=== PATIENT | female | born 1965 | race Caucasian/White ===

== ENCOUNTER → 2018-04-21 22:58 | Outpatient (CLI) | payer OTHER, SELFPAY ==
[2018-04-24 14:27] LABS: HPV Reflexed? NOT INDICATED
== END ==
PROVIDERS: Family Provider Family Medicine; PCP Family Medicine; Visit Provider Nurse Practitioner Adult Health
DX: Z01.419 Encounter for gynecological examination (general) (routine) without abnormal findings (principal)
CPT/HCPCS: 88175; G0145

== ENCOUNTER → 2018-04-23 15:42 | Outpatient (CLI) | payer OTHER, SELFPAY ==
--- NOTE | 2018-04-23 15:48 | RAD_ITS ---
STUDY: X-RAY - CERVICAL SPINE REASON FOR EXAM: Female, 53 years old. Neck pain for one year. TECHNIQUE: 5 view(s) of the cervical spine were obtained. COMPARISON: None FINDINGS: Normal anterior atlantoaxial articulation. Normal odontoid process. Straightening of the cervical spine. Negative for fracture, osteolytic or blastic bone lesion. Moderate disc narrowing and spondylitic endplate changes at C3-4 and C4-5. Mild disc narrowing at C2-3. Minimal disc narrowing at C5-6. Posterior elements are normally located. Foraminal narrowing on the right at C3 and C4. The oblique radiograph of the left side is steep for evaluation of the foramina. I suspect there is also foraminal narrowing at C3 and C4. RAD/Cerv Spine 4 or 5 Views IMPRESSION: Straightening of the cervical spine with otherwise normal alignment. Degenerative disc findings as stated above which are more severe at C3-4 and C4-5 with foraminal narrowing at C3 and C4 on the right. The oblique radiograph demonstrating the left foramina is too steep. Probably foraminal narrowing at the same levels. Electronically Signed: Olga Carranza MD at 0:02 EDT , Service support ,
== END ==
PROVIDERS: Family Provider Family Medicine; PCP Family Medicine; Visit Provider Nurse Practitioner Adult Health
DX: M54.2 Cervicalgia (principal)
CPT/HCPCS: 72050

== ENCOUNTER → 2018-04-25 08:50 | Outpatient (CLI) | payer OTHER, SELFPAY ==
[2018-04-25 09:44] LABS: Anion Gap 6 (5-15); BUN 15 mg/dL (7-18); BUN/Creat Ratio 20.1 RATIO (10-20); Chloride 106 mmol/L (98-107); Cholesterol 177 mg/dL (200); Creatinine, Serum 0.75 mg/dL (0.55-1.02); EST Glomerular Filtration Rate 87 mL/min (>60); Est Glom Filt Rate - Afr Amer 105 mL/min (>60); Glucose 94 mg/dL (74-106); High Density Lipoprotein 58 mg/dL; Potassium 4.2 mmol/L (3.5-5.1); Sodium Level 140 mmol/L (136-145); Thyroid Stim Hormone (TSH) 1.28 uIU/mL (0.358-3.74); Triglycerides 117 mg/dL; Very Low Density Lipoprotein 23 mg/dL (5-40)
== END ==
PROVIDERS: Family Provider Family Medicine; PCP Family Medicine; Visit Provider Nurse Practitioner Adult Health
DX: R63.5 Abnormal weight gain (principal)
CPT/HCPCS: 36415; 80048; 80061; 84443

== ENCOUNTER → 2018-06-10 15:00 | Outpatient (CLI) | payer OTHER, SELFPAY | PROVIDERS: Family Provider Family Medicine; PCP Family Medicine; Visit Provider Family Medicine | DX: Z12.31 Encounter for screening mammogram for malignant neoplasm of breast (principal) | CPT/HCPCS: 77063; 77067 ==

== ENCOUNTER 2018-08-17 15:00 | Outpatient (RCR) | payer OTHER, SELFPAY ==
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
--- NOTE | 2018-08-17 16:06 | HP.PTDCSUM ---
HP - PT D/C Summary It has been my pleasure to treat GENNY NEWMAN under orders from Rainer Teran, for the diagnosis of CERVICAL DDD for a total of 12 visit(s). Discharge Date: 08/17/18 Please see the following information for a summary of their discharge status. - Subjective Subjective: PATIENT REPORTS SHE IS MUCH BETTER OVER ALL. SHE REPORTS THAT THE RETRACTIONS AND ISOMETRIC REALLY HELP WHEN SHE STARTS TO GET INCREASED PAIN. SHE REPORTS THAT OVER-ALL HER PAIN IS MUCH BETTER BUT SHE STILL HAS AT LEAST SOME PAIN ALL THE TIME. SHE REPORTS THAT SHE IS NO LONGER HAVING ANY UE SX'S AND SHE FEELS STRONGER. SHE IS NO LONGER DROPPING THINGS AND SHE IS SLEEPING BETTER. SHE IS NO LONGER BEING AWAKEND AT NIGHT BY NUMBNESS IN HER HANDS. IF I COULD JUST STAY LIKE I AM NOW I WOULD BE FINE. I DON'T HAVE TO TAKE ANY MEDICATION AND THEY EXERCISES HELP A LOT. PATIENT REPORTS SHE WAS VERY SKEPTICAL ABOUT PT BEING ABLE TO HELP BUT SHE IS REALLY GLAD SHE DID IT. PATIENT REPORTS FULL UNLIMITED FUNCTION BECAUSE SHE CAN PUSH THROUGH IF NEEDED. - Pain NECK Pain Intensity (Out of 10): 1 UE'S Pain Intensity (Out of 10): 0 - Overall Improvement % Improvement: 80 - Objective Objective/Function: ALL GOALS MET. THERE IS GOOD INDICATION THAT PATIENT WILL CONTINUE TO IMPROVE WITH FOLLOW THROUGH OF THE INSTRUCTIONS SHE HAS BEEN GIVEN. UPON EXAM: Cervical Mvmt Loss: Flex: NIL. Pro: NIL. Ext: MOD. Ret: MOD. RSB: VERY MINIMAL. LSB: VERY MINIMAL. R Rot: VERY MINIMAL. L Rot: VERY MINIMAL. NO C/O INCREASED PAIN WITH C/S ROM TESTING ALL PLANES. Postural strength: GOOD. INDEP HEP. - Goals Goal 1:: DECREASE C/O NECK AND TYRONE UE SX'S. Goal Progress: Goal Met Goal 2:: IMPROVE LIFTING, READING, WORK, DRIVING, RECREATIONAL AND SLEEP FUNCTION Goal Progress: Goal Met Goal 3:: INSTRUCT IN PROPHYLAXIS Goal Progress: Goal Met - Plan Plan: D/C TO HEP AND PROPER POSTURE CONTROL AND BODY MECHANICS ALONG WITH APPROPRIATE ACTIVITY MODIFICATIONS WHEN PAIN INCRASES. SHE PLANS TO FOLLOW UP WITH DR. TERAN NEEDED. SHE IS AGREEABLE TO DISCHARGE. - D/C Information If there are questions or concerns regarding this patient's physical therapy, please feel free to call me at [phone]. Thank you for the referral of this patient. Sincerely, Joana Starkey
== END 2018-08-17 19:00 | disposition home or self-care (01) ==
LOC: PT 15:00
PROVIDERS: Family Provider Family Medicine; PCP Family Medicine; Visit Provider Family Medicine
DX: M50.30 Other cervical disc degeneration, unspecified cervical region (principal)
CPT/HCPCS: 97012; 97035; 97110; 97140; 97162; 97530

== ENCOUNTER → 2019-04-28 | Outpatient (CLI) | payer OTHER, SELFPAY ==
[2019-04-28 11:18] LABS: Anion Gap 7 (5-15); BUN 17 mg/dL (7-18); BUN/Creat Ratio 21.5 RATIO (10-20); Calcium,Total 9.1 mg/dL (8.5-10.1); Chloride 106 mmol/L (98-107); Cholesterol 214 mg/dL (200); Creatinine, Serum 0.79 mg/dL (0.55-1.02); EST Glomerular Filtration Rate 81 mL/min (>60); Est Glom Filt Rate - Afr Amer 98 mL/min (>60); Glucose 102 mg/dL (74-106); High Density Lipoprotein 54 mg/dL; Potassium 4.1 mmol/L (3.5-5.1); Sodium Level 141 mmol/L (136-145); Triglycerides 169 mg/dL; Very Low Density Lipoprotein 34 mg/dL (5-40)
== END | disposition home or self-care (01) ==
PROVIDERS: Family Provider Family Medicine; PCP Family Medicine; Referring Provider Family Medicine; Visit Provider Family Medicine
DX: Z13.220 Encounter for screening for lipoid disorders (principal); Z13.1 Encounter for screening for diabetes mellitus
CPT/HCPCS: 36415; 80048; 80061

== ENCOUNTER → 2019-06-04 | Outpatient (CLI) | payer OTHER, SELFPAY ==
[2019-04-28 13:27] VITALS: BMI 32.5
--- NOTE | 2019-06-04 13:48 | ECHOCS_ITS ---
Reason For Study: CHEST PAIN Stress Results Protocol: Elijah Protocol WITH DEFINITY Maximum Predicted HR: 167 bpm Target HR: 142 bpm % Maximum Predicted HR: 90 % DurationHeart Rate Stage (mm:ss) (bpm) BP BAELINE 74 142/78 STAGE 1 3:00 104 162/82 STAGE 2 3:00 113 162/84 STAGE 3 3:00 146 180/90 STAGE 4 0:16 151 / RECOVERY 80 122/70 Stress Duration: 9:16 mm:ss Maximum Stress HR: 151 bpm Baseline Echocardiogram Findings Stress Echo Wall motion Data Resting WM Intermediate WM Stress WM Interpretation Summary Exercise stress echo. Indication 54-year-old lady with a history of chest pain. Stress protocol: Resting EKG demonstrates normal sinus rhythm with a rate of 67 bpm occasional premature ventricular complexes is noted. The patient exercised according to regular Elijah protocol for total duration of 9 minutes and 16 seconds. The maximum heart rate attained was 153 bpm which was 91% of maximum predicted heart rate and maximum workload was 11 metabolic equivalents. At rest there were no ST or T wave changes noted suggest ischemia peak exercise upsloping ST changes only were noted with no meet the criteria for ischemia. No clinical angina was noted. The test was terminated due to shortness of breath. The resting blood pressure was 142/78 with a peak blood pressure 180/90 mmHg. No clinical angina was noted. Stress echocardiographic images. Stress echocardiographic images were obtained after resting images were obtained. Definity enhancement was used. There was thickening of all rm noted with reduction in left ventricular cavity size with the resting ejection fraction increasing from 55% to approximately 70%. No wall motion abnormalities were noted. Conclusion: Normal exercise stress echo with no evidence of ischemia. Good functional capacity. No clinical angina noted. Ordering Physician: Fracisco Norton MD Referring Physician: Fracisco Norton Performed By: Li Loo, RDCS, RVT
== END | disposition home or self-care (01) ==
LOC: CVS 13:47
PROVIDERS: Family Provider Family Medicine; PCP Family Medicine; Referring Provider Internal Medicine Cardiovascular Disease; Visit Provider Internal Medicine Cardiovascular Disease
DX: R07.9 Chest pain, unspecified (principal); R00.2 Palpitations
CPT/HCPCS: 93306; Q9957; A4216; C8929

== ENCOUNTER → 2019-11-26 | Outpatient (CLI) | payer OTHER, SELFPAY ==
[2019-04-28 13:27] VITALS: BMI 32.5
--- NOTE | 2019-11-26 15:04 | BI_ITS ---
MAMMOGRAPHY - BILATERAL SCREENING REASON FOR EXAM: Female, 54 years old. Routine annual screening examination. PERTINENT HISTORY: Aunt with breast cancer. Remote left stereotactic breast biopsy. TECHNIQUE: Digital bilateral breast louisa (3D mammographic acquisition) in the CC and MLO projections. 2-D mediolateral oblique (MLO) and craniocaudad (CC) views of both breasts were obtained. CAD: Full Field Digital Mammography with Computer Added Detection was performed. COMPARISON: Comparison is made with prior examination dated June 10, 2018 and October 22, 2006. FINDINGS: Breast Composition: The breasts are heterogeneously dense, which may obscure small masses. There are no dominant masses or suspicious calcifications. No other significant abnormalities are identified. There has been no significant change since the prior study. BI/SCREEN MAMM (CAD) W/LOUISA BILAT IMPRESSION: Stable bilateral screening mammogram. Yearly follow-up mammogram recommended. (A) ASSESSMENT CATEGORY: BIRADS Category 1: Negative. A letter regarding these results will be sent to the patient by the facility within 30 days. Approximately 10% of breast cancers are not detected by mammography. A normal mammogram should not delay biopsy of a clinically suspicious abnormality. [id number] Electronically Signed: Damian Meraz, at 8:39 EST , Service support ,
== END | disposition home or self-care (01) ==
LOC: OPBI 15:03
PROVIDERS: PCP Family Medicine; Referring Provider Family Medicine; Visit Provider Family Medicine
DX: Z12.31 Encounter for screening mammogram for malignant neoplasm of breast (principal)
CPT/HCPCS: 77063; 77067

== ENCOUNTER → 2020-05-18 08:17 | Outpatient (CLI) | payer OTHER, SELFPAY ==
[2019-04-28 13:27] VITALS: BMI 32.5
[2020-05-18 10:50] LABS: BUN 14 mg/dL (7-18); BUN/Creat Ratio 17.5 RATIO (10-20); Calcium,Total 8.6 mg/dL (8.5-10.1); Cholesterol 242 mg/dL (200); EST Glomerular Filtration Rate 79 mL/min (>60); Est Glom Filt Rate - Afr Amer 96 mL/min (>60); Glucose 107 mg/dL (74-106); Triglycerides 166 mg/dL
[2020-05-18 10:51] LABS: Anion Gap 4 (5-15); Chloride 106 mmol/L (98-107); High Density Lipoprotein 56 mg/dL; Potassium 3.8 mmol/L (3.5-5.1); Sodium Level 139 mmol/L (136-145); Very Low Density Lipoprotein 33 mg/dL (5-40)
[2020-05-18 11:03] LABS: Thyroid Stim Hormone (TSH) 2.03 uIU/mL (0.358-3.74)
== END ==
PROVIDERS: PCP Family Medicine; Referring Provider Family Medicine; Visit Provider Nurse Practitioner Adult Health
DX: Z13.1 Encounter for screening for diabetes mellitus (principal); Z13.220 Encounter for screening for lipoid disorders; R53.83 Other fatigue
CPT/HCPCS: 36415; 80048; 80061; 84443

== ENCOUNTER → 2020-06-13 | Outpatient (CLI) | payer OTHER, SELFPAY ==
[2020-06-08 16:10] VITALS: BMI 32.5
--- NOTE | 2020-06-13 15:56 | US_ITS ---
STUDY: ULTRASOUND OF THE FEMALE PELVIS - COMPLETE REASON FOR EXAM: Female, 55 years old. PMB HX C SECTIONS TECHNIQUE: Transabdominal and endovaginal TECHNICAL QUALITY: Adequate. COMPARISON: None. FINDINGS: The uterus is anteverted and is in a midline position. The uterus measures 7.1 x 5.7 x 4.4 cm. There are nabothian cysts at the uterine cervix. One of the nabothian cyst contains an internal echogenic nodule. The endometrium measures 4 mm in thickness, and is hyperechoic. There is no demonstrated endometrial mass. There is a 1.6 cm small fibroid in the posterior uterine body. The patient does not have an I.U.D. The right ovary is visualized. The right ovary measures 2.6 x 1.9 x 1.0 cm. There is a 1.3 cm right ovarian cyst. There is normal arterial and normal venous vascularity. The left ovary is visualized. The left ovary measures 4.3 x 3.1 x 2.5 cm. There is a 2.8 cm left ovarian cyst. There is normal arterial and normal venous vascularity. There is no fluid in the cul-de-sac. US/Pelvic (Non ) IMPRESSION: Multiple nabothian cysts. One of the cysts has an echogenic nodule centrally. Bilateral ovarian cysts. Electronically Signed: Ozzy Haley DO at 20:25 EDT Tel [phone], Service support ,
== END | disposition home or self-care (01) ==
LOC: US 15:56
PROVIDERS: PCP Family Medicine; Referring Provider Obstetrics & Gynecology; Visit Provider Obstetrics & Gynecology
DX: N95.0 Postmenopausal bleeding (principal)
CPT/HCPCS: 76856

== ENCOUNTER → 2020-09-01 15:20 | Outpatient (CLI) | payer OTHER, SELFPAY ==
[2020-06-08 16:10] VITALS: BMI 32.5
--- NOTE | 2020-09-01 15:27 | US_ITS ---
HISTORY: HX STONES ADDITIONAL HISTORY: None provided. COMPARISON: None. TECHNIQUE: Ultrasound of the kidneys and bladder performed with grayscale and color Doppler imaging. FINDINGS: RIGHT KIDNEY: 11.5 x 4.3 x 4.9 cm LEFT KIDNEY: 10.4 x 4.5 x 4.5 cm ECHOGENICITY: Unremarkable. HYDRONEPHROSIS: None. CALCULI: 5 x 3 x 4 mm right renal calculus versus parenchymal calcification. RENAL LESIONS: 1.3 cm right renal cyst for which no follow-up is warranted per consensus guidelines BLADDER: Unremarkable. URETERAL JETS: Visualized Increased hepatic echogenicity. US/Kidney and Bladder IMPRESSION: 1. No acute renal abnormality is sonographically apparent. 2. Right renal calculus versus parenchymal calcification. 3. Right renal cyst. 4. Hepatic steatosis. at 0040 Reported and signed by: Marilu Alicea MD Electronically Signed: Marilu Alicea MD at 0:40 EST Tel , Service support ,
== END ==
PROVIDERS: PCP Family Medicine; Referring Provider Urology; Visit Provider Urology
DX: N20.1 Calculus of ureter (principal)
CPT/HCPCS: 76770

== ENCOUNTER → 2021-03-26 12:43 | Outpatient (CLI) | payer OTHER, SELFPAY ==
[2020-06-08 16:10] VITALS: BMI 32.5
[2021-01-03 08:13] VITALS: BMI 31.5
--- NOTE | 2021-03-26 12:46 | RAD_ITS ---
STUDY: X-RAY - ABDOMEN/PELVIS REASON FOR EXAM: Female, 56 years old. KIDNEY STONES TECHNIQUE: Frontal view of the abdomen COMPARISON: 01 September 2020 FINDINGS: There is no intestinal obstruction. There is a 4 mm calcification projecting over the left upper pelvis, possibly in the distal ureter versus vascular. There is a 2 mm calcification projecting over the right upper abdomen, possibly indicating kidney. Osseous structures are intact. RAD/Abdomen Single View IMPRESSION: Questionable small calcifications possibly urinary calculi. Consider CT for confirmation. Electronically Signed: Reba Haynes MD at 19:48 EDT Tel , Service support ,
== END ==
PROVIDERS: PCP Family Medicine; Referring Provider Urology; Visit Provider Urology
DX: N20.0 Calculus of kidney (principal)
CPT/HCPCS: 74018

== ENCOUNTER → 2021-05-02 08:21 | Outpatient (CLI) | payer OTHER, SELFPAY ==
[2021-01-03 08:13] VITALS: BMI 31.5
[2021-05-02 09:41] LABS: AST(SGOT) 21 U/L (15-37); Alanine Aminotransfer ALT/SGPT 45 U/L (13-56); Albumin, Serum 3.9 g/dL (3.2-5.0); Alkaline Phosphatase 86 U/L (45-117); Anion Gap 7 (5-15); BUN 18 mg/dL (7-18); BUN/Creat Ratio 21.8 RATIO (10-20); Calcium,Total 8.9 mg/dL (8.5-10.1); Chloride 105 mmol/L (98-107); Cholesterol 236 mg/dL (200); Creatinine, Serum 0.83 mg/dL (0.55-1.02); EST Glomerular Filtration Rate 76 mL/min (>60); Est Glom Filt Rate - Afr Amer 92 mL/min (>60); Globulin 3.8 g/dL (2.2-4.2); Glucose 109 mg/dL (74-106); High Density Lipoprotein 57 mg/dL; Potassium 3.9 mmol/L (3.5-5.1); Protein, Total 7.7 g/dL (6.4-8.2); Sodium Level 140 mmol/L (136-145); Triglycerides 121 mg/dL; Very Low Density Lipoprotein 24 mg/dL (5-40)
[2021-05-02 09:45] LABS: Hemoglobin A1c 5.8 % (3.8-5.6)
== END ==
PROVIDERS: PCP Family Medicine; Referring Provider Family Medicine; Visit Provider Family Medicine
DX: E78.5 Hyperlipidemia, unspecified (principal); R73.01 Impaired fasting glucose; Z88.0 Allergy status to penicillin
CPT/HCPCS: 36415; 80053; 80061; 83036

== ENCOUNTER → 2021-05-07 | Outpatient (CLI) | payer OTHER, SELFPAY ==
[2021-01-03 08:13] VITALS: BMI 31.5
== END | disposition home or self-care (01) ==
LOC: LABSPEC 15:09
PROVIDERS: PCP Family Medicine; Referring Provider Nurse Practitioner Family; Visit Provider Nurse Practitioner Family
DX: Z01.419 Encounter for gynecological examination (general) (routine) without abnormal findings (principal)
CPT/HCPCS: 88175; G0145

== ENCOUNTER → 2021-06-29 15:41 | Outpatient (CLI) | payer OTHER, SELFPAY ==
--- NOTE | 2021-06-29 15:43 | RAD_ITS ---
STUDY: X-RAY CHEST REASON FOR EXAM: Female, 56 years old. COUGH TECHNIQUE: Frontal and lateral views COMPARISON: None. FINDINGS: The lungs are clear and expanded. There is no demonstrated pleural abnormality. Normal size heart. Normal mediastinum and renny. Normal visualized pulmonary arteries. Normal visualized aortic arch and descending thoracic aorta. Normal visualized thoracic spine. Normal visualized ribs, clavicles, and shoulders. There is no demonstrated abnormality of the visualized soft tissue structures of the upper abdomen. RAD/Chest PA and Lateral IMPRESSION: Normal x-ray examination of the chest. Electronically Signed: Ozzy Haley DO at 16:13 EDT Tel [phone], Service support ,
[2021-06-29 17:30] LABS: Absolute Lymphocyte Count 4.07 X10^3/uL (0.83-4.51); Absolute Neutrophil Count 4.9 X10^3/uL (2.0-7.7); Basophil# 0.07 X10^3/uL; Basophil% 0.7 % (0-1); Eosinophil# 0.19 X10^3/uL; Eosinophils% 1.9 % (0-5); Hematocrit 39.5 % (37-47); Hemoglobin 12.5 g/dL (12.0-15.0); Lymphocyte # 4.07 X10^3/ul (0.83-4.51); Lymphocyte % 41.3 % (19-41); Mean Corp Hgb Conc 31.6 g/dL (32-36); Mean Corpuscular Hgb 28.7 pg (27.0-32.0); Mean Corpuscular Volume 90.6 fL (81-99); Monocyte# 0.63 X10^3/uL; Monocyte% 6.4 % (0-10); NRBC Flagged by Analyzer 0 % (0-5); Neutrophil # 4.87 X10^3/uL (2.7-7.7); Neutrophil % 49.4 % (47-70); Platelet Count 223 K/mm3 (150-450); RBC Distribution Width CV 12.9 % (11.6-14.6); RBC Distribution Width SD 42.9 fl (35.1-43.9); Red Blood Count 4.36 M/mm3 (4.2-5.4); White Blood Count 9.9 K/mm3 (4.4-11.0)
== END ==
PROVIDERS: PCP Family Medicine; Referring Provider Family Medicine; Visit Provider Family Medicine
DX: R05 Cough (principal)
CPT/HCPCS: 36415; 71046; 85025

== ENCOUNTER → 2021-07-09 16:17 | Outpatient (CLI) | payer OTHER, SELFPAY ==
--- NOTE | 2021-07-09 16:22 | BI_ITS ---
MAMMOGRAPHY - BILATERAL SCREENING REASON FOR EXAM: Female, 56 years old. Routine annual screening examination. PERTINENT HISTORY: Aunt with breast cancer. History of prior left stereotactic breast biopsy. TECHNIQUE: Digital bilateral breast louisa (3D mammographic acquisition) in the CC and MLO projections. 2-D mediolateral oblique (MLO) and craniocaudad (CC) views of both breasts were obtained. CAD: Full Field Digital Mammography with Computer Added Detection was performed. COMPARISON: Comparison is made with prior examination of 11/26/2019 and 06/10/2018. FINDINGS: Breast Composition: The breasts are heterogeneously dense, which may obscure small masses. There are no dominant masses or suspicious calcifications. Stable benign-appearing bilateral axillary lymph nodes. Once again, a tissue clip marker is seen in the deep midportion of the left breast. No other significant abnormalities are identified. There has been no significant change since the prior study. BI/SCRN MAMM (CAD)W/LOUISA BILAT IMPRESSION: Stable bilateral screening mammogram. Yearly follow-up mammogram recommended. (A) ASSESSMENT CATEGORY: BIRADS Category 2: Benign. A letter regarding these results will be sent to the patient by the facility within 30 days. Approximately 10% of breast cancers are not detected by mammography. A normal mammogram should not delay biopsy of a clinically suspicious abnormality. [id number] Electronically Signed: Damian Meraz MD at 8:24 EDT , Service support ,
== END ==
PROVIDERS: PCP Family Medicine; Visit Provider Family Medicine
DX: Z12.31 Encounter for screening mammogram for malignant neoplasm of breast (principal)
CPT/HCPCS: 77063; 77067

== ENCOUNTER 2021-10-17 16:21 | Outpatient (CLI) | payer OTHER, SELFPAY ==
--- NOTE | 2021-10-17 16:30 | RAD_ITS ---
STUDY: X-RAY - ABDOMEN/PELVIS REASON FOR EXAM: Female, 56 years old. Kidney stones. TECHNIQUE: Single AP view of the abdomen / pelvis on 2 images. COMPARISON: 03/26/2021 FINDINGS: Normal visualized lung bases. There is an unremarkable bowel gas pattern. There is no demonstrated free abdominal air. 1 mm in diameter calcifications projected over the lower poles of both kidneys. Normal soft tissue structures. Normal visualized osseous structures. RAD/Abdomen Single View IMPRESSION: Subtle bilateral lower pole nephrocalcinosis. No acute finding. Electronically Signed: Leonrad Patel MD at 9:31 EST , Service support ,
== END 2021-10-17 23:59 | disposition home or self-care (01) ==
LOC: MTRAD 16:22
PROVIDERS: PCP Family Medicine; Referring Provider Urology; Visit Provider Urology
DX: N20.0 Calculus of kidney (principal)
CPT/HCPCS: 74018

== ENCOUNTER 2021-10-26 17:29 | Outpatient (CLI) | payer OTHER, SELFPAY ==
--- NOTE | 2021-10-26 17:36 | CT_ITS ---
INDICATION: KIDNEY STONE EXAMINATION: CT Abdomen And Pelvis W/O Contrast Injection TECHNIQUE: Helically acquired images were obtained of the abdomen and pelvis without the use of IV contrast. A radiation dose optimization technique was used for this scan. Oral contrast: None. COMPARISON: None FINDINGS: Evaluation of the solid organs and vascular structures is limited without intravenous contrast. Visualized lung bases: Unremarkable Liver: Unremarkable Gallbladder: Unremarkable Spleen: Unremarkable Pancreas: Unremarkable Adrenal Glands: Unremarkable Kidneys: Multiple nonobstructing renal calculi bilaterally, largest in the right measuring 5 mm and in the lower pole while largest on the left measures 4 mm also in the lower pole. Vasculature: Unremarkable GI Tract: Unremarkable Lymphadenopathy: None Peritoneum: No ascites. Bladder: Unremarkable Reproductive organs: Unremarkable Bones/Soft tissues: Mild scattered degenerative changes of the visualized spine. . Small infraumbilical anterior abdominal wall hernia containing fat. Grade 1 anterolisthesis L5 on S1. CT/Abdomen/Pelvis without Cont IMPRESSION: Multiple nonobstructing renal calculi bilaterally, largest in the right measuring 5 mm and in the lower pole while largest on the left measures 4 mm also in the lower pole. Small infraumbilical anterior abdominal wall hernia containing fat. Grade 1 anterolisthesis L5 on S1. Electronically Signed: Parker Lr MD at 22:17 EST Tel , Service support ,
== END 2021-10-26 23:59 | disposition short-term general hospital (02) ==
PROVIDERS: PCP Family Medicine; Visit Provider Urology
DX: N20.0 Calculus of kidney (principal); R10.30 Lower abdominal pain, unspecified
CPT/HCPCS: 74176

== ENCOUNTER 2021-11-01 16:47 | Outpatient (CLI) | payer OTHER, SELFPAY ==
--- NOTE | 2021-11-01 16:00 | EMB_PTH ---
PATIENT: GENNY NEWMAN LOC: [facility] U#:[id number] AGE/SX: 56/F ROOM: RE11/01/[address]: Dr. Moon Slater MD : [id number] BED: DIS: 11/01/2021 SPEC #: [id number] RECD: 11/01/21 16:47 STATUS: ELIDA RESolo #: [id number] ARVIND: 11/01/21 16:[address]: Moon Slater DEPT: SURGICAL PATHOLOGY RECD BY: Lorenza Barreto ENTERED: 11/02/21 11:24 SP TYPE: ENDOM BX/C ISIDORO DR: Dr. Perlita Perry MD Tissues: Endometrium, NOS Procedures: Surgery Specimen Level IV HEADER OPERATION: Endometrial biopsy PRE-OP DIAGNOSIS: Abnormal uterine bleeding TISSUE SUBMITTED: Endometrial lining MICROSCOPIC DIAGNOSIS Endometrial biopsy: Scant strips of benign endometrial epithelium. A polypoid fragment of endometrial tissue with cystic changes, may represent a fragment of benign endometrial polyp. Fragments of benign endocervical epithelium. CABRERA:valentin 11/05/2021 MICROSCOPIC DESCRIPTION Slides are reviewed. GROSS DESCRIPTION Received is one container labeled with the patient's name and not further designated. The specimen consists of multiple fragments of hemorrhagic soft tissue mixed with mucoid tissue that in aggregate measure 3 x 2.5 x 0.2 cm. The specimen is totally submitted in one cassette. / CABRERA:valentin 11/02/2021 TC:5 CPT: 42671
== END 2021-11-01 23:59 | disposition short-term general hospital (02) ==
LOC: LABSPEC 11-02 07:44
PROVIDERS: PCP Family Medicine; Referring Provider Obstetrics & Gynecology; Visit Provider Obstetrics & Gynecology
DX: N93.9 Abnormal uterine and vaginal bleeding, unspecified (principal)
CPT/HCPCS: 88305

== ENCOUNTER 2021-11-05 10:44 | Day surgery (SDC) | payer OTHER, SELFPAY ==
--- NOTE | 2021-11-05 09:40 | US_ITS ---
STUDY: ULTRASOUND OF THE FEMALE PELVIS - COMPLETE REASON FOR EXAM: Female, 56 years old. PMB LMP: Patient is postmenopausal. TECHNIQUE: Transabdominal and Transvaginal TECHNICAL QUALITY: Adequate. COMPARISON: Comparison is made with prior study of 06/13/2020. FINDINGS: The uterus is anteverted and is in a midline position. The uterus measures 10 cm x 4.3 cm x 5.3 cm. There is a Nabothian cyst of the cervix. The endometrium is thickened and measures 5.9 mm in thickness, and is hyperechoic. Heterogeneous echotexture of the myometrium suggestive of fibroid change of the lower discrete fibroid is seen. There is no demonstrated myometrial mass. I.U.D. - The patient does not have an I.U.D. The right ovary is visualized. The right ovary measures 2.4 cm x 2.9 cm x 1.3 cm. There is no right ovarian cyst or ovarian mass. There is no visualized right adnexal mass or complex lesion. There is normal arterial and normal venous vascularity. The left ovary is visualized. The left ovary measures 3.1 cm x 3 cm x 3.4 cm. There is a 2.9 cm x 2.2 cm x 3.3 cm left ovarian cyst. There is no visualized left adnexal mass or complex lesion. There is normal arterial and normal venous vascularity. There is no fluid in the cul-de-sac. The pre void volume of the bladder was 318 ml. US/Pelvic (Non ) IMPRESSION: Heterogeneous appearance of the myometrium. Thickened endometrium. Left ovarian cyst measuring 2.9 cm x 2.2 cm x 3.3 cm. Electronically Signed: Damian Meraz MD at 12:48 EST , Service support ,
[2021-11-05 12:37] VITALS: BP 164/91; PULSE 92; RESP 18; TEMP 36.8; O2SAT 100; BMI 33.3
--- NOTE | 2021-11-05 12:37 | HP.PCM_ITS ---
HPI - General HPI Narrative GENNY NEWMAN, is a 56 F who presents for definitive management of a right renal calculus. She continues to intermittently pass stones with significant pain. There is a visible 5 mm stone on her KUB and we will proceed with management via extracorporal shockwave lithotripsy. Informed consent was obtained. [facility] Medical History (Updated 11/05/21 @ 12:[address] 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 pets and animals: Yes leisure activities: other history of recent travel: Yes ([place], [place], [place]) sexually active: Yes do you think of yourself as: straight/heterosexual current gender identity: female Smoking Status: Never smoker alcohol intake: current well-balanced diet: daily or most days caffeine: No eating out: 1-3 times/week during the past year weight has: remained stable what type of physical activity do you participate in: walking How many days of moderate to strenuous exercise, like a brisk walk, did you do in the last 7 days: 5 frequency: 5-6 times per week duration: 15-30 minutes/day seatbelt use: always do you feel safe at home: Yes 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[employer] Constitutional Constitutional: Denies anorexia, body ache(s), change in weight, chills, fever(s) or lethargy Eyes Eyes: Reports systems reviewed and no addt'l complaints, except as documented ENT HEENT: Reports systems reviewed and no addt'l complaints, except as documented Cardiovascular Cardiovascular: Denies chest pain, dyspnea, irregular heart rhythm, nausea, syncope, tachypnea or vomiting Respiratory/Chest Respiratory/Chest: Denies chest congestion, chest tightness, cough, dyspnea or inability to speak Gastrointestinal Gastrointestinal: Denies nausea or vomiting Genitourinary Genitourinary: Denies flank pain, urinary frequency, urinary hesitancy or urinary incontinence Musculoskeletal Musculoskeletal: Reports systems reviewed and no addt'l complaints, except as documented Integumentary Integumentary: Reports systems reviewed and no addt'l complaints, except as documented Neurologic Neurologic: Reports systems reviewed and no addt'l complaints, except as documented Psychiatric Psychiatric: Reports systems reviewed and no addt'l complaints, except as documented Endocrine Endocrinology: Reports systems reviewed and no addt'l complaints, except as documented Hematologic/Lymphatic Hematologic/Lymphatic: Reports systems reviewed and no addt'l complaints, except as documented Allergic/Immunologic Allergic/Immunologic: Reports systems reviewed and no addt'l complaints, except as documented Physical Exam Const alert, oriented x3 and no apparent distress General Appearance: cooperative, comfortable and well kempt HEENT normocephalic, head/scalp atraumatic, hearing grossly normal bilaterally, external ears normal, external nose normal and moist oral mucous membranes Eyes conjunctivae normal and no scleral icterus General Eye: normal appearance of both eyes Neck supple General: normal visual inspection and trachea midline Lymph Lymphatic: no lymphedema noted Chest inspection of chest normal Chest: symmetrical chest wall rise Resp normal respiratory effort, normal air movement, no retractions and no use of accessory muscles Cardio regular rate and regular rhythm GI soft to palpation, non-tender and non-distended no CVA tenderness and external exam normal Back/Spine no CVA tenderness, normal ROM and normal to inspection Extremity normal to inspection, no calf tenderness and no pedal edema Skin no rashes or lesions noted, no wounds, skin turgor normal, no jaundice, no petechiae and no mottling Neuro oriented x3, CN's II-XII intact bilaterally and moves all extremities Psych mental status grossly normal, thought process normal, cooperative, affect no rmal, speech normal and activity/motor behavior normal Assessment & Plan Assessment/Plan (1) Renal calculus: PLAN: Proceed with extracorporal shockwave lithotripsy of a right renal calculus, informed consent was obtained. We discussed the risks of the procedure including the risks of anesthesia, bleeding, infection, injury to the kidney. She understands and agrees to proceed. Procedure Criteria Type of Procedure Procedure Type: Elective Elective Risks - COVID COVID Risk Discussion: The surgeon/proceduralist and patient have discussed in detail the risk of exposure to and/or potential harm posed by the COVID-19 virus with having a surgery/procedure at this time versus the risk of delaying the surgery/procedure. It is not possible to know either the risk of delaying the surgery or procedure or chance of getting an infection with perfect accuracy, but a joint decision was made between the patient and the surgeon/proceduralist to proceed at this time with the scheduled surgery/procedure as indicated on the consent form.
--- NOTE | 2021-11-05 12:42 | PCM.OPRPT ---
Problems Associated Problem List Diagnoses (1) Renal calculus: Report of Operation Date of Procedure: 11/05/21 Pre-Operative Diagnosis: Right renal calculus Post-Operative Diagnosis: Same Surgery/Procedure Performed:: Right renal extracorporal shockwave lithotripsy Surgeon: Uma Graham Type of Anesthesia: General Specimen's removed: None Description of Procedure: The patient is a 56-year-old female who presents for definitive management of her right-sided renal calculus. Informed consent was obtained. The patient was taken the operating room and placed on the operating room table. Anesthesia monitored the head, neck, airway, IV access and vital signs throughout the case. Once anesthesia was apparently ministered the patient was aligned with a lithotripter. Her stone was identified. 3000 shocks were applied to the stone which appeared to be well fragmented at the conclusion of the case. At this time the patient was awakened and taken to the recovery room in good condition. There were no complications during this procedure. Grafts/Implants Used: None Complications None Admit VTE Documentation VTE Present on Admission: Yes VTE Mechan Device Prophylaxis: SCD's VTE Pharm Prophylaxis ordered?: No Reason prophylaxis not ordered:: Treatment Not Indicated
[2021-11-05] MEDS: Lactated Ringers 1,000 ML 15 ML IV (12:57)
[2021-11-05 13:19] LABS: Absolute Lymphocyte Count 2.34 X10^3/uL (0.83-4.51); Basophil# 0.04 X10^3/uL; Basophil% 0.4 % (0-1); Eosinophil# 0.06 X10^3/uL; Eosinophils% 0.6 % (0-5); Hematocrit 40.1 % (37-47); Hemoglobin 13.1 g/dL (12.0-15.0); Lymphocyte # 2.34 X10^3/ul (0.83-4.51); Lymphocyte % 23.2 % (19-41); Mean Corp Hgb Conc 32.7 g/dL (32-36); Mean Corpuscular Hgb 28.7 pg (27.0-32.0); Mean Corpuscular Volume 87.9 fL (81-99); Mean Platelet Vol. 9.2 fl (6.2-12.0); Monocyte# 0.61 X10^3/uL; NRBC Flagged by Analyzer 0 % (0-5); Neutrophil # 7.02 X10^3/uL (2.7-7.7); Neutrophil % 69.5 % (47-70); Platelet Count 205 K/mm3 (150-450); RBC Distribution Width CV 12.8 % (11.6-14.6); RBC Distribution Width SD 41.2 fl (35.1-43.9); Red Blood Count 4.56 M/mm3 (4.2-5.4); White Blood Count 10.1 K/mm3 (4.4-11.0)
[2021-11-05 13:49] LABS: ALB/GLOB Ratio 1.1 RATIO (0.9-2.4); AST(SGOT) 29 U/L (15-37); Alanine Aminotransfer ALT/SGPT 61 U/L (13-56); Albumin, Serum 3.9 g/dL (3.2-5.0); Alkaline Phosphatase 91 U/L (45-117); Anion Gap 7 (5-15); BUN 11 mg/dL (7-18); BUN/Creat Ratio 14.7 RATIO (10-20); Calcium,Total 8.9 mg/dL (8.5-10.1); Chloride 105 mmol/L (98-107); Creatinine, Serum 0.75 mg/dL (0.55-1.02); EST Glomerular Filtration Rate 85 mL/min (>60); Est Glom Filt Rate - Afr Amer 103 mL/min (>60); Estimated Creatinine Clearance 96.73 ml/min; Globulin 3.5 g/dL (2.2-4.2); Glucose 105 mg/dL (74-106); Potassium 3.8 mmol/L (3.5-5.1); Protein, Total 7.4 g/dL (6.4-8.2); Sodium Level 138 mmol/L (136-145)
--- NOTE | 2021-11-05 14:18 | PCM.DC ---
Discharge Instructions Diet Discharge Diet: No restrictions Activity Discharge Activity: Return to Normal Activity and May Not Drive (while taking narcotics) May resume sexual activity in: No Restrictions Dressing / Incision Call your doctor if you observe: Fever of 101 or Higher, Inability to urinate and Inability to have a bowel movement Follow Up Care Please Follow Up With: Uma Graham MD When: in the office with KUB in 2-3 weeks. call for appt Test Results: Test results from this visit will be discussed in further detail at your follow-up appointment, if applicable. Discharge Plan Admission Attending Provider: Uma Graham Primary Care Provider: Perlita Perry Discharge Orders/Prescriptions Prescriptions: New oxycodone-acetaminophen [Percocet] 5-325 mg tablet 1 tab PO Q8H PRN (Reason: pain) 7 Days Qty: 20 RF: 0 cephalexin [cephalexin] 500 MG capsule 500 mg PO Q12 3 Days Qty: 6 RF: 0 ondansetron HCl [ondansetron HCl] 8 MG tablet 8 mg PO Q8H PRN PRN (Reason: Nausea) 7 Days Qty: 20 RF: 0 Referrals / Follow Up: Perlita Perry MD [Primary Care Provider] - Disposition Disposition (needs filled in before D/C Order can be placed): Home, Self Care
[2021-11-05] MEDS: Cefazolin 2 GM in 0.9% Normal Saline 100 ML IV (14:25)
[2021-11-05 15:10] VITALS: BP 144/92; BP 164/91; PULSE 77; RESP 16; TEMP 36.8; O2SAT 100
[2021-11-05 15:15] VITALS: BP 150/81; BP 164/91; PULSE 69; RESP 16; O2SAT 97
[2021-11-05 15:30] VITALS: BP 146/88; BP 164/91; PULSE 65; RESP 16; O2SAT 100
[2021-11-05 15:51] VITALS: BP 160/95; BP 164/91; PULSE 69; RESP 16; TEMP 37.1; O2SAT 97
[2021-11-05] MEDS: oxyCODONE 5 MG Tablet PO (16:15)
[2021-11-05] MEDS: Acetaminophen 325 MG Tablet PO (16:15)
[2021-11-05 16:49] VITALS: BP 146/90; BP 164/91; PULSE 80; RESP 16; TEMP 36.2; O2SAT 97
== END 2021-11-05 23:59 | disposition home or self-care (01) ==
LOC: SDC 11:43 → AC 11:45
PROVIDERS: PCP Family Medicine; Visit Provider Urology
PROC: (CPT 50590; principal; 2021-11-05 14:05)
DX: N20.0 Calculus of kidney (principal); E66.9 Obesity, unspecified; Z68.33 Body mass index [BMI] 33.0-33.9, adult
CPT/HCPCS: 50590; 00873; 76830; 76856; 80053; 85025; J7120; J2405

== ENCOUNTER 2021-11-23 23:36 | Emergency (ER) | payer OTHER, SELFPAY ==
[2021-11-23 23:38] VITALS: BP 159/128; PULSE 113; RESP 22; TEMP 35.7; O2SAT 98; BMI 31.3
--- NOTE | 2021-11-23 23:45 | EX.ED.DYSGE1 ---
HPI History of Present Illness Chief Complaint: Flank Pain Informant: patient Narrative Narrative: Patient presents with right flank pain. She had as well procedure done about 2 weeks ago. She thinks it was done on the right. She was going to have another one done for a stone on the left. She had been doing well since then. Since this Friday, she has had some suprapubic pressure off and on. She was seen in Dr. Graham's office today. There was some blood in the urine but the patient was not having the pain that she has now. There was suspicion of UTI because of her slow onset of symptoms. She was started on Macrobid and Pyridium. About 2 hours ago she got onset of right flank pain that is consistent with her prior stones. This is different than what she had in the office. Nothing makes the pain better or worse. When the pain is bad she does get nauseated and she did just have a small episode of vomiting. No blood. No fevers or chills. Of note, there is been no injury straining lifting or trauma that would explain her symptoms. [facility] Medical History MRSA infection Obesity Post-menopausal Renal calculus Wears contact lenses Home Medications cephalexin 500 mg PO Q12 3 Days #6 capsule 11/05/21 [Rx Last Taken Unknown] ondansetron HCl 8 mg PO Q8H PRN PRN 7 Days #20 tablet 11/05/21 [Rx Last Taken Unknown] oxycodone-acetaminophen [Percocet] 1 tab PO Q8H PRN 7 Days #20 tab 11/05/21 [Rx Last Taken Unknown] oxycodone-acetaminophen [Percocet] 1 tab PO Q6H PRN 3 Days #12 tab 11/24/21 [Rx Last Taken Unknown] tamsulosin [Flomax] 0.4 mg PO DAILY #10 cap 11/24/21 [Rx Last Taken Unknown] Allergy/AdvReac Type Severity Reaction Status Date / Time No Known Allergies Allergy Verified 11/23/21 23:37 Family History Father Heart disease Aunt Breast cancer Mother Parkinson disease Surgical History History of History of laparoscopy Social History household members: spouse housing: house number of children: 3 current occupational status: employed 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 pets and animals: Yes leisure activities: other history of recent travel: Yes ([place], [place], [place]) sexually active: Yes Smoking Status: Never smoker alcohol intake: current well-balanced diet: daily or most days caffeine: No eating out: 1-3 times/week during the past year weight has: remained stable what type of physical activity do you participate in: walking frequency: 5-6 times per week duration: 15-30 minutes/day seatbelt use: always do you feel safe at home: Yes 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 ; Denies constipation, diarrhea or melena Genitourinary Genitourinary ED: Reports hematuria and other Details: See history of present illness. Musculoskeletal Musculoskeletal: Reports back pain and other Details: Right flank/back pain. Patient actually points more to the lateral aspect of her right flank not so much at the CVA area. Integumentary Denies rash Neurologic Neurologic: Denies headache(s) Endocrine Endocrinology: Denies polyuria Allergic/Immunologic Allergic/Immunologic ED: Denies urticaria EXAM Physical Exam Const Vital Signs: 11/23/21 23:38 Temperature 96.3 F L Temperature Source Temporal Pulse Rate 113 H Respiratory Rate 22 H Blood Pressure 159/128 H Blood Pressure Mean 138 Pulse Ox 98 Oxygen Delivery Method Room Air Positive well nourished and well developed Constitutional Narrative: Patient looks uncomfortable. She is moving in bed and rocking a little bit side to side. She is holding her right side. She is awake alert. General Appearance ED: well developed; Negative for cyanotic HEENT Reports moist mucous membranes Eyes General Eye ED: Negative for pale conjunctiva or scleral icterus Neck no JVD Resp normal respiratory effort and clear to auscultation bilaterally Cardio regular rhythm and no murmurs Rate: tachycardic GI normal to inspection, nondistended, normoactive bowel sounds, non-tender and non-distended GI Narrative: No anterior abdominal tenderness at all. There is some mild tenderness with deep palpation just lateral to the typical CVA area. Auscultation: normoactive bowel sounds Palpation: soft Back/Spine General Back: CVA tenderness Extremity normal to inspection Neuro Sensorium / Orientation: alert Psych mental status grossly normal Skin no rashes or lesions noted and no wounds MDM MDM MDM Narrative Medical decision making narrative: CBC shows no elevation of white count. Electrolytes show minimal decrease of potassium at 3.4 that does not require acute correction. Glucose was elevated 176. This will need recheck but does not need treatment. Urine is overall clear. No white cells. There is some positive nitrites but she is on Pyridium. CT scan shows a distal right UVJ stone at 3 mm. This should pass. Dr. Graham had called in about this patient. I called her back and talk with her. We are both okay with discharge and follow-up. The shunt stone should pass. She will continue her current medications. I will add Flomax and I will write for some Percocet. She had some from her procedure a couple weeks ago. She states she has some left but she has no idea how many. I will also write for some Zofran in case she has problems with nausea. Lab Data Attestation: I reviewed the patient's lab results. Labs: Laboratory Results - last 24 hr 11/24/21 11/24/21 11/24/21 00:15 00:15 00:15 WBC 9.8 RBC 4.46 Hgb 12.9 Hct 39.6 MCV 88.8 MCH 28.9 MCHC 32.6 RDW Std Deviation 40.8 RDW Coeff of Kit 12.6 Plt Count 204 MPV 9.5 Immature Gran % (Auto) 0.300 Neut % (Auto) 57.8 Lymph % (Auto) 32.8 Elbert % (Auto) 6.3 Eos % (Auto) 2.3 Baso % (Auto) 0.5 Absolute Neuts (auto) 5.7 Absolute Lymphs (auto) 3.21 Nucleated RBC % 0 Sodium 141 Potassium 3.4 L Chloride 109 H Carbon Dioxide 25.0 Anion Gap 7 BUN 20 H Creatinine 1.01 Estim Creat Clear Calc 67.60 Est GFR (MDRD) Af Amer 73 Est GFR (MDRD) Non-Af 60 BUN/Creatinine Ratio 19.8 Glucose 176 H Calcium 8.9 Urine Color Yellow Urine Clarity Clear Urine pH 6.0 Ur Specific [place] 1.020 Urine Protein 30 H Urine Glucose (UA) 250 H Urine Ketones Negative Urine Occult Blood 25 H Urine Nitrite Positive H Urine Bilirubin 1 H Urine Urobilinogen 4 H Ur Leukocyte Esterase Negative Urine RBC 0-5 SEEN Urine WBC 0 SEEN Ur Squamous Epith Cells 0 SEEN Urine Bacteria 0 SEEN Urine Mucus 0 SEEN Radiography Diagnostic Testing: Clinical Impression(s) from Imaging Studies Abdomen/Pelvis CT 11/23/21 23:57 IMPRESSION: 3 mm calculus at the right ureterovesical junction. Mild upstream dilatation of the collecting system with right renal enlargement and perinephric stranding. Findings are likely postobstructive but would correlate clinically to exclude superimposed infection. Electronically Signed: Brenton Ceballos MD at 1:03 EST Reading Location ID and State: [facility] / [place] Tel , Service support , Discharge Plan Triage Chief Complaint: Flank Pain ED Provider: Khanh Hutchins Dx/Rx/DC Orders Clinical Impression: Kidney stone on right side, Hydronephrosis, right Instructions: ED Kidney Stone w/ Colic Prescriptions: New oxycodone-acetaminophen [Percocet] 5-325 mg tablet 1 tab PO Q6H PRN (Reason: pain) 3 Days Qty: 12 RF: 0 tamsulosin [Flomax] 0.4 mg capsule 0.4 mg PO DAILY Qty: 10 RF: 0 No Action oxycodone-acetaminophen [Percocet] 5-325 mg tablet 1 tab PO Q8H PRN (Reason: pain) 7 Days Qty: 20 RF: 0 cephalexin [cephalexin] 500 MG capsule 500 mg PO Q12 3 Days Qty: 6 RF: 0 ondansetron HCl [ondansetron HCl] 8 MG tablet 8 mg PO Q8H PRN PRN (Reason: Nausea) 7 Days Qty: 20 RF: 0 Primary Care Provider: Forest Curtis Referrals: Uma Graham MD [STAFF PHYSICIAN] - 3-5 Days Forest Curtis MD [Primary Care Provider] - Disposition Disposition: Home, Self Care
--- NOTE | 2021-11-23 23:57 | CT_ITS ---
EXAM: CT ABDOMEN AND PELVIS WITHOUT INTRAVENOUS CONTRAST CLINICAL INDICATION: Pain TECHNIQUE: Helically acquired images were obtained of the abdomen and pelvis without intravenous contrast. CTDIvol = ( 8.40 ) mGy, DLP = ( 392.50 ) mGycm This CT exam was performed using one or more of the following dose reduction techniques: automated exposure control, adjustment of the mA and/or kV according to patient size, and/or use of iterative reconstruction technique. This report was created using [employer] report generation technology. COMPARISON: None. FINDINGS: LOWER THORAX: Unremarkable. Lung bases are clear. No cardiomegaly. No significant pericardial effusion. ABDOMEN: LIVER: Unremarkable. Homogeneous. GALLBLADDER AND BILE DUCTS: Distended gallbladder. No cholelithiasis or acute cystitis. No intra- or extrahepatic biliary ductal dilation. PANCREAS: Unremarkable. No focal cystic mass. SPLEEN: Unremarkable. Normal size without focal cystic or solid mass. ADRENALS: Unremarkable. No nodules. KIDNEYS AND URETERS: Multiple left lower pole renal calyceal calcified measuring up to 4 mm. 3 mm calculus at the right ureterovesical junction. Mild upstream dilatation of the collecting system with right renal enlargement and perinephric stranding. Findings are likely postobstructive but would correlate clinically to exclude superimposed infection. No other renal abnormalities. STOMACH AND BOWEL: Unremarkable. No stomach or bowel distention. No focal inflammatory change. PELVIS: APPENDIX: No evidence of acute appendicitis. BLADDER: See above. REPRODUCTIVE: 3.6 cm left ovarian cyst which is benign. ABDOMEN and PELVIS: INTRAPERITONEAL SPACE: Unremarkable. No ascites or other fluid collection. No free air. 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 No suspicious lytic or blastic abnormality. SOFT TISSUES: Unremarkable. No discrete abdominal or pelvic wall hernia. VASCULATURE: Unremarkable. Abdominal aorta is non-dilated. LYMPH NODES: Unremarkable. No enlarged lymph nodes. CT/Abdomen/Pelvis without Cont IMPRESSION: 3 mm calculus at the right ureterovesical junction. Mild upstream dilatation of the collecting system with right renal enlargement and perinephric stranding. Findings are likely postobstructive but would correlate clinically to exclude superimposed infection. Electronically Signed: Brenton Ceballos MD at 1:03 EST ,
[2021-11-24] MEDS: Ondansetron 4 MG/2 ML Vial IV ×2 (00:20→02:53)
[2021-11-24] MEDS: Morphine 4 MG/ML Syringe IV ×2 (00:20→02:20)
[2021-11-24 00:26] LABS: Bacteria 0 SEEN /hpf (None Seen); Mucous, Urine 0 SEEN /hpf (<or=2+); Squamous Epithelial Cells - UA 0 SEEN /hpf (5-10); White Blood Cells 0 SEEN /hpf (0-5)
[2021-11-24 00:27] LABS: Absolute Lymphocyte Count 3.21 X10^3/uL (0.83-4.51); Absolute Neutrophil Count 5.7 X10^3/uL (2.0-7.7); Basophil# 0.05 X10^3/uL; Basophil% 0.5 % (0-1); Eosinophil# 0.23 X10^3/uL; Eosinophils% 2.3 % (0-5); Hematocrit 39.6 % (37-47); Hemoglobin 12.9 g/dL (12.0-15.0); Lymphocyte # 3.21 X10^3/ul (0.83-4.51); Lymphocyte % 32.8 % (19-41); Mean Corp Hgb Conc 32.6 g/dL (32-36); Mean Corpuscular Hgb 28.9 pg (27.0-32.0); Mean Corpuscular Volume 88.8 fL (81-99); Mean Platelet Vol. 9.5 fl (6.2-12.0); Monocyte# 0.62 X10^3/uL; Monocyte% 6.3 % (0-10); NRBC Flagged by Analyzer 0 % (0-5); Neutrophil # 5.66 X10^3/uL (2.7-7.7); Neutrophil % 57.8 % (47-70); Platelet Count 204 K/mm3 (150-450); RBC Distribution Width CV 12.6 % (11.6-14.6); RBC Distribution Width SD 40.8 fl (35.1-43.9); Red Blood Count 4.46 M/mm3 (4.2-5.4); White Blood Count 9.8 K/mm3 (4.4-11.0)
[2021-11-24 00:29] LABS: Color, Urine Yellow (Yellow); Glucose, Dipstick 250 mg/dl (Normal); Ketone-Dipstick Negative (Negative); Leukocyte Esterase-Dipstick Negative /ul (Negative); Nitrite-Dipstick Positive (Negative); Occult Blood-Urine 25 /ul (Negative); Protein-Dipstick 30 mg/dl (Negative); Urine Clarity Clear (Clear); Urine Urobilinogen 4 mg/dl (Normal)
[2021-11-24 00:40] LABS: Anion Gap 7 (5-15); BUN 20 mg/dL (7-18); BUN/Creat Ratio 19.8 RATIO (10-20); Calcium,Total 8.9 mg/dL (8.5-10.1); Chloride 109 mmol/L (98-107); Creatinine, Serum 1.01 mg/dL (0.55-1.02); EST Glomerular Filtration Rate 60 mL/min (>60); Est Glom Filt Rate - Afr Amer 73 mL/min (>60); Glucose 176 mg/dL (74-106); Potassium 3.4 mmol/L (3.5-5.1); Sodium Level 141 mmol/L (136-145)
[2021-11-24 00:41] LABS: Red Blood Cells-Urine 0-5 SEEN /hpf (0-5); Urine Bilirubin Dipstick 1 mg/dL (Negative)
[2021-11-24 02:41] VITALS: RESP 18
[2021-11-24] MEDS: Ketorolac 15 MG/ML Vial IV (02:52)
== END 2021-11-24 03:03 | disposition home or self-care (01) ==
PROVIDERS: Emergency Provider Emergency Medicine; PCP Family Medicine; Visit Provider Emergency Medicine
DX: N13.2 Hydronephrosis with renal and ureteral calculous obstruction (principal); R11.2 Nausea with vomiting, unspecified; R31.9 Hematuria, unspecified; Z87.442 Personal history of urinary calculi; Z78.0 Asymptomatic menopausal state; Z86.14 Personal history of Methicillin resistant Staphylococcus aureus infection; E66.9 Obesity, unspecified; R73.9 Hyperglycemia, unspecified
CPT/HCPCS: 74176; 80048; 81001; 85025; 96361; 96374; 96375; 96376; 99284; J7030; A4216; J2405

== ENCOUNTER 2021-11-26 10:15 | Outpatient (CLI) | payer OTHER, SELFPAY | END 2021-11-26 23:59 | disposition home or self-care (01) | LOC: LABSPEC 11-27 10:15 | PROVIDERS: PCP Family Medicine; Visit Provider Obstetrics & Gynecology | DX: R30.0 Dysuria (principal) | CPT/HCPCS: 87077; 87086; 87088; 87186 ==

== ENCOUNTER 2021-12-07 16:30 | Outpatient (CLI) | payer OTHER, SELFPAY ==
--- NOTE | 2021-12-07 16:33 | CT_ITS ---
EXAM: CT CHEST WITH INTRAVENOUS CONTRAST CLINICAL INDICATION: ABN FINDING OF LUNG FIELD LUNG NODULE TECHNIQUE: Helically acquired images were obtained of the chest with intravenous contrast. This CT exam was performed using one or more of the following dose reduction techniques: automated exposure control, adjustment of the mA and/or kV according to patient size, and/or use of iterative reconstruction technique. This report was created using [employer] report generation technology. CONTRAST: IV 100mL [id number] COMPARISON: None. FINDINGS: LUNGS AND PLEURAL SPACES: No visualized pulmonary nodules. No pleural effusion or thickening. No pneumothorax. HEART: Unremarkable. Heart size is normal. No pericardial effusion. No significant coronary artery calcifications. MEDIASTINUM: Unremarkable. No mediastinal or hilar adenopathy. Esophagus is unremarkable. No hiatal hernia. THYROID: Unremarkable. No thyroid lesions. BONES/JOINTS: There are degenerative findings of the thoracic spine. No suspicious lytic or blastic abnormality. VASCULATURE: Unremarkable. Thoracic aorta is non-dilated. No thoracic aortic dissection. No obvious central pulmonary embolism although this study was not performed with the pulmonary embolism protocol. LIVER: There is diffuse fatty infiltration of the liver. CT/Chest WITH Contrast IMPRESSION: 1. There is diffuse fatty infiltration of the liver. 2. No visualized pulmonary nodules. Electronically Signed: Froy Reza MD at 20:48 EST ,
== END 2021-12-07 23:59 | disposition home or self-care (01) ==
LOC: CT 16:31
PROVIDERS: PCP Family Medicine; Referring Provider Family Medicine; Visit Provider Family Medicine
DX: R91.8 Other nonspecific abnormal finding of lung field (principal)
CPT/HCPCS: 71260

== ENCOUNTER 2021-12-10 09:06 | Outpatient (CLI) | payer OTHER, SELFPAY ==
--- NOTE | 2021-12-10 09:14 | CDU_ITS ---
Reason For Study: CAROTID BRUIT Rt. Velocities/BP Lt. Velocities/BP Prox CCA 112.9/17.7 cm/sec. Prox CCA 118.5/23.6 cm/sec. Mid CCA 115.5/23.0 cm/sec. Mid CCA 105.8/34.5 cm/sec. Dist CCA 86.9/19.0 cm/sec. Dist CCA 93.0/32.7 cm/sec. Prox ICA 71.0/23.7 cm/sec. Prox ICA 67.9/22.3 cm/sec. Mid ICA 75.4/27.0 cm/sec. Mid ICA 111.5/31.4 cm/sec. Dist ICA 83.1/32.5 cm/sec. Dist ICA 83.8/25.4 cm/sec. Rt. ICA/CCA = 83.1/115.5=0.7. Lt. ICA/CCA = 111.8/105.8=1.0. Prox ECA 62.2/9.4 cm/sec. Prox ECA 91.1/12.6 cm/sec. Rt. Vert. 58.9/21.5 cm/sec. Lt. Vert. 78.3/27.2 cm/sec. Right Extracranial There is homogeneous, smooth atherosclerotic plaque noted in the right common carotid artery. There is intimal thickening but no significant atherosclerotic plaque noted in the right internal carotid artery. There is no significant atherosclerotic plaque noted in the right external carotid artery. Antegrade flow is noted in the right vertebral artery. Left Extracranial There is intimal thickening but no significant atherosclerotic plaque noted in the left common carotid artery. The left internal carotid artery is very tortuous. There is intimal thickening but no significant atherosclerotic plaque noted in the left internal carotid artery. There is no significant atherosclerotic plaque noted in the left external carotid artery. Antegrade flow is noted in the left vertebral artery. Procedure Carotid Duplex [id number]. This is a Carotid Duplex examination using B-mode, color flow and specral Doppler. Exam performed in department. VL/Carotid Duplex Ultrasound Interpretation Summary No significant atherosclerotic plaque or stenosis noted in the internal carotid arteries bilaterally. Flow within the vertebral arteries is antegrade bilaterally. Ordering Physician: Forest Curtis Referring Physician: Forest Curtis Performed By: Myriam Yi, PETRA, RVT
== END 2021-12-10 23:59 | disposition home or self-care (01) ==
LOC: CVS 09:09
PROVIDERS: PCP Family Medicine; Referring Provider Family Medicine; Visit Provider Family Medicine
DX: R91.8 Other nonspecific abnormal finding of lung field (principal); R09.89 Other specified symptoms and signs involving the circulatory and respiratory systems
CPT/HCPCS: 93880

== ENCOUNTER 2021-12-25 06:07 | Day surgery (SDC) | payer OTHER, SELFPAY ==
--- NOTE | 2021-12-25 05:46 | HP.PCM_ITS ---
History and Physical Date of Admission: 12/25/21 Vital Signs 11/26/21 09:55 11/26/21 10:38 Height 4 ft 10 in Weight: 153 lb BMI 31.9 31.9 Intake Visit Reasons: Discuss getting D&C Allergies No Known Allergies Allergy (Verified 11/26/21 09:56) Medications cephalexin 500 mg PO Q12 3 Days #6 capsule 11/05/21 [Rx Confirmed 11/26/21] ondansetron HCl 8 mg PO Q8H PRN PRN 7 Days #20 tablet 11/05/21 [Rx Confirmed 11/26/21] oxycodone-acetaminophen [Percocet] 1 tab PO Q8H PRN 7 Days #20 tab 11/05/21 [Rx Confirmed 11/26/21] ondansetron 4 mg PO Q8H PRN #10 tab 11/24/21 [Rx Confirmed 11/26/21] oxycodone-acetaminophen [Percocet] 1 tab PO Q6H PRN 3 Days #12 tab 11/24/21 [Rx Confirmed 11/26/21] tamsulosin [Flomax] 0.4 mg PO DAILY #7 cap 11/24/21 [Rx Confirmed 11/26/21] PFSH Medical History MRSA infection Obesity Post-menopausal Renal calculus Wears contact lenses Surgical History History of History of laparoscopy Family History Father Heart disease Aunt Breast cancer Mother Parkinson disease Social History household members: spouse housing: house number of children: 3 current occupational status: employed 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 pets and animals: Yes leisure activities: other history of recent travel: Yes ([place], [place], [place]) sexually active: Yes Smoking Status: Never smoker alcohol intake: current well-balanced diet: daily or most days caffeine: No eating out: 1-3 times/week during the past year weight has: remained stable what type of physical activity do you participate in: walking frequency: 5-6 times per week duration: 15-30 minutes/day seatbelt use: always do you feel safe at home: Yes 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 she has recently had bladder pressure, had recent stone and lithotripsy by Gladys, has been on pyridium and macrobid. She had an EMB that showed polyp fragments. she had PMB. she still needs surgery on her left side. Upon review of her most recent culture it grew out E. coli that was sensitive to Macrobid. Female Reproductive History Menopausal Symptoms: No hot flashes, No night sweats, No difficulty concentrating and No change in libido Pregancy History 4 Elective abortions Hx Para 4 Spontaneous abortions Hx # Term Pregnancies Ectopic pregnancies Hx # Pregnancies Multiple births # of living children 4 Past Pregnancies Del. Date Name GA/Weeks Outcome Route Bth Weight Infant Gen Labor Lgth Anesthesia Del Locatn Provider FOB Unknown 1988- Luisa 24 Unknown 1990-Richard Unknown 1991- Tia Unknown 1992- Larissa Delivery Date: a few hours after - GBS infection Millicent Charlton Delivery Date: No notes to display Delivery Date: No notes to display Delivery Date: No notes to display ROS Const Constitutional: Denies fatigue, night sweats, weight gain or weight loss ENT ENT: Reports system reviewed and no additional complaints, except as documented Cardio Card: Denies chest pain Resp Resp: Denies cough or dyspnea GI GI: Reports as per HPI; Denies constipation, nausea or vomiting : Reports as per HPI; Denies hot flashes, nipple discharge, vaginal discharge, vaginal dryness, vaginal odor or vaginal pruritus Musc Musc: Denies arthralgias, back pain or muscle weakness Skin Skin/Breast: Denies alopecia, change in hair, dry skin, breast mass, breast pain, breast skin changes or nipple discharge Neuro Neuro: Reports system reviewed and no additional complaints, except as documented Psych Psych: Reports system reviewed and no additional complaints, except as documented; Denies change in libido or difficulty concentrating Endo Endo: Denies cold intolerance, excessive sweating, heat intolerance or polydipsia Manuel/Lymph Hematologic/Lymphatic: Denies easy bleeding, Denies easy bruising and Denies lymphadenopathy Exam Const General: cooperative, healthy appearing, comfortable, no acute distress and well developed Orientation: alert HENMT Head: normal to inspection and normocephalic Ears: hearing grossly normal bilaterally and external ears normal Nose: external nose normal and nares normal Face and sinus: normal facial exam Neck Neck: normal visual inspection and no lymphadenopathy Thyroid: thyroid normal Chest Chest palpation & inspection: normal inspection of the chest Resp Effort & Inspection: normal respiratory effort Musc Other: gross motor intact no deficits, full bilateral strength Skin General: no rashes or lesions noted Neuro General: patient alert, patient awake, moves all extremities and no focal motor deficits Motor: muscle tone normal throughout Extrem General: normal to inspection and no pedal edema Psych Appearance: grossly normal Mental Status: mental status grossly normal Affect: normal affect Speech and Movement: speech and movement normal Results POC Urinalysis Dip (Clinic) Office Urine Color YELLOW Last Edit by [facility] on 11/26/21 10:09 Office Urine Clarity Clear Last Edit by [facility] on 11/26/21 10:09 Office Urine Glucose Last Edit by [facility] on 11/26/21 10:09 Office Urine Ketones Last Edit by [facility] on 11/26/21 10:09 Off Ur Spec Lagrange 1.015 Last Edit by [facility] on 11/26/21 10:09 Office Urine pH Last Edit by [facility] on 11/26/21 10:09 Office Urine Bilirubin Negative Last Edit by [facility] on 11/26/21 10:09 Office Urine Urobilinogen Last Edit by [facility] on 11/26/21 10:09 Office Urine Blood Large Last Edit by [facility] on 11/26/21 10:09 Office Urine Blood Hemolyzed Last Edit by [facility] on 11/26/21 10:09 Office Urine Protein Negative Last Edit by [facility] on 11/26/21 10:09 Office Urine Nitrate Positive Last Edit by [facility] on 11/26/21 10:09 Off Ur Leukocytes Positive Last Edit by [facility] on 11/26/21 10:09 Coding Level of Care Code Off vis,est,level 4 Diagnoses Postmenopausal bleeding N95.0 Endometrial polyp N84.0 Assessment and Plan Assessment and Plan (1) Postmenopausal bleeding: Status: Acute Comment: US, EMB. (2) Endometrial polyp: Status: Acute Comment: Plan D&C hysteroscopy at time of ES WL procedure with Dr. Graham Plan: After discussing the patient's diagnosis and treatment plan options, patient wishes to proceed with surgical management. I have discussed with the patient the risks, benefits, and alternatives of the procedure which include but are not limited to risks of anesthesia, bleeding, infection, possible damage to bowel, bladder, or surrounding vasculature which could lead to additional surgery to evaluate any complications. Patient agrees to procedure and wishes to proceed. ACOG/uptodate references given for additional information regarding procedure.
--- NOTE | 2021-12-25 06:18 | EKG12_ITS ---
Test Reason : PRE OP Blood Pressure : / mmHG Vent. Rate : 062 BPM Atrial Rate : 062 BPM P-R Int : 164 ms QRS Dur : 092 ms QT Int : 400 ms P-R-T Axes : 043 021 069 degrees QTc Int : 406 ms Normal sinus rhythm Nonspecific T wave abnormality Abnormal ECG No previous ECGs available Confirmed by WILBUR PINA, DINAH ([id number]), metropolitan editor JACKELIN CHRISTENSEN ([id number]) on 12/27/2021 1:37:36 PM Referred By: Uma Graham Confirmed By:MANI BOWLES MD
[2021-12-25 07:04] VITALS: BP 150/88; PULSE 69; RESP 16; TEMP 36.9; O2SAT 99; BMI 32.2
[2021-12-25] MEDS: Lactated Ringers 1,000 ML 15 ML IV (07:09)
[2021-12-25 07:17] LABS: Absolute Lymphocyte Count 3.18 X10^3/uL (0.83-4.51); Absolute Neutrophil Count 3.9 X10^3/uL (2.0-7.7); Basophil# 0.03 X10^3/uL; Basophil% 0.4 % (0-1); Eosinophil# 0.23 X10^3/uL; Eosinophils% 2.9 % (0-5); Hematocrit 39.5 % (37-47); Hemoglobin 13.3 g/dL (12.0-15.0); Lymphocyte # 3.18 X10^3/ul (0.83-4.51); Lymphocyte % 40.1 % (19-41); Mean Corp Hgb Conc 33.7 g/dL (32-36); Mean Corpuscular Hgb 29.5 pg (27.0-32.0); Mean Corpuscular Volume 87.6 fL (81-99); Mean Platelet Vol. 9.6 fl (6.2-12.0); Monocyte# 0.56 X10^3/uL; Monocyte% 7.1 % (0-10); NRBC Flagged by Analyzer 0 % (0-5); Neutrophil # 3.92 X10^3/uL (2.7-7.7); Neutrophil % 49.2 % (47-70); Platelet Count 224 K/mm3 (150-450); RBC Distribution Width CV 12.5 % (11.6-14.6); RBC Distribution Width SD 39.8 fl (35.1-43.9); Red Blood Count 4.51 M/mm3 (4.2-5.4); White Blood Count 7.9 K/mm3 (4.4-11.0)
--- NOTE | 2021-12-25 07:23 | OP.PCM_ITS ---
Problems Associated Problem List Diagnoses (1) Endometrial polyp: (2) Postmenopausal bleeding: Report of Operation Pre-Operative Diagnosis: see problem list Post-Operative Diagnosis: same Surgery/Procedure Performed:: D&C hysteroscopy polypectomy using symphion ground transportation operator: None Type of Anesthesia: Local MAC Special Medications: none Specimen's removed: EMC, polyp Drains: none Estimated Blood Loss (mL): 50 Fluids Replaced: crystalloid Description of Procedure: Patient was prepped and draped in a normal sterile fashion under MAC anesthesia. A weighted speculum was placed in the vagina and the anterior lip of the cervix was grasped with a single-tooth tenaculum. A paracervical block was placed with 1% lidocaine. Cervix was progressively dilated to allow passage of a 5 mm hysteroscope. The lining was fully visualized and noted to haveposterior upper polyp . Uterine sounded to 8 cm. Using the symphion device, the polyp was progressively removed without complications. Direct visual curettage was performed using the device , and all specimens were sent to pathology. All instruments were removed from the vagina and excellent hemostasis was noted. Patient was awoken and taken to recovery in stable condition. Grafts/Implants Used: none Complications none Admit VTE Documentation VTE Present on Admission: No VTE Mechan Device Prophylaxis: SCD's Multi Select Codes Urinary/Genital Urinary/Genital CPT Codes: 40571 Hysteroscopy,EMC, Polypectomy
--- NOTE | 2021-12-25 07:23 | DCINST_ITS ---
Discharge Instructions Procedure D&C Diet Discharge Diet: No restrictions Activity Discharge Activity: Return to Normal Activity, May Shower and May Take a Tub Bath (after 1 week) May resume sexual activity in: 1-2 weeks Weight Bearing Status: Weight bearing as tolerated Lifting Restrictions: none Dressing / Incision Call your doctor if you observe: Fever of 101 or Higher, Using more than 1 pad per hour, Shortness of breath and Uncontrolled pain Follow Up Care Please Follow Up With: Moon Slater MD When: Call [phone] to schedule appointment. Test Results: Test results from this visit will be discussed in further detail at your follow-up appointment, if applicable. Discharge Plan Admission Primary Reason for Your Visit: d and c Attending Provider: Uma Graham Primary Care Provider: Forest Curtis Consulting Providers: Moon Slater Discharge Orders/Prescriptions Prescriptions: No Action NK RF: 0 Other Ambulatory Orders: Comprehensive Metabolic Profil (Routine) Timeframe: 20211225 Facility: [facility] - Location: Laboratory Ordered By: Dr. Moon Slater Referrals / Follow Up: Forest Curtis MD [Primary Care Provider] - Disposition Disposition (needs filled in before D/C Order can be placed): Home, Self Care
--- NOTE | 2021-12-25 07:30 | EMB_PTH ---
PATIENT: GENNY NEWMAN LOC: [facility] [place] U#:[id number] AGE/SX: 56/F ROOM: RE12/25/[address]: Dr. Uma Graham MD : 1965 BED: DIS: 12/25/2021 SPEC #: [id number] RECD: 12/25/21 11:14 STATUS: ELIDA RESolo #: [id number] ARVIND: 12/25/21 07:[address]: Moon Slater DEPT: SURGICAL PATHOLOGY RECD BY: Lorenza Barreto ENTERED: 12/25/21 13:55 SP TYPE: ENDOM BX/C OTHR DR: MD Dr. Forest Tirado MD Dr. Sharon Marcanthony, MD Tissues: Endometrium, NOS Procedures: Surgery Specimen Level IV Comments: @ Ordering doctor for SUIV edited from to @ by GLADYS at 12/25/21 1533 @ Submitting doctor edited from to @ by RGOOD at 12/25/21 1533 HEADER OPERATION: Hysteroscopy, Symphion D & C PRE-OP DIAGNOSIS: Postmenopausal bleeding, endometrial polyp TISSUE SUBMITTED: Endometrial polyp MICROSCOPIC DIAGNOSIS Endometrial polyp, biopsy: Polypoid fragments of mildly disordered proliferative endometrium. Strips of benign squamous mucosa, endocervix and myometrial tissue. AM:valentin 12/26/2021 MICROSCOPIC DESCRIPTION Slides are reviewed. GROSS DESCRIPTION Received in fixative is one container labeled with the patient's name and designated endometrial polyp. The specimen consists of multiple irregular fragments of holder tissue that in aggregate measure 2.2 x 2 x 0.2 cm. The specimen is totally submitted in one cassette. / AM:valentin 12/25/2021 :5 [facility]: [id number]
[2021-12-25] MEDS: Cefazolin 2 GM in 0.9% Normal Saline 100 ML IV (07:33)
--- NOTE | 2021-12-25 07:55 | PCM.DC ---
Discharge Instructions Diet Discharge Diet: No restrictions Activity May resume sexual activity in: 1-2 weeks Weight Bearing Status: Weight bearing as tolerated Dressing / Incision Call your doctor if you observe: Fever of 101 or Higher, Using more than 1 pad per hour, Shortness of breath and Uncontrolled pain Follow Up Care Please Follow Up With: Moon Slater MD Test Results: Test results from this visit will be discussed in further detail at your follow-up appointment, if applicable. Discharge Plan Admission Primary Reason for Your Visit: d and c Attending Provider: Uma Graham Primary Care Provider: Forest Curtis Consulting Providers: Moon Slater Discharge Orders/Prescriptions Prescriptions: New oxycodone-acetaminophen [oxycodone-acetaminophen] 1 TABLET tablet 2 tab PO Q8H PRN PRN (Reason: Pain) 7 Days Qty: 10 RF: 0 cephalexin [cephalexin] 500 MG capsule 500 mg PO Q12 3 Days Qty: 6 RF: 0 Other Ambulatory Orders: Comprehensive Metabolic Profil (Routine) Timeframe: 20211225 Facility: [facility] - Location: Laboratory Ordered By: Dr. Moon Slater Referrals / Follow Up: Forest Curtis MD [Primary Care Provider] - Disposition Disposition (needs filled in before D/C Order can be placed): Home, Self Care
--- NOTE | 2021-12-25 07:59 | OP.PCM_ITS ---
Problems Associated Problem List Diagnoses (1) Renal calculus: Report of Operation Date of Procedure: 12/25/21 Pre-Operative Diagnosis: Left renal calculus Post-Operative Diagnosis: Same Surgery/Procedure Performed:: Left renal extracorporal shockwave lithotripsy Surgeon: Uma Graham Type of Anesthesia: General Description of Procedure: The patient is a 56-year-old female with left renal calculus visible on KUB who presents for definitive management with extracorporal shockwave lithotripsy. Informed consent was obtained. The pat ient was taken to the operating room and placed on the lithotripter table. Anesthesia monitored the head, neck, airway, IV access and vital signs throughout the case. Once anesthesia was appropriate ministered the patient was positioned into dorsal lithotomy and was prepped and draped in usual sterile fashion. Dr. Slater performed her portion of the procedure and then the case was turned over to ne. The patient was then placed in supine position and aligned with a lithotripter. The stone was visualized and 3000 shocks were applied. The stone appeared to be well fragmented at the conclusion of the case. There were no complications during the procedure. The patient was taken to the recovery room in good condition. Complications none Admit VTE Documentation VTE Present on Admission: Yes VTE Mechan Device Prophylaxis: SCD's VTE Pharm Prophylaxis ordered?: No Reason prophylaxis not ordered:: Treatment Not Indicated
[2021-12-25 08:58] VITALS: BP 150/88; BP 183/96; PULSE 63; RESP 16; TEMP 36.1; O2SAT 98
[2021-12-25 09:00] VITALS: BP 150/88; BP 183/90; PULSE 63; RESP 16; O2SAT 98
[2021-12-25 09:15] VITALS: BP 150/88; BP 175/90; PULSE 63; RESP 16; O2SAT 100
[2021-12-25 09:26] VITALS: BP 129/82; BP 150/88; PULSE 58; RESP 16; TEMP 36; O2SAT 100
[2021-12-25 10:26] VITALS: BP 131/84; BP 150/88; PULSE 66; RESP 16; TEMP 36.5; O2SAT 97
== END 2021-12-25 23:59 | disposition home or self-care (01) ==
LOC: SDC 06:09 → AC 06:12
PROVIDERS: Obstetrics & Gynecology; PCP Family Medicine; Referring Provider Urology; Visit Provider Urology
PROC: 0UB98ZZ Excision of Uterus, Via Natural or Artificial Opening Endoscopic (ICD-10-PCS; CPT 58558; principal; 2021-12-25 07:15)
PROC: (CPT 50590; 2021-12-25 07:15)
DX: N84.0 Polyp of corpus uteri (principal); E66.9 Obesity, unspecified; N95.0 Postmenopausal bleeding; N20.0 Calculus of kidney; Z68.31 Body mass index [BMI] 31.0-31.9, adult; Z86.14 Personal history of Methicillin resistant Staphylococcus aureus infection; K59.00 Constipation, unspecified; N39.0 Urinary tract infection, site not specified; N93.9 Abnormal uterine and vaginal bleeding, unspecified
CPT/HCPCS: 58558; 50590; 00873; 85025; 86850; 86900; 86901; 88305; 93005; J7120

== ENCOUNTER 2022-01-10 11:52 | Outpatient (CLI) | payer OTHER, SELFPAY ==
--- NOTE | 2022-01-10 11:53 | RAD_ITS ---
EXAM: XR ABDOMEN, 1 VIEW CLINICAL INDICATION: KIDNEY CALC TECHNIQUE: Frontal supine view of the abdomen/pelvis. This report was created using [employer] report generation technology. COMPARISON: None. FINDINGS: LOWER THORAX: No acute pathology. GASTROINTESTINAL TRACT: Unremarkable. Non-obstructive. No bowel or stomach distention. ORGANS: 3 mm punctate calcification overlying the region of the left kidney. No organomegaly. BONES/JOINTS: No acute pathology. SOFT TISSUES: No acute pathology. RAD/Abdomen Single View IMPRESSION: 3 mm punctate calcification overlying the region of the left kidney. Electronically Signed: Froy Reza MD at 17:32 EDT ,
== END 2022-01-10 23:59 | disposition home or self-care (01) ==
LOC: MTRAD 11:52
PROVIDERS: PCP Family Medicine; Referring Provider Urology; Visit Provider Urology
DX: N20.0 Calculus of kidney (principal)
CPT/HCPCS: 74018

== ENCOUNTER 2022-04-01 07:26 | Emergency (ER) | payer OTHER, SELFPAY ==
[2022-04-01 07:27] VITALS: BP 121/76; PULSE 70; RESP 14; TEMP 36.1; O2SAT 98; BMI 32.3
--- NOTE | 2022-04-01 07:43 | CT_ITS ---
STUDY: CT ABDOMEN AND PELVIS WITHOUT CONTRAST REASON FOR EXAM: Female, 57 years old. Kidney Stone RADIATION DOSAGE (If Supplied By Facility): CTDIvol = ( 9.68 ) mGy, DLP = ( 471.53 ) mGycm TECHNIQUE: Transaxial images were obtained from the dome of the diaphragm to the symphysis pubis without oral contrast, and without intravenous contrast. Sagittal and coronal images were reconstructed. Individualized dose optimization techniques were used for this CT. COMPARISON: 11/24/2021 FINDINGS: The visualized lung bases are unremarkable. The visualized portions of the heart are within normal limits. There is decreased attenuation of the liver consistent with steatosis. There is a solitary gallstone. Normal spleen. Normal pancreas. Normal bilateral adrenal glands. Normal right kidney. 3 mm obstructing stone at the distal left ureter with mild ureteral dilatation and hydronephrosis. Normal visualized stomach. Normal small intestine. Normal colon. The appendix is visualized and appears normal. Normal abdominal aorta. Normal inferior vena cava. Normal retroperitoneum. Normal urinary bladder. Normal abdominal wall. Bilateral pars defects of the L5 vertebra consistent with L5 spondylolysis. 5 mm of anterolisthesis of L5 on S1 consistent with grade 1 spondylolisthesis with secondary degenerative disc disease. CT/Abdomen/Pelvis without Cont IMPRESSION: 1. 3 mm obstructing stone of the distal left ureter with mild ureteral dilatation hydronephrosis. 2. Fatty infiltration of the liver. 3. Cholelithiasis. 4. L5 spondylolysis with grade 1 spondylolisthesis of L5 on S1 with secondary degenerative disc disease. Electronically Signed: Gerardo King MD at 8:56 EDT ,
--- NOTE | 2022-04-01 07:44 | EDS_ITS ---
HPI History of Present Illness Chief Complaint: Flank Pain Informant: patient and spouse/S.O. Narrative Narrative: 57-year-old female with a previous medical history including kidney stones presents with sudden onset of left flank pain. She sees Dr. Graham for osvaldoogy. She states this feels like prior kidney stones. Symptoms began abruptly this morning. She notes associated nausea and vomiting. She denies any fevers. PFSH PFSH Medical History Cardiology follow-up encounter Endometrial polyp History of stress test Hx of kidney disease MRSA infection Obesity Post-menopausal Postmenopausal bleeding Renal calculus Wears contact lenses Home Medications ketorolac 10 mg tablet 10 mg PO Q8H PRN pain 5 days #15 tabs 04/01/22 [Rx Last Taken Unknown] ondansetron 4 mg disintegrating tablet 4 mg PO Q6H PRN PRN Nausea #15 tabs 04/01/22 [Rx Last Taken Unknown] oxycodone-acetaminophen 5 mg-325 mg tablet 1 tab PO Q6H PRN PRN Pain 3 days #12 TABLETS 04/01/22 [Rx Last Taken Unknown] Allergy/AdvReac Type Severity Reaction Status Date / Time No Known Allergies Allergy Verified 04/01/22 07:27 Family History Father Heart disease Aunt Breast cancer Mother Parkinson disease Surgical History H/O dilation and curettage History of History of laparoscopy Social History household members: spouse housing: house number of children: 3 current occupational status: employed 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 pets and animals: Yes leisure activities: other history of recent travel: Yes ([place], [place], [place]) sexually active: Yes Smoking Status: Never smoker alcohol intake: current well-balanced diet: daily or most days caffeine: No eating out: 1-3 times/week during the past year weight has: remained stable what type of physical activity do you participate in: walking frequency: 5-6 times per week duration: 15-30 minutes/day seatbelt use: always do you feel safe at home: Yes 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 Constitutional Constitutional ED: Denies chills or weight loss Eyes Eyes: Denies change in vision or diplopia ENT ENT ED: Denies ear pain, rhinorrhea or sore throat Cardiovascular Cardiovascular: Denies chest pain, orthopnea, palpitations or racing heartbeat Respiratory/Chest Respiratory/Chest: Denies cough, dyspnea or orthopnea Gastrointestinal Gastrointestinal: Reports nausea and vomiting; Denies abdominal pain or diarrhea Genitourinary Genitourinary ED: Denies dysuria, hematuria or urinary frequency Musculoskeletal Musculoskeletal: Reports back pain; Denies arthralgias or myalgias Integumentary Denies abscess or rash Neurologic Neurologic: Denies headache(s) or weakness Psychiatric Psychiatric: Denies anxiety, depression, suicidal ideation or suicidal thoughts Endocrine Endocrinology: Denies polydipsia, polyphagia or polyuria Allergic/Immunologic Allergic/Immunologic ED: Denies mouth swelling, tongue swelling or urticaria EXAM Physical Exam Narrative Exam Narrative: Patient appears in pain unable to sit still holding the left flank Const Vital Signs: 04/01/22 07:27 Temperature 97 F L Temperature Source Temporal Pulse Rate 70 Respiratory Rate 14 Blood Pressure 121/76 H Blood Pressure Mean 91 Pulse Ox 98 Oxygen Delivery Method Room Air Positive well nourished and well developed General Appearance ED: well developed HEENT Reports normocephalic, head/scalp atraumatic and moist mucous membranes Eyes PERRL and EOMs intact bilaterally Neck no lymphadenopathy, supple and no JVD Resp normal respiratory effort and clear to auscultation bilaterally Cardio regular rate, regular rhythm and no murmurs GI normal to inspection, nondistended, normoactive bowel sounds and non-tender Palpation: soft Back/Spine no CVA tenderness and normal ROM Extremity normal to inspection General Extremety ED: Negative for edema General Extremity: Negative for edema Neuro oriented x3 and CN's II-XII intact bilaterally Sensorium / Orientation: alert Motor Exam: strength 5/5 throughout Psych mental status grossly normal Mood & Affect: Negative for depressed or tearful Skin no rashes or lesions noted and no wounds MDM MDM MDM Narrative Medical decision making narrative: Basic blood work showed a white count of 11.5 with a normal creatinine. Urinalysis with no infection. CT of the abdomen pelvis demonstrates a distal 3 mm ureteral stone. Patient received morphine Toradol and Zofran. She will be discharged home with Percocet and Toradol and Zofran. Following up with her urologist return if worsening or concerns Lab Data Attestation: I reviewed the patient's lab results. Labs: Laboratory Results - last 24 hr 04/01/22 04/01/22 04/01/22 08:00 08:00 09:40 WBC 11.5 H RBC 4.57 Hgb 13.0 Hct 40.1 MCV 87.7 MCH 28.4 MCHC 32.4 RDW Std Deviation 40.8 RDW Coeff of Kit 12.6 Plt Count 222 MPV 9.9 Immature Gran % (Auto) 0.700 Neut % (Auto) 63.1 Lymph % (Auto) 29.1 Blount % (Auto) 5.0 Eos % (Auto) 1.7 Baso % (Auto) 0.4 Absolute Neuts (auto) 7.2 Absolute Lymphs (auto) 3.34 Nucleated RBC % 0 Sodium 138 Potassium 3.5 Chloride 105 Carbon Dioxide 25.0 Anion Gap 8 BUN 15 Creatinine 0.98 Estim Creat Clear Calc 71.14 Est GFR (MDRD) Af Amer 76 Est GFR (MDRD) Non-Af 63 BUN/Creatinine Ratio 15.4 Glucose 174 H Calcium 9.4 Urine Color Yellow Urine Clarity Sl. Cloudy Urine pH 7.0 Ur Specific Garrison 1.010 Urine Protein Negative Urine Glucose (UA) 100 H Urine Ketones Negative Urine Occult Blood Negative Urine Nitrite Negative Urine Bilirubin Negative Urine Urobilinogen Normal Ur Leukocyte Esterase Negative Urine RBC 0 SEEN Urine WBC 0 SEEN Ur Squamous Epith Cells 0-5 SEEN Urine Bacteria 0 SEEN Urine Mucus 0 SEEN Radiography Diagnostic Testing: Clinical Impression(s) from Imaging Studies Abdomen/Pelvis CT 04/01/22 07:43 IMPRESSION: 1. 3 mm obstructing stone of the distal left ureter with mild ureteral dilatation hydronephrosis. 2. Fatty infiltration of the liver. 3. Cholelithiasis. 4. L5 spondylolysis with grade 1 spondylolisthesis of L5 on S1 with secondary degenerative disc disease. Electronically Signed: Gerardo King MD at 8:56 EDT , Discharge Plan Triage Chief Complaint: Flank Pain ED Provider: Hari Palencia Dx/Rx/DC Orders Clinical Impression: Ureterolithiasis, Renal colic on left side Instructions: ED Kidney Stone w/ Colic Prescriptions: New ketorolac 10 mg tablet 10 mg PO Q8H PRN (Reason: pain) 5 Days Qty: 15 0RF oxycodone-acetaminophen [oxycodone-acetaminophen] 5-325 mg tablet 1 tab PO Q6H PRN PRN (Reason: Pain) 3 Days Qty: 12 0RF ondansetron [ondansetron] 4 mg tablet,disintegrating 4 mg PO Q6H PRN PRN (Reason: Nausea) Qty: 15 0RF Primary Care Provider: Forest Curtis Referrals: Uma Graham MD [STAFF PHYSICIAN] - 3-5 Days if not improving Forest Curtis MD [Primary Care Provider] - As Needed Disposition Disposition: Home, Self Care
[2022-04-01] MEDS: Ondansetron 4 MG/2 ML Vial IV (08:01)
[2022-04-01] MEDS: Morphine 4 MG/ML Syringe IV ×2 (08:01→08:26)
[2022-04-01] MEDS: Ketorolac 30 MG/ML Syringe IV (08:01)
[2022-04-01] MEDS: 0.9% Normal Saline 1,000 ML 250 ML IV (08:01)
[2022-04-01 08:14] LABS: Absolute Lymphocyte Count 3.34 X10^3/uL (0.83-4.51); Absolute Neutrophil Count 7.2 X10^3/uL (2.0-7.7); Basophil# 0.05 X10^3/uL; Basophil% 0.4 % (0-1); Eosinophil# 0.19 X10^3/uL; Eosinophils% 1.7 % (0-5); Hematocrit 40.1 % (37-47); Lymphocyte # 3.34 X10^3/ul (0.83-4.51); Lymphocyte % 29.1 % (19-41); Mean Corp Hgb Conc 32.4 g/dL (32-36); Mean Corpuscular Hgb 28.4 pg (27.0-32.0); Mean Corpuscular Volume 87.7 fL (81-99); Mean Platelet Vol. 9.9 fl (6.2-12.0); Monocyte# 0.57 X10^3/uL; NRBC Flagged by Analyzer 0 % (0-5); Neutrophil # 7.24 X10^3/uL (2.7-7.7); Neutrophil % 63.1 % (47-70); Platelet Count 222 K/mm3 (150-450); RBC Distribution Width CV 12.6 % (11.6-14.6); RBC Distribution Width SD 40.8 fl (35.1-43.9); Red Blood Count 4.57 M/mm3 (4.2-5.4); White Blood Count 11.5 K/mm3 (4.4-11.0)
[2022-04-01 08:30] LABS: Anion Gap 8 (5-15); BUN 15 mg/dL (7-18); BUN/Creat Ratio 15.4 RATIO (10-20); Calcium,Total 9.4 mg/dL (8.5-10.1); Chloride 105 mmol/L (98-107); Creatinine, Serum 0.98 mg/dL (0.55-1.02); EST Glomerular Filtration Rate 63 mL/min (>60); Est Glom Filt Rate - Afr Amer 76 mL/min (>60); Estimated Creatinine Clearance 71.14 ml/min; Glucose 174 mg/dL (74-106); Potassium 3.5 mmol/L (3.5-5.1); Sodium Level 138 mmol/L (136-145)
[2022-04-01 09:50] LABS: Bacteria 0 SEEN /hpf (None Seen); Mucous, Urine 0 SEEN /hpf (<or=2+); Red Blood Cells-Urine 0 SEEN /hpf (0-5); White Blood Cells 0 SEEN /hpf (0-5)
[2022-04-01 09:53] LABS: Color, Urine Yellow (Yellow); Glucose, Dipstick 100 mg/dl (Normal); Ketone-Dipstick Negative (Negative); Leukocyte Esterase-Dipstick Negative /ul (Negative); Nitrite-Dipstick Negative (Negative); Occult Blood-Urine Negative /ul (Negative); Protein-Dipstick Negative (Negative); Urine Bilirubin Dipstick Negative (Negative); Urine Clarity Sl. Cloudy (Clear); Urine Urobilinogen Normal (Normal)
[2022-04-01 10:02] LABS: Squamous Epithelial Cells - UA 0-5 SEEN /hpf (5-10)
[2022-04-01] MEDS: oxyCODONE 5 MG Tablet PO (10:37)
[2022-04-01 10:42] VITALS: BP 145/74; PULSE 87; RESP 16; O2SAT 99
== END 2022-04-01 11:00 | disposition home or self-care (01) ==
PROVIDERS: Emergency Provider Emergency Medicine; PCP Family Medicine; Visit Provider Emergency Medicine
DX: N20.1 Calculus of ureter (principal); Z87.442 Personal history of urinary calculi; Z86.14 Personal history of Methicillin resistant Staphylococcus aureus infection
CPT/HCPCS: 74176; 80048; 81001; 85025; 96361; 96374; 96375; 96376; 99283; J7030; A4216; J2405

== ENCOUNTER → 2022-04-16 | Outpatient (CLI) | payer OTHER, SELFPAY ==
--- NOTE | 2022-04-16 12:27 | US_ITS ---
STUDY: RENAL ULTRASOUND - COMPLETE REASON FOR EXAM: Female, 57 years old. L URETERAL STONE WITH HYDRONEPHROSIS TECHNIQUE: Ultrasound evaluation of the kidneys was performed with real-time and static alfaro-scale imaging. COMPARISON: CT 11.24.21. FINDINGS: RIGHT KIDNEY: Normal location of the right kidney, which is normal in size. The right kidney measures 11.2 x 4.8 cm. There is a normal cortex of the right kidney. The renal cortex measures 1 cm. There is no right renal mass or cyst. There are no right renal calculi. There is no right hydronephrosis. DISTAL RIGHT URETER: There is non-visualization of the distal right ureter. There is no demonstrated right ureterovesical junction calculus. There is a visualized right ureteral jet. LEFT KIDNEY: Normal location of the left kidney, which is normal in size. The left kidney measures 10.3 x 5 cm. There is a normal cortex of the left kidney. The renal cortex measures 1.1 cm. There is a 13 x 14 mm cyst. No follow-up required. There are no left renal calculi. There is no left hydronephrosis. DISTAL LEFT URETER: There is non-visualization of the distal left ureter. There is no demonstrated left ureterovesical junction calculus. There is a visualized left ureteral jet. AORTA: There is obscuration of the abdominal aorta by overlying bowel gas I.V.C.: The IVC is obscured. BLADDER: The distended urinary bladder has a volume of 170 ml. The empty urinary bladder has a volume of 0 ml. There is a normal wall thickness of the distended urinary bladder. There is no demonstrated mass within the urinary bladder. There are no demonstrated bladder calculi. US/Kidney and Bladder IMPRESSION: No acute findings Electronically Signed: Froy Reza MD at 18:10 EDT ,
== END | disposition home or self-care (01) ==
LOC: US 12:25
PROVIDERS: PCP Family Medicine; Referring Provider Urology; Visit Provider Urology
DX: N13.2 Hydronephrosis with renal and ureteral calculous obstruction (principal)
CPT/HCPCS: 76770

== ENCOUNTER → 2022-08-29 | Outpatient (CLI) | payer OTHER, SELFPAY ==
--- NOTE | 2022-08-29 16:10 | BI_ITS ---
MAMMOGRAPHY - BILATERAL SCREENING REASON FOR EXAM: Female, 57 years old. Routine annual screening examination. PERTINENT HISTORY: Aunt with breast cancer. Remote left stereotactic breast biopsy. TECHNIQUE: Digital bilateral breast louisa (3D mammographic acquisition) in the CC and MLO projections. 2-D mediolateral oblique (MLO) and craniocaudad (CC) views of both breasts were obtained. CAD: Full Field Digital Mammography with Computer Added Detection was performed. COMPARISON: Comparison is made with prior study 07/09/2021 and 11/26/1999 FINDINGS: Breast Composition: The breasts are heterogeneously dense, which may obscure small masses. There are no dominant masses or suspicious calcifications. A tissue clip marker is once again seen in the deep midportion of the left breast. Stable small benign-appearing bilateral axillary lymph nodes. No other significant abnormalities are identified. There has been no significant change since the prior study. BI/SCRN MAMM (CAD)W/LOUISA BILAT IMPRESSION: Stable bilateral screening mammogram. Yearly follow-up mammogram recommended. (A) ASSESSMENT CATEGORY: BIRADS Category 2: Benign. A letter regarding these results will be sent to the patient by the facility within 30 days. Approximately 10% of breast cancers are not detected by mammography. A normal mammogram should not delay biopsy of a clinically suspicious abnormality. [id number] Electronically Signed: Damian Meraz MD at 8:18 EST ,
== END | disposition home or self-care (01) ==
LOC: OPBI 16:08
PROVIDERS: PCP Family Medicine; Visit Provider Family Medicine
DX: Z12.31 Encounter for screening mammogram for malignant neoplasm of breast (principal); Z80.3 Family history of malignant neoplasm of breast
CPT/HCPCS: 77063; 77067

== ENCOUNTER → 2023-04-09 | Outpatient (CLI) | payer OTHER, SELFPAY ==
--- NOTE | 2023-04-09 12:45 | RAD_ITS ---
INDICATION: KIDNEY STONE EXAMINATION/TECHNIQUE: X-RAY - XR Abdomen 1 View COMPARISON: None FINDINGS: BOWEL GAS PATTERN: Non-obstructive. No bowel or stomach distention. FREE AIR: Not assessed on a single supine view. ORGANOMEGALY: Not seen. CALCIFICATIONS: No abnormal calcifications observed. LOWER CHEST: No acute pathology. BONES AND SOFT TISSUES: No acute pathology. RAD/Abdomen Single View IMPRESSION: No abnormal calcifications observed. Electronically Signed: Parker Lr MD at 18:28 EDT ,
== END | disposition home or self-care (01) ==
LOC: MTRAD 12:41
PROVIDERS: PCP Family Medicine; Referring Provider Urology; Visit Provider Urology
DX: N20.0 Calculus of kidney (principal)
CPT/HCPCS: 74018

== ENCOUNTER → 2023-07-24 | Outpatient (CLI) | payer OTHER, SELFPAY ==
--- NOTE | 2023-07-24 07:31 | EKG12_ITS ---
Test Reason : ROUTINE Blood Pressure : / mmHG Vent. Rate : 059 BPM Atrial Rate : 059 BPM P-R Int : 156 ms QRS Dur : 086 ms QT Int : 422 ms P-R-T Axes : 054 036 057 degrees QTc Int : 417 ms Sinus bradycardia with occasional Premature ventricular complexes Otherwise normal ECG Confirmed by RICARDO PINA, GÓMEZ ([id number]), dictionary editor ALEX KAUR ([id number]) on 07/28/2023 2:04:38 PM Referred By: Moon Slater Confirmed By:GÓMEZ SILVA MD
[2023-07-24 08:28] LABS: Absolute Lymphocyte Count 2.39 X10^3/uL (0.83-4.51); Absolute Neutrophil Count 4.4 X10^3/uL (2.0-7.7); Basophil# 0.04 X10^3/uL; Basophil% 0.5 % (0-1); Eosinophil# 0.13 X10^3/uL; Eosinophils% 1.7 % (0-5); Hematocrit 40.3 % (37-47); Hemoglobin 12.8 g/dL (12.0-15.0); Lymphocyte # 2.39 X10^3/ul (0.83-4.51); Lymphocyte % 31.9 % (19-41); Mean Corp Hgb Conc 31.8 g/dL (32-36); Mean Corpuscular Hgb 28.7 pg (27.0-32.0); Mean Corpuscular Volume 90.4 fL (81-99); Mean Platelet Vol. 9.4 fl (6.2-12.0); Monocyte% 6.7 % (0-10); NRBC Flagged by Analyzer 0 % (0-5); Neutrophil # 4.43 X10^3/uL (2.7-7.7); Neutrophil % 59.1 % (47-70); Platelet Count 220 K/mm3 (150-450); RBC Distribution Width CV 12.9 % (11.6-14.6); RBC Distribution Width SD 42.6 fl (35.1-43.9); Red Blood Count 4.46 M/mm3 (4.2-5.4); White Blood Count 7.5 K/mm3 (4.4-11.0)
[2023-07-24 09:25] LABS: AST(SGOT) 15 U/L (15-37); Alanine Aminotransfer ALT/SGPT 39 U/L (13-56); Albumin, Serum 3.8 g/dL (3.2-5.0); Alkaline Phosphatase 91 U/L (45-117); Anion Gap 3 (5-15); BUN 15 mg/dL (7-18); BUN/Creat Ratio 16.4 RATIO (10-20); Chloride 107 mmol/L (98-107); Cholesterol 199 mg/dL (200); Creatinine, Serum 0.92 mg/dL (0.55-1.02); EST Glomerular Filtration Rate 67 mL/min (>60); Est Glom Filt Rate - Afr Amer 81 mL/min (>60); Globulin 3.7 g/dL (2.2-4.2); Glucose 110 mg/dL (74-106); High Density Lipoprotein 53 mg/dL; Potassium 3.9 mmol/L (3.5-5.1); Protein, Total 7.5 g/dL (6.4-8.2); Sodium Level 140 mmol/L (136-145); Thyroid Stim Hormone (TSH) 1.05 uIU/mL (0.358-3.74); Triglycerides 125 mg/dL; Very Low Density Lipoprotein 25 mg/dL (5-40)
[2023-07-24 09:51] LABS: Hemoglobin A1c 5.8 % (3.8-5.6)
[2023-07-26 15:08] LABS: Vitamin D 1,25-Dihydroxy 63.6 pg/mL (24.8-81.5)
== END | disposition home or self-care (01) ==
PROVIDERS: PCP Family Medicine; Referring Provider Obstetrics & Gynecology; Visit Provider Obstetrics & Gynecology
DX: E66.8 Other obesity (principal); Z68.31 Body mass index [BMI] 31.0-31.9, adult
CPT/HCPCS: 36415; 80053; 80061; 82652; 83036; 84443; 85025; 93005

== ENCOUNTER → 2023-08-28 | Outpatient (CLI) | payer OTHER, SELFPAY ==
[2023-08-28 17:48] LABS: Mucous, Urine 0 SEEN /hpf (<or=2+)
[2023-08-28 18:27] LABS: Color, Urine Yellow (Yellow); Glucose, Dipstick Normal (Normal); Ketone-Dipstick 5 mg/dl (Negative); Leukocyte Esterase-Dipstick 500 /ul (Negative); Nitrite-Dipstick Positive (Negative); Occult Blood-Urine 250 /ul (Negative); Protein-Dipstick 30 mg/dl (Negative); Specific Gravity, Urine 1.025 (1.002-1.030); Urine Bilirubin Dipstick Negative (Negative); Urine Clarity Cloudy (Clear); Urine Urobilinogen Normal (Normal)
[2023-08-28 18:56] LABS: Bacteria 2+ /hpf (None Seen); Red Blood Cells-Urine > 100 SEEN /hpf (0-5); Squamous Epithelial Cells - UA 5-10 SEEN /hpf (5-10); White Blood Cells >100 SEEN /hpf (0-5)
== END | disposition home or self-care (01) ==
PROVIDERS: PCP Family Medicine; Visit Provider Physician Assistant Surgical
DX: R30.0 Dysuria (principal)
CPT/HCPCS: 81001; 87086; 87088; 87186

== ENCOUNTER → 2023-09-11 | Outpatient (CLI) | payer OTHER, SELFPAY ==
--- NOTE | 2023-09-11 16:08 | RAD_ITS ---
STUDY: X-RAY CHEST REASON FOR EXAM: Female, 58 years old. CHRONIC COUGH TECHNIQUE: Frontal and lateral views of the chest. COMPARISON: 06/29/2021. FINDINGS: The lungs are clear and expanded. There is no demonstrated pleural abnormality. Normal size heart. Normal mediastinum and renny. Normal visualized pulmonary arteries. Normal visualized aortic arch and descending thoracic aorta. Normal visualized thoracic spine. Normal visualized ribs, clavicles, and shoulders. There is no demonstrated abnormality of the visualized soft tissue structures of the upper abdomen. RAD/Chest PA and Lateral IMPRESSION: Normal x-ray examination of the chest. Electronically Signed: Kwaku Oliveira MD at 22:17 EST ,
== END | disposition home or self-care (01) ==
LOC: RAD 16:00
PROVIDERS: PCP Family Medicine; Referring Provider Otolaryngology; Visit Provider Otolaryngology
DX: R05.3 Chronic cough (principal)
CPT/HCPCS: 71046

== ENCOUNTER → 2023-12-12 | Outpatient (CLI) | payer OTHER, SELFPAY ==
--- NOTE | 2023-12-12 10:48 | BI_ITS ---
MAMMOGRAPHY - BILATERAL SCREENING REASON FOR EXAM: Female, 58 years old. Routine annual screening examination. PERTINENT HISTORY: Aunt with breast cancer. Prior left stereotactic breast biopsy. TECHNIQUE: Digital bilateral breast louisa (3D mammographic acquisition) in the CC and MLO projections. 2-D mediolateral oblique (MLO) and craniocaudad (CC) views of both breasts were obtained. CAD: Full Field Digital Mammography with Computer Added Detection was performed. COMPARISON: Comparison is made with prior study dated August 29, 2022 and July 09, 2021. FINDINGS: Breast Composition: The breasts are heterogeneously dense, which may obscure small masses. There are no dominant masses or suspicious calcifications. Stable small bilateral axillary lymph nodes. A tissue clip marker is once again seen in the deep central portion of the left breast. No other significant abnormalities are identified. There has been no significant change since the prior study. BI/SCRN MAMM (CAD)W/LOUISA BILAT IMPRESSION: Stable bilateral screening mammogram. Yearly follow-up mammogram recommended. (A) ASSESSMENT CATEGORY: BIRADS Category 2: Benign. A letter regarding these results will be sent to the patient by the facility within 30 days. Approximately 10% of breast cancers are not detected by mammography. A normal mammogram should not delay biopsy of a clinically suspicious abnormality. [id number] Electronically Signed: Damian Meraz MD at 11:36 EST ,
--- OUTSIDE RECORDS SUMMARY | 2023-12-12 11:11 | XMS RPT_ITS | CCD ---
Author Name Unknown Address [address] [place] [address] Organization [facility] Care Team Providers Care Plug Sorter Name Role Phone Unavailable Primary Care Provider Unavailabl e Allergies Allergy Classification Reported Allergen(s) Allergy Type Date of Onset Reaction(s) Facility (1 source) Penicillins Propensity to adverse reactions to drug 08-23-2020 [place], [place] Medications Current Medications Medication Drug Class(es) Dates Sig (Normalized) Sig (Original) acetaminophen 325 mg / oxyCODONE hydrochloride 5 mg oral tablet (1 source) Opioid Agonist Start: 08-23-2020 End: 08-26-2020 take 1-2 tablets by mouth every six hours as needed for pain oxyCODONE-acetaminoph en (PERCOCET) 5-325 MG per tablet Indications: Ureterolithiasis Take 1-2 tablets by mouth every 6 hours as needed for Pain for up to 3 days. WARNING: May cause drowsiness. May impair ability to operate vehicles or machinery. Do not use in combination with alcohol. 8 tablet 0 08/23/2020 08/26/2020 Active naproxen 500 mg oral tablet (1 source) Nonsteroidal Anti-inflammatory Drug Start: 08-23-2020 take 1 tablet by mouth twice daily at mealtime naproxen (NAPROSYN) 500 MG tablet Take 1 tablet by mouth 2 times daily (with meals) 14 tablet 0 08/23/2020 Active Completed/Discontinued Medications Medication Drug Class(es) Dates Sig (Normalized) Sig (Original) 1 ml ketorolac tromethamine 30 mg/ml cartridge (1 source) Nonsteroidal Anti-inflammatory Drug, Cyclooxygenase Inhibitor Start: 08-23-2020 End: 08-23-2020 ketorolac (TORADOL) injection 15 mg 1 ml morphine sulfate 4 mg/ml cartridge (1 source) Opioid Agonist Start: 08-23-2020 End: 08-23-2020 morphine injection 4 mg Problems Problem Classification Problem Date Documented Da te Episodic/Chronic Calculus of urinary tract (1 source) Ureteric stone; Translations: [Ureterolithiasis] Episodic Other lower respiratory disease (1 source) Solitary pulmonary nodule; Translations: [Pulmonary nodule, right] Episodic Results Test Name Value Interpretation Reference Range Facil ity Vital Signs Date Time Vital Sign Value Performing Clinician Faci lityves 08-23-2020 09:32-0500 BP Diastolic 82 mm[Hg] [place] 08-23-2020 09:32-0500 BP Systolic 141 mm[Hg] [place] 08-23-2020 09:32-0500 Pulse (Heart Rate) 72 /min [place] 08-23-2020 09:32-0500 Pulse Oximetry 100 % [place] 08-23-2020 09:32-0500 Respiratory Rate 16 /min [place] 08-23-2020 06:50-0500 BMI (Body Mass Index) 31.35 kg/m2 Tj Ivey [place] 08-23-2020 06:50-0500 Body Temperature 97.9 [degF] [place] 08-23-2020 06:50-0500 Body weight 68.04 kg [place] 08-23-2020 06:50-0500 Height 147.3 cm [place] Encounters Encounter Date Encounter Type Care Provider Facility Start: 08-23-2020 End: 08-23-2020 Emergency department patient visit Tj Ivey Work Phone: [facility] [place] ED Procedures Date Procedure Procedure Detail Performing Clinician Start: 08-23-2020 Urnls dip stick/tabl et rgnt auto w/o microscopy Tj Ivey Work Phone: Start: 08-23-2020 Ct abdomen & pelvis w/o contrast material Tj Ivey Work Phone: Start: 08-23-2020 Blood count complete auto&auto difrntl wbc Tj Ivey Work Phone: Start: 08-23-2020 Comprehensive metabo lic panel Tj Ivey Work Phone: Start: 08-23-2020 Gonadotropin chorion ic qualitative Tj Ivey Work Phone: Plan of Treatment Date Care Activity Detail Author Start: 06-13-2020 Influenza vaccination Flu vaccine (# 1) [place], [place] Social History Date Type Detail Facility Start: 08-23-2020 Tobacco smoking stat us [facility] Never smoker [place], [place] Start: 08-23-2020 Alcohol intake Ex-drinker (finding) [place] Sex Assigned At Not on file [place] Exposure to SARS-CoV -2 (event) Not sure [place] Reason for Referral Status Reason Specialty Diagnoses / Procedures Referred By Contact Referred To Contact [facility] Required Urology Diagnoses Ureterolithiasis Tj Ivey MD [address] [place] [address] [facility] [place] [place] [address] Scheduling Instructions [facility] [place] - [place] [place] [address] Discharge Instructions * Instructions* Tj Ivey MD - 08/23/2020 Return to Emergency Room immediately if fever greater than 100.5, vomiting and unable to keep fluids or medications down or worsening pain in any other way. * Attachments The following attachments cannot be sent through Care Everywhere. * Kidney Stone ([place]) * Pulmonary Nodules: General Info ([place]) documented in this encounter Assessments Diagnosis Ureterolithiasis Calculus of ureter Pulmonary nodule, right Solitary pulmonary nodule Summary Purpose Family History No Family History Records Found Advance Directives No Advanced Directives Records Found Additional Source Comments Reason for Visit (unrecogniz ed section and content) INFORMATION SOURCE (unrecogn ized section and content) FOR RECORDS PERTAINING TO PATIENTS WHO ARE OR HAVE BEEN ENROLLED IN A CHEMICAL DEPENDENCY/SUBSTANCEABUSE PROGRAM, SOME INFORMATION MAY BE OMITTED. This clinical summary was aggregated from multiple sources. Caution should be exercised in using it in the provision of clinical care. This summary normalizes information from multiple sources, and as a consequence, information in this document may materially change the coding, format and clinical context of patient data. In addition, data may be omitted in some cases. CLINICAL DECISIONS SHOULD BE BASED ON THE PRIMARY CLINICAL RECORDS. [facility] [employer] [facility]. provides no warranty or guarantee of the accuracy or completeness of information in this document.
== END | disposition home or self-care (01) ==
LOC: OPBI 10:46
PROVIDERS: PCP Family Medicine; Referring Provider Obstetrics & Gynecology; Visit Provider Obstetrics & Gynecology
DX: Z12.31 Encounter for screening mammogram for malignant neoplasm of breast (principal)
CPT/HCPCS: 77063; 77067

== ENCOUNTER → 2024-02-02 | Outpatient (CLI) | payer OTHER, SELFPAY ==
[2024-02-02 12:39] LABS: Absolute Lymphocyte Count 2.84 X10^3/uL (0.83-4.51); Absolute Neutrophil Count 3.9 X10^3/uL (2.0-7.7); Basophil# 0.04 X10^3/uL; Basophil% 0.5 % (0-1); Eosinophil# 0.15 X10^3/uL; Eosinophils% 1.9 % (0-5); Hemoglobin 12.5 g/dL (12.0-15.0); Lymphocyte # 2.84 X10^3/ul (0.83-4.51); Lymphocyte % 36.7 % (19-41); Mean Corp Hgb Conc 32.1 g/dL (32-36); Mean Corpuscular Hgb 28.7 pg (27.0-32.0); Mean Corpuscular Volume 89.7 fL (81-99); Mean Platelet Vol. 9.2 fl (6.2-12.0); Monocyte# 0.74 X10^3/uL; Monocyte% 9.6 % (0-10); NRBC Flagged by Analyzer 0 % (0-5); Neutrophil # 3.93 X10^3/uL (2.7-7.7); Neutrophil % 50.9 % (47-70); Platelet Count 238 K/mm3 (150-450); RBC Distribution Width SD 42.6 fl (35.1-43.9); Red Blood Count 4.35 M/mm3 (4.2-5.4); White Blood Count 7.7 K/mm3 (4.4-11.0)
[2024-02-05 11:09] LABS: HPV APTIMA, High Risk Negative (Negative)
== END | disposition home or self-care (01) ==
PROVIDERS: PCP Family Medicine; Referring Provider Obstetrics & Gynecology; Visit Provider Obstetrics & Gynecology
DX: Z12.4 Encounter for screening for malignant neoplasm of cervix (principal); Z78.0 Asymptomatic menopausal state; T14.8XXA Other injury of unspecified body region, initial encounter; X58.XXXA Exposure to other specified factors, initial encounter
CPT/HCPCS: 36415; 85025; 87624; 88175; G0145

== ENCOUNTER → 2024-08-31 | Outpatient (CLI) | payer OTHER, SELFPAY | END | disposition home or self-care (01) | LOC: LABSPEC 14:57 | PROVIDERS: PCP Family Medicine; Referring Provider Physician Assistant; Visit Provider Physician Assistant | DX: R30.0 Dysuria (principal) | CPT/HCPCS: 87086; 87088 ==

== ENCOUNTER → 2024-09-13 | Outpatient (CLI) | payer OTHER, SELFPAY ==
[2024-09-13 09:36] LABS: Cholesterol 213 mg/dL (200); High Density Lipoprotein 68 mg/dL; Triglycerides 138 mg/dL; Very Low Density Lipoprotein 28 mg/dL (5-40)
[2024-09-13 09:59] LABS: Hemoglobin A1c 5.9 % (3.8-5.6)
[2024-09-13 17:32] LABS: T4 Free Direct 0.85 ng/dL (0.76-1.46)
== END | disposition home or self-care (01) ==
LOC: LAB 08:02
PROVIDERS: PCP Family Medicine; Referring Provider Obstetrics & Gynecology; Visit Provider Obstetrics & Gynecology
DX: Z13.29 Encounter for screening for other suspected endocrine disorder (principal); I10 Essential (primary) hypertension; E66.3 Overweight; E66.89 Other obesity not elsewhere classified
CPT/HCPCS: 36415; 80061; 83036; 84439; 84443

== ENCOUNTER 2024-12-08 02:41 | Emergency (ER) | payer OTHER, SELFPAY ==
[2024-12-08 02:43] VITALS: BP 170/97; PULSE 78; RESP 18; TEMP 37; O2SAT 99; BMI 29.7
--- NOTE | 2024-12-08 02:48 | EDS_ITS ---
HPI History of Present Illness Chief Complaint: Flank Pain Informant: patient Onset/Context/Timing Onset: Hours (1.5) Context: Sudden Onset Timing: Continuous Quality: Stabbing, pressure Location: Right flank Worsened by: Nothing Relieved by: Vomiting Narrative Narrative: Patient presents with right flank pain that began approximate 1-1/2 hours prior to arrival. Patient states it began rather suddenly. Patient describes it as stabbing and pressure. Patient states it is localized to the right flank. Patient states she did feel somewhat better after vomiting. Patient states nothing else makes it better nothing makes it worse. Patient denies any fevers or chills. Patient denies any chest pain or shortness of breath. Patient denies any dysuria, frequency, or hematuria. Prior similar symptoms: Yes (With kidney stones) PFSH PFSH Medical History History of stress test Cardiology follow-up encounter Hx of kidney disease Endometrial polyp Renal calculus Wears contact lenses Post-menopausal MRSA infection Postmenopausal bleeding Obesity Home Medications ?Medication ?Instructions ?Recorded ?Last Taken ?Type naltrexone 8 mg-bupropion 90 mg 2 tab PO BID 12 weeks #336 tabs 09/06/24 Unknown Rx tablet,extended release (Contrave) ibuprofen 600 mg tablet 600 mg PO Q8H PRN PRN pain # 20 12/08/24 Unknown Rx TABLETS tamsulosin 0.4 mg capsule 0.4 mg PO DAILY #7 CAPSULES 12/08/24 Unknown Rx Allergy/AdvReac Type Severity Reaction Status Date / Time No Known Allergies Allergy Verified 12/08/24 02:48 Family History Father No problems noted. 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 pets and animals: Yes leisure activities: other history of recent travel: Yes ([place], [place], [place]) sexually active: Yes Smoking Status: Never smoker alcohol intake: current substance use type: does not use diet: low carbohydrate and other well-balanced diet: daily or most days caffeine: No what type of physical activity do you participate in: walking, aerobics and weight training frequency: other details: 10,000 steps daily seatbelt use: always do you feel safe at home: Yes 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 KAMILA ROS ED Constitutional Constitutional ED: Denies chills or fever(s) Eyes Eyes: Denies blurry vision or change in vision ENT ENT ED: Denies rhinorrhea or sore throat Cardiovascular Cardiovascular: Denies chest pain or palpitations Respiratory/Chest Respiratory/Chest: Denies cough or dyspnea Gastrointestinal Gastrointestinal: Reports abdominal pain, nausea and vomiting Genitourinary Genitourinary ED: Denies dysuria or hematuria Musculoskeletal Musculoskeletal: Reports back pain; Denies neck pain Integumentary Denies abscess or rash Neurologic Neurologic: Denies headache(s) or weakness Allergic/Immunologic Allergic/Immunologic ED: Denies mouth swelling or urticaria EXAM Physical Exam Const Vital Signs: 12/08/24 02:43 12/08/24 04:38 Temperature 98.6 F Temperature Source Oral Pulse Rate 78 62 Respiratory Rate 18 18 Blood Pressure 170/97 H 179/85 H Blood Pressure Mean 121 116 Pulse Ox 99 100 Oxygen Delivery Method Room Air Room Air Positive well nourished and well developed General Appearance ED: well developed and NAD HEENT Reports moist mucous membranes Neck supple and no JVD Resp normal respiratory effort and clear to auscultation bilaterally Cardio regular rate and regular rhythm GI non-distended Palpation: soft and tender RLQ, RUQ and suprapubic Back/Spine General Back: CVA tenderness right Neuro oriented x3, CN's II-XII intact bilaterally and no sensory deficits noted Sensorium / Orientation: alert Motor Exam: strength 5/5 throughout Psych mental status grossly normal MDM MDM MDM Narrative Medical decision making narrative: Differential diagnosis includes ureteral calculus, pyelonephritis, urinary tract infection, appendicitis, mesenteric adenitis, and gastroenteritis. CT scan of the abdomen and pelvis will be obtained to assess for ureteral calculus and pyelonephritis. CBC will be obtained to assess for leukocytosis and anemia. Basic metabolic profile will be obtained to assess for renal function and electrolyte abnormality. Urinalysis will be obtained to assess for urinary tract infection and hematuria. Lab Data Attestation: I reviewed the patient's lab results. Lab results narrative: CBC was reviewed. There is a mild leukocytosis of 12.2. The remainder is within normal limits. Basic metabolic profile was reviewed. BUN was 21 and creatinine was 1.1. GFR was 57. Glucose was slightly elevated at 164. Urinalysis showed leukocyte Estrace of 100 with 0-5 white blood cells. Urine occult blood was 150 with 5-10 red blood cells.. No bacteria seen. Labs: Laboratory Results - last 24 hr 12/08/24 12/08/24 02:55 03:08 WBC 12.2 H RBC 4.60 Hgb 13.4 Hct 40.1 MCV 87.2 MCH 29.1 MCHC 33.4 RDW Std Deviation 40.7 RDW Coeff of Kit 12.8 Plt Count 237 MPV 9.0 Immature Gran % (Auto) 0.600 Neut % (Auto) 63.2 Lymph % (Auto) 28.9 Barren % (Auto) 5.3 Eos % (Auto) 1.3 Baso % (Auto) 0.7 Absolute Neuts (auto) 7.7 Absolute Lymphs (auto) 3.52 Nucleated RBC % 0 Sodium 139 Potassium 3.9 Chloride Direct 104 Carbon Dioxide 20.2 L Anion Gap 16 H BUN 21 H Creatinine 1.1 H Estim Creat Clear Calc 46.77 Est GFR (MDRD) Non-Af 57 L BUN/Creatinine Ratio 19.0 Glucose 164 H Calcium 9.7 Urine Color Yellow Urine Clarity Clear Urine pH 6.0 Ur Specific [place] 1.020 Urine Protein 15 H Urine Glucose (UA) Normal Urine Ketones Negative Urine Occult Blood 150 H Urine Nitrite Negative Urine Bilirubin Negative Urine Urobilinogen Normal Ur Leukocyte Esterase 100 H Urine RBC 5-10 SEEN Urine WBC 0-5 SEEN Ur Squamous Epith Cells 0 SEEN Urine Bacteria 0 SEEN Urine Mucus 0 SEEN Radiography Diagnostic Testing: Clinical Impression(s) from Imaging Studies Abdomen/Pelvis CT 12/08/24 02:57 IMPRESSION: 2 mm right UVJ stone with mild right hydroureteronephrosis and mild right perinephric stranding as above. A couple of small nonobstructing right intrarenal stones. Findings at the fundus of the gallbladder as above requires follow-up ultrasound to further evaluate for possible gallbladder lesion. Bilateral ovarian/adnexal lesions as above require further characterization with pelvic ultrasound as above. Bilateral nonacute L5 spondylolysis with associated degenerative changes as above. One or more dose reduction techniques were used (e.g., Automated exposure control, adjustment of the mA and/or kV according to patient size, use of iterative reconstruction technique). Reading Location: [id number] scan of the abdomen and pelvis was obtained. There is a 2 mm calculus at the right ureterovesicular junction with mild right hydronephrosis and right perinephric stranding. There are couple small nonobstructing right renal stones. This was interpreted by the radiologist and was also independently reviewed by myself. Treatment and Re-Evaluation :: Patient was given IV fluids, morphine, and Zofran. Initially, patient stated that there were certain pain medications that she could not take with her Contrave. Patient did not know what those medications were. Patient had no improvement with morphine or Zofran. On reevaluation, patient and stated that they were not supposed to have opioid pain medication because of the Contrave. Patient was given a dose of Toradol. Patient was also given a dose of tamsulosin. Patient was feeling better on reevaluation. Patient and were advised of the findings. Patient was advised that her kidney stone should pass. Patient was given a prescription for tamsulosin and ibuprofen. Patient was instructed to follow-up with her primary care physician in 3 to 5 days. Patient was also instructed to follow-up with her urologist in 3 to 5 days. Patient was instructed to return if worse in any way. Patient and understood and were agreeable with the plan. All questions were answered. Discharge Plan Triage Chief Complaint: Flank Pain ED Provider: Montez Nacne Dx/Rx/DC Orders Clinical Impression: Right distal ureteral calculus, Hypertension Instructions: ED Kidney Stone with Pain Prescriptions: New tamsulosin 0.4 mg capsule 0.4 mg PO DAILY Qty: 7 0RF ibuprofen 600 mg tablet 600 mg PO Q8H PRN PRN (Reason: pain) Qty: 20 0RF No Action Contrave 8-90 mg tablet extended release 2 tab PO BID 84 Days Qty: 336 2RF Primary Care Provider: Forest Curtis Referrals: Uma Graham MD [Med Staff - Active Staff] - 3-5 Days Forest Curtis MD [Primary Care Provider] - 3-5 Days Print Language: Comoran Disposition Disposition: Home, Self Care
--- NOTE | 2024-12-08 02:57 | CT_ITS ---
PROCEDURE: ABDOMEN/PELVIS WITHOUT CONT REASON FOR EXAM: Right flank pain TECHNIQUE: Abdomen and pelvis CT without intravenous contrast. Coronal and sagittal reformatted images COMPARISON: None. FINDINGS: Noncontrast technique limits evaluation of the abdominal and pelvic viscera. Lung bases: Clear Liver: Unremarkable. Gallbladder: Lobular soft tissue focus at the fundus for example axial 71 and sagittal 44 which may represent sludge within a Phrygian cap with gallbladder lesion not excluded and requires further evaluation with follow-up ultrasound. Spleen: Unremarkable. Pancreas: Unremarkable. Adrenals: Unremarkable. Kidneys: 2 small nonobstructing right intrarenal stones. 2 mm right UVJ stone with mild right hydroureteronephrosis and mild right perinephric stranding. Based on size likely with spontaneously passed. No left hydronephrosis.. Bladder: See above. Reproductive Organs: 3.4 cm lesion in the right adnexa axial 115 is not clearly cystic and can not exclude a solid or hemorrhagic lesion and requires follow-up further characterization with ultrasound 2.6 cm cystic focus left ovary can also be further characterized/evaluated at pelvic ultrasound.. Bowel: Unremarkable. Appendix: Normal caliber without secondary signs. Lymph nodes: No suspicious lymph node enlargement. Vasculature: Major vascular structures are unremarkable. Peritoneum / Retroperitoneum: No ascites. No free air. Small fat containing lower midline ventral hernia axial 132 and sagittal 70 Bones: Bilateral nonacute L5 spondylolysis with severe disc space narrowing, [id number] contact, degenerative endplate changes, mild anterolisthesis L5 on S1 and bilateral foraminal narrowing. CT/Abdomen/Pelvis without Cont IMPRESSION: 2 mm right UVJ stone with mild right hydroureteronephrosis and mild right perin ephric stranding as above. A couple of small nonobstructing right intrarenal stones. Findings at the fundus of the gallbladder as above requires follow-up ultrasoun d to further evaluate for possible gallbladder lesion. Bilateral ovarian/adnexal lesions as above require further characterization wit h pelvic ultrasound as above. Bilateral nonacute L5 spondylolysis with associated degenerative changes as abo ve. One or more dose reduction techniques were used (e.g., Automated exposure contr ol, adjustment of the mA and/or kV according to patient size, use of iterative reconstruction technique). Reading Location: [id number]
[2024-12-08] MEDS: Morphine 4 MG/ML Syringe IV ×2 (03:03→03:58)
[2024-12-08] MEDS: Ondansetron 4 MG/2 ML Vial IV ×2 (03:03→04:24)
[2024-12-08] MEDS: 0.9% Normal Saline (1000mL) 1,000 ML 1000 ML IV ×2 (03:07→04:33)
[2024-12-08 03:14] LABS: Bacteria 0 SEEN /hpf (None Seen); Mucous, Urine 0 SEEN /hpf (<or=2+); Squamous Epithelial Cells - UA 0 SEEN /hpf (5-10)
[2024-12-08 03:17] LABS: Absolute Lymphocyte Count 3.52 X10^3/uL (0.83-4.51); Absolute Neutrophil Count 7.7 X10^3/uL (2.0-7.7); Basophil# 0.08 X10^3/uL; Basophil% 0.7 % (0-1); Eosinophil# 0.16 X10^3/uL; Eosinophils% 1.3 % (0-5); Hematocrit 40.1 % (37-47); Hemoglobin 13.4 g/dL (12.0-15.0); Lymphocyte # 3.52 X10^3/ul (0.83-4.51); Lymphocyte % 28.9 % (19-41); Mean Corp Hgb Conc 33.4 g/dL (32-36); Mean Corpuscular Hgb 29.1 pg (27.0-32.0); Mean Corpuscular Volume 87.2 fL (81-99); Monocyte# 0.64 X10^3/uL; Monocyte% 5.3 % (0-10); NRBC Flagged by Analyzer 0 % (0-5); Neutrophil # 7.69 X10^3/uL (2.7-7.7); Neutrophil % 63.2 % (47-70); Platelet Count 237 K/mm3 (150-450); RBC Distribution Width CV 12.8 % (11.6-14.6); RBC Distribution Width SD 40.7 fl (35.1-43.9); White Blood Count 12.2 K/mm3 (4.4-11.0)
[2024-12-08 03:17] LABS: Color, Urine Yellow (Yellow); Glucose, Dipstick Normal (Normal); Ketone-Dipstick Negative (Negative); Leukocyte Esterase-Dipstick 100 /ul (Negative); Nitrite-Dipstick Negative (Negative); Occult Blood-Urine 150 /ul (Negative); Protein-Dipstick 15 mg/dl (Negative); Urine Bilirubin Dipstick Negative (Negative); Urine Clarity Clear (Clear); Urine Urobilinogen Normal (Normal)
[2024-12-08 03:34] LABS: Red Blood Cells-Urine 5-10 SEEN /hpf (0-5); White Blood Cells 0-5 SEEN /hpf (0-5)
[2024-12-08 03:52] LABS: Anion Gap 16 (5-15); BUN 21 mg/dL (4-19); Calcium 9.7 mg/dL (7.6-11.0); Carbon Dioxide 20.2 mmol/L (22.0-29.0); Chloride 104 mmol/L (96-108); Creatinine, Serum 1.1 mg/dL (0.6-1.0); EST Glomerular Filtration Rate 57 (>60); Estimated Creatinine Clearance 46.77 ml/min; Glucose 164 mg/dL (70-99); Potassium 3.9 mmol/L (3.3-5.1); Sodium Level 139 mmol/L (133-145)
[2024-12-08] MEDS: Ketorolac 15 MG/ML Vial IV (04:24)
[2024-12-08] MEDS: Tamsulosin HCl 0.4 MG Capsule PO (04:33)
[2024-12-08 04:38] VITALS: BP 179/85; PULSE 62; RESP 18; O2SAT 100
[2024-12-08 05:52] VITALS: BP 156/70; PULSE 83; RESP 18; TEMP 36.6; O2SAT 100
== END 2024-12-08 06:05 | disposition home or self-care (01) ==
PROVIDERS: Emergency Provider Emergency Medicine; PCP Family Medicine; Visit Provider Emergency Medicine
DX: N13.2 Hydronephrosis with renal and ureteral calculous obstruction (principal); I10 Essential (primary) hypertension
CPT/HCPCS: 74176; 80048; 81001; 85025; 96361; 96374; 96375; 96376; 99283; A4216; J2405

== ENCOUNTER → 2025-02-21 | Outpatient (CLI) | payer OTHER, SELFPAY ==
--- NOTE | 2025-02-21 16:11 | CT_ITS ---
PROCEDURE: ABDOMEN/PELVIS WITHOUT CONT 02/21/2025 REASON FOR EXAM: URETERAL STONE No pain at this time. TECHNIQUE: Abdomen and pelvis CT without intravenous contrast. Noncontrast technique limits evaluation of the abdominal and pelvic viscera. Coronal and Sagittal reconstruction series were provided. One or more dose reduction techniques were used (e.g., Automated exposure control, adjustment of the mA and/or kV according to patient size, use of iterative reconstruction technique). PATIENT PREPARATION: Per protocol ORAL CONTRAST TYPE: None. CT DLP volume: 8.97 mGy. DLP: 432.94 COMPARISON: Prior study dated December 08, 2024. FINDINGS: Lung bases: Unremarkable Liver: Normal size. No obvious mass. Gallbladder: Once again, there is evidence of soft tissue density in the fundus of the gallbladder suggestive of possible tumefactive sludge. Spleen: Normal size. Pancreas: Normal size. No surrounding inflammation. Adrenals: Unremarkable Kidneys: There is a 2 mm nonobstructive calculus in the posterior calyx of the upper pole of the right kidney. A 3 mm calculus is seen in the lower pole calyx of the right kidney. Punctate nonobstructive calculus in the upper pole of the left kidney. Punctate nonobstructive calculus in the lower pole of the left kidney. Bladder: Unremarkable Reproductive Organs: Stable bilateral predominantly cystic lesions in the ovaries more prominent on the right side. Correlation with ultrasound recommended. Bowel: Colonic diverticulosis without diverticulitis. Appendix: The appendix is not identified. There is no inflammatory process identified in the right lower quadrant to suggest appendicitis. Lymph nodes: Unremarkable. Vasculature: The abdominal aorta and IVC contours are normal. Noncontrast technique limits evaluation. Peritoneum / Retroperitoneum: Unremarkable Bones: Once again, there is evidence of minimal anterior listhesis of L5 on S1 with the spondylolysis of the pars interarticularis of the L5 vertebrae. CT/Abdomen/Pelvis without Cont IMPRESSION: Stable small bilateral nonobstructive intrarenal calculi. No evidence of hydro nephrosis at this time. The remainder of the examination is unchanged. OVERALL FINAL ASSESSMENT: . LI-RADS is not meant to be used in patients <18 years or patients with cirrhosi s due to congenital hepatic fibrosis or due to vascular disorders, because these patients have a lower chance of developing HC C. Reading Location: [id number]
== END | disposition home or self-care (01) ==
LOC: CT 16:10
PROVIDERS: PCP Family Medicine; Referring Provider Urology; Visit Provider Urology
DX: N20.1 Calculus of ureter (principal)
CPT/HCPCS: 74176

== ENCOUNTER → 2025-03-02 | Outpatient (CLI) | payer OTHER, SELFPAY ==
[2025-03-04 08:08] LABS: Rubeola IgG Ab > 300.0 AU/mL (Immune >16.4)
== END | disposition home or self-care (01) ==
LOC: LAB 16:23
PROVIDERS: PCP Family Medicine; Referring Provider Family Medicine; Visit Provider Family Medicine
DX: Z01.84 Encounter for antibody response examination (principal)
CPT/HCPCS: 36415; 86765

== ENCOUNTER → 2025-04-07 | Outpatient (CLI) | payer OTHER, SELFPAY ==
--- NOTE | 2025-04-07 15:45 | BI_ITS ---
EXAM: SCRN MAMM (CAD)W/LOUISA BILAT DATE: 04/07/2025 CLINICAL HISTORY: F, Age 60 y/o , SCREEN FOR BREAST CANCER Aunt with breast cancer history of prior left stereotactic breast biopsy. TECHNIQUE: SCRN MAMM (CAD)W/LOUISA BILAT COMPARISON: Prior exam(s) dated December 12, 2023.. FINDINGS: TISSUE DENSITY: The breasts are heterogeneously dense, which may obscure small masses. Bilateral Breast Mammographic Findings: No significant masses, calcifications or other abnormalities are identified. A tissue clip marker is once again seen in the deep central portion of the left breast. Stable small fat containing left axillary lymph nodes. No suspicious masses, areas of developing architectural distortion, or suspicious calcifications. There has been no significant interval change. BI/SCRN MAMM (CAD)W/LOUISA BILAT IMPRESSION: Stable examination. OVERALL FINAL ASSESSMENT BI-RADS 2: BENIGN RECOMMEND ANNUAL MAMMOGRAPHIC SCREENING. RECOMMENDATION: Routine annual follow-up in 1 Year A letter with findings and recommendations will be mailed to the patient. Reading Location: [id number]
== END | disposition home or self-care (01) ==
LOC: OPBI 14:36
PROVIDERS: PCP Family Medicine; Referring Provider Obstetrics & Gynecology; Visit Provider Obstetrics & Gynecology
DX: Z12.31 Encounter for screening mammogram for malignant neoplasm of breast (principal)
CPT/HCPCS: 77063; 77067

== ENCOUNTER 2025-06-23 01:40 | Emergency (ER) | payer OTHER, SELFPAY ==
[2025-06-23 01:41] VITALS: BP 136/112; PULSE 73; RESP 18; TEMP 36.4; O2SAT 100; BMI 29.7
[2025-06-23] MEDS: 0.9% Normal Saline (1000mL) 1,000 ML 999 ML IV (02:08)
[2025-06-23] MEDS: Ketorolac 30 MG/ML Syringe IV (02:09)
[2025-06-23 02:12] LABS: Mucous, Urine 0 SEEN /hpf (<or=2+)
[2025-06-23 02:15] LABS: Color, Urine Yellow (Yellow); Glucose, Dipstick Normal (Normal); Ketone-Dipstick 50 mg/dl (Negative); Leukocyte Esterase-Dipstick Negative /ul (Negative); Nitrite-Dipstick Negative (Negative); Occult Blood-Urine 10 /ul (Negative); Protein-Dipstick 15 mg/dl (Negative); Specific Gravity, Urine 1.015 (1.002-1.030); Urine Bilirubin Dipstick Negative (Negative)
[2025-06-23 02:15] LABS: Hematocrit 39.0 % (37-47); Hemoglobin 13.4 g/dL (12.0-15.0); Immature Granulocytes Count 0.050 X10^3/uL (0.0-0.0); Mean Corp Hgb Conc 34.4 g/dL (32-36); Mean Corpuscular Volume 86.5 fL (81-99); Mean Platelet Vol. 9.3 fl (6.2-12.0); NRBC Flagged by Analyzer 0 % (0-5); Platelet Count 292 K/mm3 (150-450); RBC Distribution Width CV 12.5 % (11.6-14.6); RBC Distribution Width SD 39.8 fl (35.1-43.9); Red Blood Count 4.51 M/mm3 (4.2-5.4); White Blood Count 12.3 K/mm3 (4.4-11.0)
[2025-06-23 02:29] LABS: Red Blood Cells-Urine 0-5 SEEN /hpf (0-5); Squamous Epithelial Cells - UA 0-5 SEEN /hpf (5-10)
--- OUTSIDE RECORDS SUMMARY | 2025-06-23 02:36 | XMS RPT_ITS | CCD ---
Author Organization [facility] CliniSysd Care Team Providers Care Manager Special Events Name Role Phone Unavailable Primary Care Provider Dr. Perlita Lua Primary Care Provider Dr. Perlita Perry Referring Provider [phone] Moon Slater Attending Provider Kirsten, Dr. Garg Primary Care Provider Dr. Kurtis Cardozo Attending Provider Dr. Uma Graham Referring Provider [phone] Uma Graham Other Provider Dr. Moon Slater Other Provider Kirsten, Dr. Garg Primary Care Provider Dr. Moon Slater Attending Provider Kirsten, Dr. Garg Referring Provider Dr. Forest Curtis Primary Care Provider Kirsten, Dr. Garg Referring Provider Dr. Moon Slater Attending Provider Kirsten, Dr. Garg Primary Care Provider Kirsten, Dr. Garg Referring Provider Dr. Moon Slater Attending Provider Kirsten, Dr. Garg Primary Care Provider Kirsten, Dr. Garg Referring Provider Dr. Moon Slater Attending Provider [phone] SASHA Cadena Attending Provider Dr. Forest Curtis Primary Care Provider [phone] Kirsten, Dr. Garg Referring Provider Dr. Moon Slater Attending Provider [phone] SASHA Cadena Attending Provider Kirsten PINA, Dr. Garg Primary Care Provider [phone] Goyo DOYLE, Dr. Herrmann Attending Provider [phone] Goyo DOYLE, Dr. Herrmann Emergency Provider Gladys PINA, Dr. Eaton Other Provider Gladys PINA, Dr. Eaton Attending Provider Gladys PINA, Dr. Eaton Referring Provider Kirsten PINA, Dr. Garg Referring Provider [phone] Abraham MORTICIAN HELPER-C, Susannah Attending Provider Kirsten PINA, Dr. Garg Attending Provider [phone] Kirsten PINA, Dr. Garg Primary Care Provider [phone] Bryon PINA, Dr. Mustafa Attending Provider Bryon PINA, Dr. Mustafa Referring Provider Gladys PINA, Dr. Eaton Attending Provider Gladys PINA, Dr. Eaton Referring Provider Massimo Lopez Attending Unavailable Curtis, Forest Primary Care Unavailable Curtis, Forest Referring Unavailable Curtis, Forest Primary Care Unavailable Curtis, Forest Referring Unavailable Susannah Rosario Attending Unavailable Curtis, Forest Primary Care Unavailable Moon Slater Attending Unavailable Moon Slater Referring Unavailable Massimo Lopez Attending Unavailable Kirsten, Forest Primary Care Unavailable Massimo Lopez Referring Unavailable Curtis, Forest Primary Care Unavailable Moon Slater Attending Unavailable Moon Slater Referring Unavailable Uma Graham Referring Unavailable Kirsten, Forest Primary Care Unavailable Uma Graham Attending Unavailable Curtis, Forest Attending Unavailable Curtis, Forest Referring Unavailable Curtis, Forest Primary Care Unavailable Curtis, Forest Primary Care Unavailable Montez Nance Attending Unavailable Uma Graham Consulting Unavailable Forest Curtis Referring Unavailable Forest Curtis Primary Care Unavailable Susannah Rosario Attending Unavailable Forest Curtis Referring Unavailable Forest Curtis Primary Care Unavailable Moon Slater Attending Unavailable Forest Curtis Primary Care Unavailable Forest Curtis Referring Unavailable Moon Slater Attending Unavailable Allergies Allergy Classification Reported Allergen(s) Allergy Type Date of Onset Reaction(s) Facility (1 source) Penicillins Propensity to adverse reactions to drug 08-23-2020 [facility] [place] Medications Current Medications Medication Drug Class(es) Dates Sig (Normalized) Sig (Original) naproxen 500 mg oral tablet (1 source) Nonsteroidal Anti-inflammatory Drug Start: 08-23-2020 take 1 tablet by mouth twice daily at mealtime naproxen (NAPROSYN) 500 MG tablet Take 1 tablet by mouth 2 times daily (with meals) 14 tablet 0 08/23/2020 Active Start: 08-23-2020 take 1 tablet by dat th twice daily at mealtime naproxen (NAPROSYN) 500 MG tablet Take 1 tablet by mouth 2 times daily (with meals) 14 tablet 0 08/23/2020 Active sodium chloride flush 0.9 % injection 3 mL (1 source) Start: 08-23-2020 sodium chlorid e flush 0.9 % injection 3 mL tamsulosin hydrochloride 0.4 mg oral capsule (7 sources) alpha-Adrenergi c Moises Start: 12-08-2024 End: 05-24-2025 take 1 capsule by mouth once daily as needed Tamsulosin 0.4 mg capsule Active 0.4 mg PO DAILY as needed May 24, 2025 1:02pm Tirzepatide (Weight Loss) (1 source) Start: 05-24-2025 Tirzepatide (Weight Loss) (Zepbound) 2.5 mg/0.5 mL pen injector Active 2.5 mg SC EVERY WEEK 2 0 May 24, 2025 12:00am Sleep apnea Sleep apnea, unspecified for 4 weeks Completed/Discontinued Medications Medication Drug Class(es) Dates Sig (Normalized) Sig (Original) acetaminophen 325 mg / oxyCODONE hydrochloride 5 mg oral tablet (20 sources) Opioid Agonist Start: 04-01-2022 End: 01-30-2023 Oxycodone-Acetamino phen 5-325 mg tablet Discontinued 1 {tbl} PO EVERY 6 HOURS NEEDED as needed for Pain 12 3 0 April 01, 2022 January 30, 2023 4:14pm Calculus of ureter Calculus of ureter Start: 04-01-2022 End: 01-30-2023 take 1 tablet by mouth every six hours as needed Oxycodone-Acetaminophen Discontinued 1 TABLET PO EVERY 6 HOURS NEEDED 12 3 April 01, 2022 January 30, 2023 4:14pm Start: 12-25-2021 End: 02-05-2022 Oxycodone-Acetaminophen 1 TA BLET tablet Discontinued 2 {tbl} PO EVERY 8 HOURS NEEDED as needed for Pain 10 7 0 December 25, 2021 February 05, 2022 11:35am Calculus of kidney Calculus of kidney Start: 12-25-2021 End: 02-05-2022 take 2 tablets by mouth every eight hours as needed Oxycodone-Acetaminophen Discontinued 2 TABLET PO EVERY 8 HOURS NEEDED 10 7 December 25, 2021 February 05, 2022 11:35am Start: 08-23-2020 End: 08-26-2020 take 1-2 tablets by mouth every six hours as needed for pain oxyCODONE-acetaminophen (PERCOCET) 5-325 MG per tablet Indications: Ureterolithiasis Take 1-2 tablets by mouth every 6 hours as needed for Pain for up to 3 days. WARNING: May cause drowsiness. May impair ability to operate vehicles or machinery. Do not use in combination with alcohol. 8 tablet 0 08/23/2020 08/26/2020 Active [id number] 200 actuat albuterol 0.09 mg/actuat metered dose inhaler (14 sources) beta2-Adrenergic Agonist Start: 04-27-2019 End: 04-28-2019 Albuterol Sulfate (Proair Hfa) 90 mcg/actuation HFA aerosol inhaler Discontinued 2 NMA INHALATION EVERY 6 HOURS April 27, 2019 12:00am April 28, 2019 1:27pm Start: 04-27-2019 End: 04-28-2019 take 1 puff(s) by inhalation every six hours Albuterol Sulfate (Proair Hfa) 90 mcg/actuation HFA aerosol inhaler Discontinued 2 PUFF INHALATION EVERY 6 HOURS April 27, 2019 12:00am April 28, 2019 1:27pm amoxicillin 875 mg / clavulanate 125 mg oral tablet (7 sources) Penicillin-class Antibacterial Start: 11-20-2023 End: 11-30-2023 Amoxicillin-Pot Clavulanate 875-125 mg tablet Discontinued 1 {tbl} PO Q12H 20 10 0 November 20, 2023 1:00am November 29, 2023 1:00am November 30, 2023 1:02am Acute sinusitis, unspecified Start: 11-20-2023 End: 11-30-2023 take 1 tablet by mouth every twelve hours Amoxicillin-Pot Clavulanate Discontinued 1 TABLET PO Q12H 20 10 November 20, 2023 1:00am November 30, 2023 1:02am 12 hr buPROPion hydrochloride 90 mg / naltrexone hydrochloride 8 mg extended release oral tablet (20 sources) Opioid Antagonist, Aminoketone Start: 08-01-2023 End: 03-31-2025 Naltrexone-Bupropion (Contrave) 8-90 mg tablet extended release Discontinued 2 {tbl} PO TWICE A DAY 336 84 2 May 04, 2024 3:22pm September 06, 2024 8:21am Start: 01-30-2023 End: 08-01-2023 Naltrexone-Bupropion (Contra ve) 8-90 mg tablet extended release Discontinued 1 {tbl} PO ONCE January 30, 2023 12:00am August 01, 2023 6:21am cephalexin 500 mg oral capsule (14 sources) Cephalosporin Antibacterial Start: 12-25-2021 End: 02-05-2022 take 1 capsule by mouth every twelve hours Cephalexin 500 MG capsule Discontinued 500 mg PO EVERY 12 HOURS 6 3 0 December 25, 2021 12:00am February 05, 2022 11:35am post-operative cyclobenzaprine hydrochloride 10 mg oral tablet (14 sources) Muscle Relaxant Start: 04-27-2019 End: 04-28-2019 take 1 tablet by mouth at bedtime Cyclobenzaprine 10 mg tablet Discontinued 10 mg PO BEDTIME April 27, 2019 12:00am April 28, 2019 1:28pm ibuprofen 600 mg oral tablet (20 sources) Nonsteroidal Anti-inflammatory Drug Start: 12-08-2024 End: 05-24-2025 take 1 tablet by mouth every eight hours as needed for pain Ibuprofen 600 mg tablet Discontinued 600 mg PO EVERY 8 HOURS NEEDED as needed for pain 20 0 December 08, 2024 1:00am May 24, 2025 1:01pm Start: 04-28-2019 End: 06-08-2020 take 1 tablet by mouth every six hours as needed Ibuprofen 200 mg tablet Discontinued 200 mg PO EVERY 6 HOURS as needed April 28, 2019 12:00am June 08, 2020 3:48pm Start: 04-27-2019 End: 04-28-2019 take 1 tablet by mouth three times daily Ibuprofen 800 mg tablet Discontinued 800 mg PO THREE TIMES A DAY April 27, 2019 12:00am April 28, 2019 1:28pm Inulin (14 sources) Start: 04-27-2019 End: 04-28-2019 inulin 2.5 gram chewable tab let Discontinued GM PO April 27, 2019 7:14pm April 28, 2019 1:28pm Start: 04-27-2019 End: 04-28-2019 Inulin 2.5 gram tablet,chewa ble Discontinued g PO 0 April 27, 2019 12:00am April 28, 2019 1:28pm Start: 04-27-2019 End: 04-28-2019 Inulin 2.5 gram tablet,chewa ble Discontinued g PO April 27, 2019 12:00am April 28, 2019 1:28pm Start: 04-27-2019 End: 04-28-2019 inulin 2.5 gram chewable tab let Discontinued GM PO April 26, 2019 11:00pm April 28, 2019 12:28pm Start: 04-27-2019 End: 04-28-2019 inulin 2.5 gram chewable tab let Discontinued GM PO April 27, 2019 12:00am April 28, 2019 1:28pm ketorolac tromethamine 10 mg oral tablet (14 sources) Nonsteroidal Anti-inflammatory Drug, Cyclooxygenase Inhibitor Start: 04-01-2022 End: 01-30-2023 take 1 tablet by mouth every eight hours as needed for pain Ketorolac 10 mg tablet Discontinued 10 mg PO Q8H as needed for pain 15 5 0 April 01, 2022 12:00am January 30, 2023 4:14pm Start: 08-23-2020 End: 08-23-2020 ketorolac (TORADOL) injectio n 15 mg lisinopril 5 mg oral tablet (10 sources) Angiotensin Converting Enzyme Inhibitor Start: 07-22-2023 End: 11-03-2023 take 1 tablet by mouth once daily Lisinopril 5 mg tablet Discontinued 5 mg PO DAILY July 22, 2023 12:00am November 03, 2023 4:02pm meloxicam 15 mg oral tablet (14 sources) Nonsteroidal Anti-inflammatory Drug Start: 01-03-2021 End: 11-01-2021 take 1 tablet by mouth once daily Meloxicam 15 mg tablet Discontinued 15 mg PO DAILY 30 0 January 03, 2021 12:00am November 01, 2021 4:23pm Do not take in conjunction with other NSAIDs. methylPREDNISolone acetate 40 mg/ml injectable suspension (1 source) Corticosteroid Start: 01-03-2021 End: 01-03-2021 Depo-Medrol (methylprednisolon e acetate) 40 mg/mL suspension for injection Discontinued 40 MG INTRAARTIC ONCE January 03, 2021 8:01am January 03, 2021 8:42am 1 ml morphine sulfate 4 mg/ml cartridge (1 source) Opioid Agonist Start: 08-23-2020 End: 08-23-2020 morphine injection 4 mg nitrofurantoin, macrocrystals 25 mg / nitrofurantoin, monohydrate 75 mg oral capsule (15 sources) Nitrofuran Antibacterial Start: 08-31-2024 End: 09-05-2024 take 1 capsule by mouth every twelve hours at mealtime Nitrofurantoin Monohyd/M-Cryst (Macrobid) 100 mg capsule Discontinued 100 mg PO Q12H 10 5 0 August 31, 2024 1:00am September 04, 2024 1:00am September 05, 2024 1:08am must administer with a meal/food Start: 08-28-2023 End: 09-04-2023 take 1 capsule by mouth every twelve hours at mealtime Nitrofurantoin Monohyd/M-Cryst 100 mg capsule Discontinued 1 NMA PO Q12H 14 7 0 August 28, 2023 1:00am September 03, 2023 1:00am September 04, 2023 1:04am administer with a meal/food; swallow whole; do not open, crush, dissolve , or chew ondansetron 4 mg disintegrating oral tablet (15 sources) Serotonin-3 Receptor Antagonist Start: 04-01-2022 End: 01-30-2023 take 1 tablet by mouth every six hours as needed for nausea Ondansetron 4 mg tablet,disintegrating Discontinued 4 mg PO EVERY 6 HOURS NEEDED as needed for Nausea 15 0 April 01, 2022 10:15am January 30, 2023 4:14pm Start: 08-23-2020 take 1 tablet by dat th every eight hours as needed for nausea ondansetron (ZOFRAN ODT) 4 MG disintegrating tablet Take 1 tablet by mouth every 8 hours as needed for Nausea 10 tablet 0 08/23/2020 Active Start: 08-23-2020 End: 08-23-2020 ondansetron (ZOFRAN) injecti on 4 mg Semaglutide (Weight Loss) (6 sources) Start: 09-07-2024 End: 10-05-2024 Semaglutide (Weight Loss) (W egovy) 0.25 mg/0.5 mL pen injector Discontinued 0.25 mg SC EVERY WEEK 2 September 07, 2024 1:00am October 04, 2024 1:00am October 05, 2024 1:08am administer weeks 1 through 4 of therapy Start: 09-07-2024 End: 10-05-2024 Semaglutide (Weight Loss) (W egovy) 0.25 mg/0.5 mL pen injector Discontinued 0.25 mg SC EVERY WEEK 2 September 07, 2024 1:00am October 04, 2024 1:00am October 05, 2024 1:08am administer weeks 1 through 4 of therapy Problems Active Problems Problem Classification Problem Date Documented Date Episodic/Chronic Calculus of urinary tract (20 sources) Ureteric stone; Translations: [Kidney stone] Onset: 02-25-2025 Episodic Cardiac dysrhythmias (14 sources) Intermittent palpitations; Translations: [Palpitations] 12-25-2021 Episodic Conditions associated with dizziness or vertigo (14 sources) Lightheadedness; Translations: [Dizziness and giddiness] 12-25-2021 Episodic Diabetes mellitus without complication (6 sources) Prediabetes; Translations: [Prediabetes] 09-13-2024 Episodic Comment on above: IF and healthy diet, recommend Wegovy Essential hypertension (20 sources) Hypertensive disorder; Translations: [Essential (primary) hypertension] Onset: 05-24-2025 07-22-2023 Chronic Comment on above: s/p 8% weight reduct ion s/p 9% weight reduct ion Joint disorders and dislocations; trauma-related (14 sources) Tear of medial meniscus of knee; Translations: [Other tear of medial meniscus, current injury, left knee, initial encounter] 12-25-2021 Episodic Menopausal disorders (14 sources) Postmenopausal bleeding; Translations: [Postmenopausal bleeding] 01-01-2022 Chronic Comment on above: US, EMB. Nonspecific chest pain (14 sources) Chest pain; Translations: [Chest pain, unspecified] 12-25-2021 Episodic Osteoarthritis (14 sources) Arthritis of knee; Translations: [Unilateral primary osteoarthritis, left knee] 12-25-2021 Chronic Other aftercare (1 source) Encounter for other specified surgical aftercare; Translations: [Other specified aftercare following surgery] Episodic Other diseases of kidney and ureters (14 sources) Hydronephrosis; Translations: [Unspecified hydronephrosis] 12-02-2021 Episodic Other female genital disorders (14 sources) Polyp of corpus uteri; Translations: [Polyp of corpus uteri] 01-01-2022 Episodic Comment on above: Plan D&C hysteroscop y at time of ES WL procedure with Dr. Graham Other injuries and conditions due to external causes (7 sources) Blood blister; Translations: [Other injury of unspecified body region, initial encounter] 02-02-2024 Episodic Other injuries and conditions due to external causes (1 source) Other injury of unspecified body region, initial encounter; Translations: [Blister of other, multiple, and unspecified sites, without mention of infection] 01-19-2024 Episodic Other lower respiratory disease (1 source) Solitary pulmonary nodule; Translations: [Pulmonary nodule, right] Episodic Other lower respiratory disease (14 sources) Dyspnea; Translations: [Dyspnea, unspecified] 12-25-2021 Episodic Other nutritional; endocrine; and metabolic disorders (20 sources) Obesity; Translations: [Other obesity] 07-22-2023 Chronic Comment on above: Nutrition plan: plan 16:8 IF 5-6x weekly, [id number] Balanced calorie restricted nutritional plan. Medication plan: contrave- bps at home WNL, fu with pcp. control- post menopause.Behavior intervention: recommend daily journal of food intake with electronic methods. Exercise plan: [id number] steps daily and resistance training daily; recently bought a weighted vest. Nutrition plan: plan to restart 16:8 IF 3-5x weekly, 4402-7543 Balanced calorie restricted nutritional plan. Medication plan: contrave-consult with SM regarding dosing. bps at home WNL, fu with pcp. control- post menopause.Behavior intervention: recommend daily journal of food intake with electronic methods; limit snacking. Exercise plan: 38611 steps daily and resistance training daily; recently bought a weighted vest. Nutrition plan: plan to restart 16:8 IF; bump up to 5x weekly, [id number] Balanced calorie restricted nutritional plan. Travels often. Medication plan: Contrave. bps at home WNL, fu with pcp. control- post menopause. Behavior intervention: recommend daily journal of food intake with electronic methods; limit snacking. Exercise plan: 94747 steps daily and resistance training daily; recently bought a weighted vest; occasionally using. Other nutritional; endocrine; and metabolic disorders (19 sources) Body mass index 30+ - obesity; Translations: [Body mass index (BMI) 31.0-31.9, adult] 07-22-2023 Chronic Other nutritional; endocrine; and metabolic disorders (3 sources) Body mass index (BMI) 31.0-31.9, adult; Translations: [Body Mass Index 31.0-31.9, adult] 07-22-2023 Chronic Other nutritional; endocrine; and metabolic disorders (9 sources) Other obesity; Translations: [Obesity, unspecified] Onset: 05-24-2025 07-22-2023 Chronic Other nutritional; endocrine; and metabolic disorders (2 sources) Body mass index (BMI) 30.0-30.9, adult; Translations: [Body Mass Index 30.0-30.9, adult] 08-05-2023 Chronic Other nutritional; endocrine; and metabolic disorders (9 sources) Overweight in adulthood with body mass index of 25 or more but less than 30; Translations: [Body mass index (BMI) 29.0-29.9, adult] 09-09-2023 Episodic Other nutritional; endocrine; and metabolic disorders (2 sources) Body mass index (BMI) 29.0-29.9, adult; Translations: [Body Mass Index 29.0-29.9, adult] 09-09-2023 Episodic Other nutritional; endocrine; and metabolic disorders (17 sources) Body mass index 25-29 - overweight; Translations: [Overweight] 02-02-2024 Episodic Comment on above: SW- 150 (160 previou sly) s/p 10% total weight reduction nutritional and medication intervention recommendations.initial obesity assessment lab panel reviewed, ekg ordered SW- 150 (160 previou sly) s/p 10% total weight reduction nutritional and medication intervention recommendations. Current 146lb. initial obesity assessment lab panel reviewed, ekg previously SW- 150 (160 previou sly) s/p 10% total weight reduction nutritional and medication intervention recommendations. Current 144lb.initial obesity assessment lab panel reviewed, ekg previously. Other nutritional; endocrine; and metabolic disorders (2 sources) Overweight; Translations: [Overweight] Onset: 05-24-2025 02-02-2024 Episodic Other screening for suspected conditions (not mental disorders or infectious disease) (8 sources) Patient encounter status; Translations: [Encounter for screening for other suspected endocrine disorder] Onset: 10-12-2024 09-13-2024 Episodic Otitis media and related conditions (8 sources) Acute left otitis media; Translations: [Otitis media, unspecified, left ear] 02-02-2024 Episodic Residual codes; unclassified (20 sources) Sleep apnea; Translations: [Sleep apnea, unspecified] 07-22-2023 Chronic Comment on above: seeing william for ev aluation, recommend 10% weight reduction seeing william for ev aluation, recommend 10% weight reduction. ordered zepbound. Residual codes; unclassified (9 sources) Sleep apnea, unspecified; Translations: [Unspecified sleep apnea] Onset: 05-24-2025 07-22-2023 Chronic Urinary tract infections (2 sources) Urinary tract infection, site not specified; Translations: [Urinary tract infection, site not specified] 08-28-2023 Episodic Past or Other Problems Problem Classification Problem Date Documented Da te Episodic/Chronic Abdominal pain (1 source) Unspecified abdominal pain; Translations: [Unspecified abdominal pain] Onset: 12-22-2024 Episodic Genitourinary symptoms and ill-defined conditions (1 source) Dysuria; Translations: [Dysuria] Onset: 09-28-2024 Episodic Results Test Name Value Interpretation Reference Range Facility Tire Inspector Office Visit Reporton 05-24-2025 Tire Inspector Office Visit Report [facility] [address], [address] [place] [address] OFFICE VISIT Date of Service: 05/24/25 MR#: [id number] Acct: [id number] Name: GENNY NEWMAN Rep #: [id number] : 1965 Provider: Dr. 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* Optical 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 Required: No Is patient in pain?: No Allergies No Known Allergies Allergy (Verified 05/24/25 13:01) Medications ???Medication ???Instructions ???Recorded ???Confirmed ???Type naltrexone 8 mg-bupropion 90 mg 2 tab PO BID 12 weeks #336 tabs 05/24/25 Rx tablet,extended release (Contrave) tamsulosin 0.4 mg capsule 0.4 mg PO DAILY PRN 05/24/25 Hist ory tirzepatide (weight loss) 2.5 2.5 mg (0.5 mL) subcut QWEEK #2 mL 05/24/25 05/24/25 Rx mg/0.5 mL subcutaneous pen injector (Zepbound) Is last menstrual period known: No Post menopausal: Yes Patient : No : No Nurse's Note: Weight management follow up. She is currently being treated with the anti obesity medication Contrave. Weight loss since previous visit: 0.4 lbs Total weight loss leading up to present visit: 11.4 lbs She is tracking her food intake, following IF-1500 calories per day, increasing protein intake. On average, she is tracking food intake 3 days a week and staying within intake goals 3 days a week. ??? Her current weekly exercise is 10,000 steps daily with weights x4 times per week and aerobics x3 times per week. On a scale 1-10 she rates the difficulty of her current weight management program a 6. She says she is struggling the most right now with what else she could be doing right now to continue to loose weight, her current weight is not where she wants to be but she also does not know what she wants her end weight to be. side effects of medications: None PFSH Medical History History of stress test Cardiology follow-up encounter Hx of kidney disease Endometrial polyp Renal calculus Wears contact lenses Post-menopausal MRSA infection Postmenopausal bleeding Obesity Surgical History History of laparoscopy History of Family History Father No problems noted. 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 pets and animals: Yes leisure activities: other history of recent travel: Yes ([employer], [employer], [employer]) sexually active: Yes Smoking Status: Never smoker alcohol intake: current substance use type: does not use diet: low carbohydrate and other well-balanced diet: daily or most days caffeine: No what type of physical activity do you participate in: walking, aerobics and weight training frequency: other details: 10,000 steps daily seatbelt use: always do you feel safe at home: Yes 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 watching bps at home and they are fluctuating. Last PAP: 02/02/24 - normal History of abnormal PAP: Last mammogram: 6/26/25 - normal History of abnormal mammogram: Colon cancer screening: Other preventative health care screenings: PCP Kirsten Female Reproductive History Questions: metrorrhagia: No, sexually active: Yes, dyspareunia: No and PCB: No Menopausal Symptoms: No hot flashes, No night sweats, No weight change, No mood changes, No difficulty concentrating, No sleep problems and No change in libido ROS Const Constitutional: Reports as per HPI and weight loss; Denies fatigue, increased appetite, poor appetite, night sweats or weight gain Cardio Card: Denies chest pain (more content not included)... Normal [facility] Breast imaging reportOrdered By: Damian Meraz on 04-07-2025 Study report [facility] Imaging Services [address] [place] [address] SCRN MAMM (CAD)W/LOUISA BILAT MR#: [id number] Acct: [id number] Name: GENNY NEWMAN Rep #: [id number] : 1965 F 60 From: Jonathan Meraz MD PCP: Dr. Forest Curtis MD Status: [facility] Study:SCRN MAMM (CAD)W/LOUISA BILAT Date of Exa m: 04/07/25 Exam# [id number] Ordering Dr: Moon Kim MD EXAM: SCRN MAMM (CAD)W/LOUISA BILAT DATE: 04/07/2025 CLINICAL HISTORY: F, Age 60 y/o , SCREEN FOR BREAST CANCER Aunt with breast cancer history of prior left stereotactic breast biopsy. TECHNIQUE: SCRN MAMM (CAD)W/LOUISA BILAT COMPARISON: Prior exam(s) dated December 12, 2023.. FINDINGS: TISSUE DENSITY: The breasts are heterogeneously dense, which may obscure small masses. Bilateral Breast Mammographic Findings: No significant masses, calcifications or other abnormalities are identified. A tissue clip marker is once again seen in the deep central portion of the left breast. Stable small fat containing left axillary lymph nodes. No suspicious masses, areas of developing architectural distortion, or suspicious calcifications. There has been no significant interval change. BI/SCRN MAMM (CAD)W/LOUISA BILAT IMPRESSION: Stable examination. OVERALL FINAL ASSESSMENT BI-RADS 2: BENIGN RECOMMEND ANNUAL MAMMOGRAPHIC SCREENING. RECOMMENDATION: Routine annual follow-up in 1 Year A letter with findings and recommendations will be mailed to the patient. Reading Location: [id number] CC: Dr. Forest Curtis MD; Dr. Moon Slater MD ~ Product Support Representative: Signed [facility] SCRN MAMM (CAD)W/LOUISA BILATo n 04-07-2025 SCRN MAMM (CAD)W/LOUISA BILAT [facility] Imaging Services [address] [place], [place] [id number] SCRN MAMM (CAD)W/LOUISA BILAT MR#: [id number] Acct: [id number] Name: GENNY NEWMAN Rep #: [id number] : 1965 F 60 From: Damian samuel MD PCP: Dr. Forest Curtis MD Status: [facility] Study: SCRN MAMM (CAD)W/LOUISA BILAT Date of Exam: 03/14 04/06 Exam# [id number] Ordering Dr: Moon Slater EXAM: SCRN MAMM (CAD)W/LOUISA BILAT DATE: 04/07/2025 CLINICAL HISTORY: F, Age 60 y/o , SCREEN FOR BREAST CANCER Aunt with breast cancer history of prior left stereotactic breast biopsy. TECHNIQUE: SCRN MAMM (CAD)W/LOUISA BILAT COMPARISON: Prior exam(s) dated December 12, 2023.. FINDINGS: TISSUE DENSITY: The breasts are heterogeneously dense, which may obscure small masses. Bilateral Breast Mammographic Findings: No significant masses, calcifications or other abnormalities are identified. A tissue clip marker is once again seen in the deep central portion of the left breast. Stable small fat containing left axillary lymph nodes. No suspicious masses, areas of developing architectural distortion, or suspicious calcifications. There has been no significant interval change. BI/SCRN MAMM (CAD)W/LOUISA BILAT IMPRESSION: Stable examination. OVERALL FINAL ASSESSMENT BI-RADS 2: BENIGN RECOMMEND ANNUAL MAMMOGRAPHIC SCREENING. RECOMMENDATION: Routine annual follow-up in 1 Year A letter with findings and recommendations will be mailed to the patient. Reading Location: [id number] CC: Dr. Forest Curtis MD; Dr. Moon Slater MD Product Support Representative: Signed Normal [facility] Tire Inspector Office Visit Reporton 03-31-2025 Tire Inspector Office Visit Report [facility]'s [address], [address] [place] [address] OFFICE VISIT Date of Service: 03/31/25 MR#: [id number] Acct: [id number] Name: GENNY NEWMAN Rep #: [id number] : 1965 Provider: MYRNA Santos Age/Sex: 60/F [place] [facility] [place]: Signed Intake Vital Signs 02/23/25 11:30 03/31/25 09:39 Height 4 ft 10 in 4 ft 10 in Weight: 146 lb 2 oz 144 lb BMI 30.5 30.1 BP 146/81 H 134/86 H Pulse 73 Intake Visit Reasons: 5 wk f/u Optical 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 Required: No Is patient in pain?: No Allergies No Known Allergies Allergy (Verified 03/31/25 09:37) Medications ???Medication ???Instructions ???Recorded ???Confirmed ???Type ibuprofen 600 mg tablet 600 mg PO Q8H PRN PRN pain #20 03/31/25 Rx TABLETS tamsulosin 0.4 mg capsule 0.4 mg PO DAILY #7 CAPSULES 03/31/25 Rx naltrexone 8 mg-bupropion 90 mg 2 tab PO BID 12 weeks #336 tabs 03/31/25 Rx tablet,extended release (Contrave) Last Menstrual Period: 05/10/20 Zika: Zika virus screening: Negative : No Have you fallen in the past year?: No PFSH PFSH Medical History History of stress test Cardiology follow-up encounter Hx of kidney disease Endometrial polyp Renal calculus Wears contact lenses Post-menopausal MRSA infection Postmenopausal bleeding Obesity Surgical History History of laparoscopy History of Family History Father No problems noted. 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 pets and animals: Yes leisure activities: other history of recent travel: Yes ([place], [place], [employer]) sexually active: Yes Smoking Status: Never smoker alcohol intake: current substance use type: does not use diet: low carbohydrate and other well-balanced diet: daily or most days caffeine: No what type of physical activity do you participate in: walking, aerobics and weight training frequency: other details: 10,000 steps daily seatbelt use: always do you feel safe at home: Yes 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 Date Name GA/Weeks Outcome Route Bth Weight Gen Labor Lgth Anesthesia Del Locatn Provider JONATAN Unknown 1988- Luisa 24 Unknown 1990-Richard Unknown 1991- Tia Unknown 1992- Larissa Delivery Date: Last Updated by: Millicent Charlton a few hours after - GBS infection HPI 5 wk f/u Details: GENNY NEWMAN is a 60 year old Female presenting for a weight management follow up. She reports she is doing well. Taking contrave 2 tabs twice a day. She is down additional 2 pounds. Has been traveling-this makes it difficult with her fasting as she is not sure when she will be able to eat on her trips. She continues to monitor her BP's at home; they are staying less than 140/90. She has her cuff here today to compare readings. Female Reproductive History Last Menstrual Period: 05/10/20 ROS Const Reports as per HPI, Denies difficulty sleeping, Denies excessive sweating, Denies fatigue (new onset severe) and Denies fever(s) Eyes Denies change in vision and Denies diplopia ENT Denies dizziness Card Denies chest pain, Denies dyspnea, Denies dyspnea on exertion, Denies palpitations and Denies rapid heart rate Resp Denies dyspnea and Denies dyspnea on exertion GI Reports as per HPI, Denies abdominal pain and Denies constipation Neuro No confusion, No dizziness and No memory loss Psych Denies confusion, Denies depression, Denies memory loss, Denies mood swings and Denies suicidal ideation Endo Denies excessive sweating, Denies fatigue (new onset severe), Denies palpitations and Reports other (denies symptoms of hypoglycemia) Exam Const General: cooperative, healthy appearing, comfortable and no acute distress Orientation: alert HENOR Head: normal to inspection and normocephalic Eyes General: appearance normal, both eyes and all related structures Neck Neck: normal visual inspection, no lymphadenopathy and trachea midline Thyroid: thyroid normal Resp Effort Inspection: normal respiratory effort Auscultation: clear to auscultation bilaterally Cardio Rate: regular rate (more content not included)... Normal [facility] Rubeola IgG Abon 03-04-2025 RUBEOLA Ab, IgG > 300.0 Normal Immune >16.4 [facility] Comment on above: Order Comment: Order Date: 02/23/25 Order Info: [id number] - RUBEOG Result Comment: Nega tive <13.5 Equivocal 13.5 - 16.4 Positive >16.4 Presence of antibodies to Rubeola is presumptive evidence of immunity except when acute infection is suspected. Performed at: [address] [id number] [employer] Teacher: Brain Lerma PhD, Phone: [phone] Performed By: #### L [id number] #### [facility] [address] [place] [address], [address] Serum measles virus IgG anti body assay by immunoassay (units/volume)Ordered By: Forest Curtis on 03-02-2025 MeV IgG IA Qn (S) > 300.0 AU/mL Immune >16.4 [facility] Comment on above: Negative <13.5 Equiv ocal 13.5 - 16.4 Positive >16.4Presence of antibodies to Rubeola is presumptive evidenceof immunity except when acute infection is suspected.Performed at: [address] [id number] Director: Brain Lerma PhD, Phone: [phone] Tire Inspector Office Visit Reporton 02-23-2025 Tire Inspector Office Visit Report [facility] [address] [place] [address], [address] [place] [address] OFFICE VISIT Date of Service: 02/23/25 MR#: [id number] Acct: [id number] Name: GENNY NEWMAN Rep #: [id number] : 1965 Provider: MYRNA Santos Age/Sex: 60/F [place] [facility] [place]: Signed Intake Vital Signs 08/30/24 15:16 08/31/24 13:02 12/08/24 02:43 02/23/25 11:30 Height 4 ft 10 in 4 ft 10 in 4 ft 10 in 4 ft 10 in Weight: 146 lb 2 oz BMI 30.5 BP 146/81 H Pulse 73 Intake Visit Reasons: 3 m f/u Optical 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 Required: No Is patient in pain?: No Allergies No Known Allergies Allergy (Verified 02/23/25 11:30) Medications ???Medication ???Instructions ???Recorded ???Confirmed ???Type naltrexone 8 mg-bupropion 90 mg 2 tab PO BID 12 weeks #336 tabs 02/23/25 Rx tablet,extended release (Contrave) ibuprofen 600 mg tablet 600 mg PO Q8H PRN PRN pain #20 02/23/25 Rx TABLETS tamsulosin 0.4 mg capsule 0.4 mg PO DAILY #7 CAPSULES 02/23/25 Rx Last Menstrual Period: 05/10/20 Zika: Zika virus screening: Negative : No Have you fallen in the past year?: No PFSH PFSH Medical History History of stress test Cardiology follow-up encounter Hx of kidney disease Endometrial polyp Renal calculus Wears contact lenses Post-menopausal MRSA infection Postmenopausal bleeding Obesity Surgical History History of laparoscopy History of Family History Father No problems noted. 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 pets and animals: Yes leisure activities: other history of recent travel: Yes ([place], [place], [place]) sexually active: Yes Smoking Status: Never smoker alcohol intake: current substance use type: does not use diet: low carbohydrate and other well-balanced diet: daily or most days caffeine: No what type of physical activity do you participate in: walking, aerobics and weight training frequency: other details: 10,000 steps daily seatbelt use: always do you feel safe at home: Yes 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 Date Name GA/Weeks Outcome Route Bth [facility] Luisa 24 Unknown 1990-Richard Unknown 1991- Tia Unknown 1992- Larissa Delivery Date: Last Updated by: Millicent Delaneyn a few hours after - GBS infection HPI 3 m f/u Details: GENNY NEWMAN is a 60 year old Female presenting for a weight management follow up; has not been seen since August 2024. She is taking Contrave; reports she was previously not taking consistently however more recently has become more consist in taking. States her dosing is 1 tab 4 times a day. Diagnosed with kidney stones in Nov. CT scan for re-evaluation completed yesterday--awaiting final results on this. She has not been doing her IF and has been struggling with cheating. She is however consistent with her exercise and getting 55795 steps consistently each day. Female Reproductive History Last Menstrual Period: 05/10/20 ROS Const Reports as per HPI, Denies difficulty sleeping, Denies excessive sweating, Denies fatigue (new onset severe) and Denies fever(s) Eyes Denies change in vision and Denies diplopia ENT Denies dizziness Card Denies chest pain, Denies dyspnea, Denies dyspnea on exertion, Denies palpitations and Denies rapid heart rate Resp Denies dyspnea and Denies dyspnea on exertion GI Reports as per HPI, Denies abdominal pain and Denies constipation Musc Denies numbness Neuro No confusion, No dizziness, No memory loss and No numbness Psych Denies confusion, Denies depression, Denies memory loss, Denies mood swings and Denies suicidal ideation Endo Denies excessive sweating, Denies fatigue (new onset severe), Denies palpitations and Reports other (denies symptoms of hypoglycemia) Exam Const General: cooperative, healthy appearing, comfortable and no acute distress Orientation: alert [facility] Head: normal to inspection and normocephalic Eyes General: appearance normal, both eyes and all related structures Neck Neck: normal v (more content not included)... Normal [facility] Abdomen/Pelvis without Conto n 02-21-2025 Abdomen/Pelvis without Cont [facility] Imaging Services [address] [place], [place] [address] Abdomen/Pelvis without Cont MR#: [id number] Acct: [id number] Name: GENNY NEWMAN Rep #: [id number] : 1965 F 60 From: Damian samuel MD PCP: Dr. Forest Curtis MD Status: REG CLI Study: Abdomen/Pelvis without Cont Date of Exam: 02/10 12/07 Exam# [id number] Ordering Dr: Uma Graham MD PROCEDURE: ABDOMEN/PELVIS WITHOUT CONT 02/21/2025 REASON FOR EXAM: URETERAL STONE No pain at this time. TECHNIQUE: Abdomen and pelvis CT without intravenous contrast. Noncontrast technique limits evaluation of the abdominal and pelvic viscera. Coronal and Sagittal reconstruction series were provided. One or more dose reduction techniques were used (e.g., Automated exposure control, adjustment of the mA and/or kV according to patient size, use of iterative reconstruction technique). PATIENT PREPARATION: Per protocol ORAL CONTRAST TYPE: None. CT DLP volume: 8.97 mGy. DLP: 432.94 COMPARISON: Prior study dated December 08, 2024. FINDINGS: Lung bases: Unremarkable Liver: Normal size. No obvious mass. Gallbladder: Once again, there is evidence of soft tissue density in the fundus of the gallbladder suggestive of possible tumefactive sludge. Spleen: Normal size. Pancreas: Normal size. No surrounding inflammation. Adrenals: Unremarkable Kidneys: There is a 2 mm nonobstructive calculus in the posterior calyx of the upper pole of the right kidney. A 3 mm calculus is seen in the lower pole calyx of the right kidney. Punctate nonobstructive calculus in the upper pole of the left kidney. Punctate nonobstructive calculus in the lower pole of the left kidney. Bladder: Unremarkable Reproductive Organs: Stable bilateral predominantly cystic lesions in the ovaries more prominent on the right side. Correlation with ultrasound recommended. Bowel: Colonic diverticulosis without diverticulitis. Appendix: The appendix is not identified. There is no inflammatory process identified in the right lower quadrant to suggest appendicitis. Lymph nodes: Unremarkable. Vasculature: The abdominal aorta and IVC contours are normal. Noncontrast technique limits evaluation. Peritoneum / Retroperitoneum: Unremarkable Bones: Once again, there is evidence of minimal anterior listhesis of L5 on S1 with the spondylolysis of the pars interarticularis of the L5 vertebrae. CT/Abdomen/Pelvis without Cont IMPRESSION: Stable small bilateral nonobstructive intrarenal calculi. No evidence of hydronephrosis at this time. The remainder of the examination is unchanged. OVERALL FINAL ASSESSMENT: . LI-RADS is not meant to be used in patients <18 years or patients with cirrhosis due to congenital hepatic fibrosis or due to vascular disorders, because these patients have a lower chance of developing HCC. Reading Location: [id number] CC: Dr. Uma Graham MD; Dr. Forest Curtis MD Product Support Representative: Signed Normal [facility] Abdomen/Pelvis without Conto n 12-08-2024 Abdomen/Pelvis without Cont [facility] Imaging Services [address] [place] [address] Abdomen/Pelvis without Cont MR#: [id number] Acct: [id number] Name: GENNY NEWMAN Rep #: [id number] : 1965 F 59 From: Mayo Petersen MD PCP: Dr. Forest Curtis MD Status: REG ER Study: Abdomen/Pelvis without Cont Date of Exam: 11/14 04/06 Exam# [id number] Ordering Dr: Montez Nance DO PROCEDURE: ABDOMEN/PELVIS WITHOUT CONT REASON FOR EXAM: Right flank pain TECHNIQUE: Abdomen and pelvis CT without intravenous contrast. Coronal and sagittal reformatted images COMPARISON: None. FINDINGS: Noncontrast technique limits evaluation of the abdominal and pelvic viscera. Lung bases: Clear Liver: Unremarkable. Gallbladder: Lobular soft tissue focus at the fundus for example axial 71 and sagittal 44 which may represent sludge within a Phrygian cap with gallbladder lesion not excluded and requires further evaluation with follow-up ultrasound. Spleen: Unremarkable. Pancreas: Unremarkable. Adrenals: Unremarkable. Kidneys: 2 small nonobstructing right intrarenal stones. 2 mm right UVJ stone with mild right hydroureteronephrosis and mild right perinephric stranding. Based on size likely with spontaneously passed. No left hydronephrosis.. Bladder: See above. Reproductive Organs: 3.4 cm lesion in the right adnexa axial 115 is not clearly cystic and can not exclude a solid or hemorrhagic lesion and requires follow-up further characterization with ultrasound 2.6 cm cystic focus left ovary can also be further characterized/evaluated at pelvic ultrasound.. Bowel: Unremarkable. Appendix: Normal caliber without secondary signs. Lymph nodes: No suspicious lymph node enlargement. Vasculature: Major vascular structures are unremarkable. Peritoneum / Retroperitoneum: No ascites. No free air. Small fat containing lower midline ventral hernia axial 132 and sagittal 70 Bones: Bilateral nonacute L5 spondylolysis with severe disc space narrowing, [id number] contact, degenerative endplate changes, mild anterolisthesis L5 on S1 and bilateral foraminal narrowing. CT/Abdomen/Pelvis without Cont IMPRESSION: 2 mm right UVJ stone with mild right hydroureteronephrosis and mild right perinephric stranding as above. A couple of small nonobstructing right intrarenal stones. Findings at the fundus of the gallbladder as above requires follow-up ultrasound to further evaluate for possible gallbladder lesion. Bilateral ovarian/adnexal lesions as above require further characterization with pelvic ultrasound as above. Bilateral nonacute L5 spondylolysis with associated degenerative changes as above. One or more dose reduction techniques were used (e.g., Automated exposure control, adjustment of the mA and/or kV according to patient size, use of iterative reconstruction technique). Reading Location: [id number] CC: Dr. Montez Nance, DO; Dr. Forest Curtis MD Product Support Representative: Signed Normal [facility] Absolute lymphocyte countOrd ered By: Montez Nance on 12-08-2024 Lymphocytes Auto (Unsp spec) [#/Vol] 3.52 10*3/uL 0.83-4.51 [facility] Absolute neutrophil countOrd ered By: Montez Nance on 12-08-2024 Neutrophils (Bld) [#/Vol] 7.7 10*3/uL 2.0-7.7 [facility] Automated lymphocyte count a s percentage of total leukocytesOrdered By: Montez Nance on 12-08-2024 Lymphocytes/100 WBC Auto (Unsp spec) 28.9 % -41 [facility] BUN/creatinine ratioOrdered By: Montez Nance on 12-08-2024 Urea nitrogen/Creatinine [Mass ratio] 19.0 mg/mg 10- [facility] Basic Metabolic Profile (BMP )on 12-08-2024 Anion gap [Moles/Vol] 16 mmol/L High 5-15 [facility] Comment on above: Performed By: #### L 100.0100, L500.2500 #### [facility] [address] [place], [address] BUN/CRE 19.0 RATIO Normal - [facility] Comment on above: Performed By: #### L 100.0100, L500.2500 #### [facility] [address] [place], [address] Calcium [Mass/Vol] 9.7 mg/dL Normal 7.6-11.0 [facility] Comment on above: Performed By: #### L 100.0100, L500.2500 #### [facility] [address] [place], [address] Chloride [Moles/Vol] 104 mmol/L Normal 96-108 [facility] Comment on above: Performed By: #### L 100.0100, L500.2500 #### [facility] [address] [place], [address] CO2 [Moles/Vol] 20.2 mmol/L Low 22.0-29.0 [facility] Comment on above: Performed By: #### L 100.0100, L500.2500 #### [facility] [address] [place], [address] Creatinine [Mass/Vol] 1.1 mg/dL High 0.6-1.0 [facility] Comment on above: Performed By: #### L 100.0100, L500.2500 #### [facility] [address] [place], [address] ECRCL 46.77 ml/min Normal [facility] Comment on above: Performed By: #### L 100.0100, L500.2500 #### [facility] [address] [place], [address] GFR/1.73 sq M.predicted among non-blacks MDRD (S/P/Bld) [Vol rate/Area] 57 mL/min/{1.73_m2} Low >60 [facility] Comment on above: Result Comment: mL/m in/1.73m2 CKD-EPI Creatinine Equation (2020) Performed By: #### L 100.0100, L500.2500 #### [facility] [address] [place], [address] Glucose [Mass/Vol] 164 mg/dL High 70-99 [facility] Comment on above: Performed By: #### L 100.0100, L500.2500 #### [facility] [address] [place], [address] Potassium [Moles/Vol] 3.9 mmol/L Normal 3.3-5.1 [facility] Comment on above: Performed By: #### L 100.0100, L500.2500 #### [facility] [address] [place], [address] Sodium [Moles/Vol] 139 mmol/L Normal 133-145 [facility] Comment on above: Performed By: #### L 100.0100, L500.2500 #### [facility] [address] [place], [address] Urea nitrogen [Mass/Vol] 21 mg/dL High 4-19 [facility] Comment on above: Performed By: #### L 100.0100, L500.2500 #### [facility] [address] [place], [address] Basophil percentageOrdered B y: Montez Cortésashlyn on 12-08-2024 Basophils/100 WBC (Bld) 0.7 % 0-1 [facility] Bilirubin Test strip Ql (U)O rdered By: Montez Goyo on 12-08-2024 Bilirubin Ql (U) Negative Negative [facility] CBC W/Diff, Automatedon 11-14 Absolute Lymph 3.52 X10 3/uL Normal 0.83-4.51 [facility] Comment on above: Performed By: #### L 100.0100, L500.2500 #### [facility] [address] [place], [address] Absolute Neut 7.7 X10 3/uL Normal 2.0-7.7 [facility] Comment on above: Performed By: #### L 100.0100, L500.2500 #### [facility] [address] [place], [address] Basophils/100 WBC (Bld) 0.7 % Normal 0-1 [facility] Comment on above: Performed By: #### L 100.0100, L500.2500 #### [facility] [address] [place], [address] Eosinophils/100 WBC (Bld) 1.3 % Normal 0-5 [facility] Comment on above: Performed By: #### L 100.0100, L500.2500 #### [facility] [address] [place], [address] Erythrocyte distribution width (RBC) [Ratio] 12.8 % Normal 11.6-14.6 [facility] Comment on above: Performed By: #### L 100.0100, L500.2500 #### [facility] [address] [place], [address] Hematocrit (Bld) [Volume fraction] 40.1 % Normal 37-47 [facility] Comment on above: Performed By: #### L 100.0100, L500.2500 #### [facility] [address] [place], [address] Hemoglobin (Bld) [Mass/Vol] 13.4 g/dL Normal 12.0-15.0 [facility] Comment on above: Performed By: #### L 100.0100, L500.2500 #### [facility] [address] [place], [address] IG% 0.600 Normal 0.0-0.9 [facility] Comment on above: Result Comment: IG% - Immature Granulocytes (promyelocytes, myelocytes and metamyelocytes) > 1% indicates that a LEFT SHIFT is Present. Performed By: #### L 100.0100, L500.2500 #### [facility] [address] [place], [address] Lymphocytes/100 WBC (Bld) 28.9 % Normal 19-41 [facility] Comment on above: Performed By: #### L 100.0100, L500.2500 #### [facility] [address] [place], [address] MCH (RBC) [Entitic mass] 29.1 pg Normal 27.0-32.0 [facility] Comment on above: Performed By: #### L 100.0100, L500.2500 #### [facility] [address] [place], [address] MCHC (RBC) [Mass/Vol] 33.4 g/dL Normal 32-36 [facility] Comment on above: Performed By: #### L 100.0100, L500.2500 #### [facility] [address] [place], [address] MCV (RBC) [Entitic vol] 87.2 fL Normal 81-99 [facility] Comment on above: Performed By: #### L 100.0100, L500.2500 #### [facility] [address] [place], [address] Monocytes/100 WBC (Bld) 5.3 % Normal 0-10 [facility] Comment on above: Performed By: #### L 100.0100, L500.2500 #### [facility] [address] [place], [address] Neutrophils/100 WBC (Bld) 63.2 % Normal 47-70 [facility] Comment on above: Performed By: #### L 100.0100, L500.2500 #### [facility] [address] [place], [address] Nucleated RBC (Bld) [#/Vol] 0 10*3/uL Normal 0-5 [facility] Comment on above: Performed By: #### L 100.0100, L500.2500 #### [facility] [address] [place], [address] Platelet mean volume (Bld) [Entitic vol] 9.0 fL Normal 6.2-12.0 [facility] Comment on above: Performed By: #### L 100.0100, L500.2500 #### [facility] [address] [place], [address] Platelets (Bld) [#/Vol] 237 10*3/uL Normal 150-450 [facility] Comment on above: Performed By: #### L 100.0100, L500.2500 #### [facility] [address] [place], [address] RBC (Bld) [#/Vol] 4.60 10*6/uL Normal 4.2-5.4 [facility] Comment on above: Performed By: #### L 100.0100, L500.2500 #### [facility] [address] [place], [address] RDW SD 40.7 fl Normal 35.1-43.9 [facility] Comment on above: Performed By: #### L 100.0100, L500.2500 #### [facility] [address] [place], [address] WBC (Bld) [#/Vol] 12.2 10*3/uL High 4.4-11.0 [facility] Comment on above: Performed By: #### L 100.0100, L500.2500 #### [facility] [address] [place], [address] Carbon dioxide measurementOr dered By: Montez Nance on 12-08-2024 CO2 [Moles/Vol] 20.2 mmol/L Low 22.0-29.0 [facility] Chloride measurementOrdered By: Montez Nance on 12-08-2024 Chloride [Moles/Vol] 104 mmol/L 96-108 [facility] Emergency Department Summary on 12-08-2024 Emergency Department Summary [facility] Medical Records Department [address] [place] [address] Emergency Department Summary 12/08/24 MR#: [id number] Acct: [id number] Name: GENNY NEWMAN Rep #: [id number] : 1965 59 From: Montez Nance DO PCP: Dr. Forest Curtis MD Status:DEP ER Location: ED HPI History of Present Illness Chief Complaint: Flank Pain Informant: patient Onset/Context/Timing Onset: Hours (1.5) Context: Sudden Onset Timing: Continuous Quality: Stabbing, pressure Location: Right flank Worsened by: Nothing Relieved by: Vomiting Narrative Narrative: Patient presents with right flank pain that began approximate 1-1/2 hours prior to arrival. Patient states it began rather suddenly. Patient describes it as stabbing and pressure. Patient states it is localized to the right flank. Patient states she did feel somewhat better after vomiting. Patient states nothing else makes it better nothing makes it worse. Patient denies any fevers or chills. Patient denies any chest pain or shortness of breath. Patient denies any dysuria, frequency, or hematuria. Prior similar symptoms: Yes (With kidney stones) PFSH PFS Medical History History of stress test Cardiology follow-up encounter Hx of kidney disease Endometrial polyp Renal calculus Wears contact lenses Post-menopausal MRSA infection Postmenopausal bleeding Obesity Home Medications ???Medication ???Instructions ???Recorded ???Last Taken ???Type naltrexone 8 mg-bupropion 90 mg 2 tab PO BID 12 weeks #336 tabs Unknown Rx tablet,extended release (Contrave) ibuprofen 600 mg tablet 600 mg PO Q8H PRN PRN pain #20 Unknown Rx TABLETS tamsulosin 0.4 mg capsule 0.4 mg PO DAILY #7 CAPSULES Unknown Rx Allergy/AdvReac Type Severity Reaction Status Date / Time No Known Allergies Allergy Verified 12/08/24 02:48 Family History Father No problems noted. 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 pets and animals: Yes leisure activities: other history of recent travel: Yes ([place], [place], [place]) sexually active: Yes Smoking Status: Never smoker alcohol intake: current substance use type: does not use diet: low carbohydrate and other well-balanced diet: daily or most days caffeine: No what type of physical activity do you participate in: walking, aerobics and weight training frequency: other details: 10,000 steps daily seatbelt use: always do you feel safe at home: Yes 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 KAMILA TREVIÑO ED Constitutional Constitutional ED: Denies chills or fever(s) Eyes Eyes: Denies blurry vision or change in vision ENT ENT ED: Denies rhinorrhea or sore throat Cardiovascular Cardiovascular: Denies chest pain or palpitations Respiratory/Chest Respiratory/Chest: Denies cough or dyspnea Gastrointestinal Gastrointestinal: Reports abdominal pain, nausea and vomiting Genitourinary Genitourinary ED: Denies dysuria or hematuria Musculoskeletal Musculoskeletal: Reports back pain; Denies neck pain Integumentary Denies abscess or rash Neurologic Neurologic: Denies headache(s) or weakness Allergic/Immunologic Allergic/Immunologic ED: Denies mouth swelling or urticaria EXAM Physical Exam Const Vital Signs: 12/08/24 02:43 12/08/24 04:38 Temperature 98.6 F Temperature Source Oral Pulse Rate 78 62 Respiratory Rate 18 18 Blood Pressure 170/97 H 179/85 H Blood Pressure Mean 121 116 Pulse Ox 99 100 Oxygen Delivery Method Room Air Room Air Positive well nourished and well developed General Appearance ED: well developed and NAD HEENT Reports moist mucous membranes Neck supple and no JVD Resp normal respiratory effort and clear to auscultation bilaterally Cardio regular rate and regular rhythm GI non-distended Palpation: soft and tender RLQ, RUQ and suprapubic Back/Spine General Back: CVA tenderness right Neuro oriented x3, CN's II-XII intact bilaterally and no sensory deficits noted Sensorium / Orientation: alert Motor Exam: strength 5/5 throughout Psych mental status grossly normal MDM MDM MDM Narrative Medical decision making narrative: Differential diagnosis includes ureteral calculus, pyelonephritis, urinary tract infection, appendicitis, mesenteric adenitis, and ga (more content not included)... Normal [facility] Eosinophil percentageOrdered By: Montez Nance on 12-08-2024 Eosinophils/100 WBC (Bld) 1.3 % 0-5 [facility] Erythrocyte distribution wid th ratioOrdered By: Montez Nance on 12-08-2024 Erythrocyte distribution width (RBC) [Ratio] 12.8 % 11.6-14.6 [facility] Erythrocyte distribution wid th standard deviationOrdered By: Montez Nnace on 12-08-2024 Erythrocyte distribution width (RBC) [Ratio] 40.7 fl 35.1-43.9 [facility] Glomerular filtration rate ( GFR) estimation/1.73 sq m using serum, plasma, or whole bOrdered By: Montez Nance on 12-08-2024 GFR/1.73 sq M.predicted among non-blacks MDRD (S/P/Bld) [Vol rate/Area] 57 mL/min/{1.73_m2} Low >60 [facility] Comment on above: mL/min/1.73m2 CKD-EP I Creatinine Equation (2020) Hematocrit Auto (Bld) [Volum e fraction]Ordered By: Montez Nance on 12-08-2024 Hematocrit (Bld) [Volume fraction] 40.1 % 37-47 [facility] Hemoglobin measurementOrdere d By: Montez Nance on 12-08-2024 Hemoglobin (Bld) [Mass/Vol] 13.4 g/dL 12.0-15.0 [facility] Immature granulocytes/100 WB C Auto (Bld)Ordered By: Montez Nance on 12-08-2024 Immature granulocytes/100 WBC (Bld) 0.600 % 0.0-0.9 [facility] Comment on above: IG% - Immature Granu locytes (promyelocytes, myelocytes and metamyelocytes) > 1% indicates that a LEFT SHIFT is Present. Ketones Test strip Ql (U)Ord ered By: Montez Nance on 12-08-2024 Ketones Ql (U) Negative Negative [facility] MCV (mean corpuscular volume ) determinationOrdered By: Montez Nance on 12-08-2024 MCV (RBC) [Entitic vol] 87.2 fL 81-99 [facility] Mean corpuscular hemoglobin (MCH) determinationOrdered By: Montez Nance 12-08-2024 MCH (RBC) [Entitic mass] 29.1 pg 27.0-32.0 [facility] Mean corpuscular hemoglobin concentration (MCHC) determinationOrdered By: Montez Nance on 12-08-2024 MCHC (RBC) [Mass/Vol] 33.4 g/dL 32-36 [facility] Mean platelet volume determi nationOrdered By: Montez Nance on 12-08-2024 Platelet mean volume (Bld) [Entitic vol] 9.0 fL 6.2-12.0 [facility] Microscopic analysis of urin e for red blood cells (RBC)Ordered By: Montez Nance on 12-08-2024 Microscopic analysis of urine for red blood cells (RBC) 5-10 SEEN /hpf 0-5 [facility] Monocyte percentageOrdered B y: Montez Nance on 12-08-2024 Monocytes/100 WBC (Bld) 5.3 % 0-10 [facility] Mucus LM Ql (Urine sed)Order ed By: Montez Nance on 12-08-2024 Mucus Ql (Urine sed) 0 SEEN /hpf [facility] Neutrophil percentageOrdered By: Montez Nance on 12-08-2024 Neutrophils/100 WBC (Bld) 63.2 % 47-70 [facility] Nitrite Test strip Ql (U)Ord ered By: Montez Nance on 12-08-2024 Nitrite Ql (U) Negative Negative [facility] Nucleated red blood cell per centageOrdered By: Montez Nance on 12-08-2024 Nucleated RBC/100 WBC (Bld) [Ratio] 0 % 0-5 [facility] Platelet countOrdered By: Regino Nance on 12-08-2024 Platelets (Bld) [#/Vol] 237 10*3/uL 150-450 [facility] Protein Test strip Ql (U)Ord ered By: Montez Nance on 12-08-2024 Protein Ql (U) 15 mg/dl High Negative [facility] RBC Auto (Bld) [#/Vol]Ordere d By: Montez Nance on 12-08-2024 RBC (Bld) [#/Vol] 4.60 10*6/uL 4.2-5.4 [facility] Serum glucose measurement (m ass/volume)Ordered By: Montez Nance on 12-08-2024 Glucose [Mass/Vol] 164 mg/dL High 70-99 [facility] Serum or plasma anion gap de termination (moles/volume)Ordered By: Montez Nance on 12-08-2024 Anion gap [Moles/Vol] 16 mmol/L High 5-15 [facility] Serum or plasma calcium tico urement (mass/volume)Ordered By: Montez Nance on 12-08-2024 Calcium [Mass/Vol] 9.7 mg/dL 7.6-11.0 [facility] Serum or plasma creatinine m easurement (moles/volume)Ordered By: Montez Nance on 12-08-2024 Creatinine [Moles/Vol] 1.1 mg/dL High 0.6-1.0 [facility] Serum or plasma potassium me asurementOrdered By: Montez Nance on 12-08-2024 Potassium [Moles/Vol] 3.9 mmol/L 3.3-5.1 [facility] Serum or plasma sodium measu rement (moles/volume)Ordered By: Montez Nance on 12-08-2024 Sodium [Moles/Vol] 139 mmol/L 133-145 [facility] Serum or plasma urea nitroge n measurement (mass/volume)Ordered By: Montez Nance on 12-08-2024 Urea nitrogen [Mass/Vol] 21 mg/dL High 4-19 [facility] Squamous epithelial cells de tection in urine sediment by light microscopyOrdered By: Montez Nance on 12-08-2024 Epithelial cells.squamous LM Ql (Urine sed) 0 SEEN /hpf 5-10 [facility] Urinalysis, Completeon 12-08 RBC 5-10 SEEN Normal 0-5 [facility] Comment on above: Order Comment: CLEAN CATCH Performed By: #### L 400.0001 ####[facility] [address] [place], [place], [id number] WBC 0-5 SEEN Normal 0-5 [facility] Comment on above: Order Comment: CLEAN CATCH Performed By: #### L 400.0001 ####[facility] [address] [place], [place], [id number] BACTERIA 0 SEEN Normal None Seen [facility] Comment on above: Order Comment: CLEAN CATCH Performed By: #### L 400.0001 ####[facility] [address] [place], [place], [id number] EPI,SQUAMOUS 0 SEEN Normal 5-10 [facility] Comment on above: Order Comment: CLEAN CATCH Performed By: #### L 400.0001 ####[facility] [address] [place], [place], [address] Mucus Ql (Urine sed) 0 SEEN Normal [facility] Comment on above: Order Comment: CLEAN CATCH Performed By: #### L 400.0001 ####[facility] [address] [place], [place], [id number] Urine clarityOrdered By: Chelo Nance on 12-08-2024 Clarity (U) Clear Clear [facility] Urine color determinationOrd ered By: Montez Nance on 12-08-2024 Color (U) Yellow Yellow [facility] Urine glucose detectionOrder ed By: Montez Nance on 12-08-2024 Glucose Ql (U) Normal mg/dl Normal [facility] Urine leukocyte esterase det ection by dipstickOrdered By: Montez Nance on 12-08-2024 Leukocyte esterase Test strip Ql (U) 100 /ul High Negative [facility] Urine pHOrdered By: Montez garland on 12-08-2024 pH (U) 6.0 [pH] 5.0 - 8.0 [facility] Urine sediment bacteria coun t by microscopy (number/high power field)Ordered By: Montez Nance on 12-08-2024 Bacteria LM.HPF (Urine sed) [#/Area] 0 /[HPF] None Seen [facility] Urine specific gravity measu rementOrdered By: Montez Nance on 12-08-2024 Specific gravity (U) [Rel density] 1.020 1.002-1.030 [facility] Urine urobilinogen measureme ntOrdered By: Montez Nance on 12-08-2024 Urobilinogen Ql (U) Normal mg/dl Normal [facility] White blood cell (WBC) count Ordered By: Montez Nance on 12-08-2024 WBC (Bld) [#/Vol] 12.2 10*3/uL High 4.4-11.0 [facility] White blood cell countOrdere d By: Montez Nance on 02-26-2025 White blood cell count 0-5 SEEN /hpf 0-5 [facility] Hemoglobin A1con 09-13-2024 HbA1c (Bld) [Mass fraction] 5.9 % High 3.8-5.6 [facility] Comment on above: Result Comment: Norm al < 5.7 % Prediabetic 5.7 - 6.4 % Diabetic >or= 6.5 % Please note range changes. Performed By: #### L 500.4100, L501.9520, L501.9985 #### [facility] [address] [place], [address] Lipid Profileon 09-13-2024 Cholesterol [Mass/Vol] 213 mg/dL High 200 [facility] Comment on above: Result Comment: <200 mg/dL Desirable 200-240 mg/dL Borderline >240 mg/dL High Risk Performed By: #### L 500.4100, L501.9520, L501.9985 #### [facility] [address] [place], [address] Cholesterol in HDL [Mass/Vol] 68 mg/dL Normal [facility] Comment on above: Result Comment: The drugs N-Acetylcysteine and Metamizole may falsely depress this assay. Reference Range HDL <40 mg/dL Low HDL Cholesterol HDL >or= 60 mg/dL High HDL Cholesterol Performed By: #### L 500.4100, L501.9520, L501.9985 #### [facility] [address] [place], [address] Cholesterol in LDL [Mass/Vol] 117 mg/dL Normal 0-130 [facility] Comment on above: Performed By: #### L 500.4100, L501.9520, L501.9985 #### [facility] [address] [place], [address] Cholesterol in VLDL [Mass/Vol] 28 mg/dL Normal 5-40 [facility] Comment on above: Performed By: #### L 500.4100, L501.9520, L501.9985 #### [facility] [address] [place], [place], [id number] Triglyceride [Mass/Vol] 138 mg/dL Normal [facility] Comment on above: Result Comment: The drugs N-Acetylcysteine and Metamizole may falsely depress this assay. Serum Triglycerides Reference Interval Normal <150 mg/dL Borderline high 150 - 199 mg/dL High 200 - 499 mg/dL Very High > or = 500 mg/dL Performed By: #### L 500.4100, L501.9520, L501.9985 #### [facility] [address] [place], [place], [id number] T4 Free Directon 09-13-2024 T4 FREE DIRECT 0.85 ng/dL Normal 0.76-1.46 [facility] Comment on above: Performed By: #### L 506.0400 #### [facility] [address] [place], [place], [id number] Thyroid Stim Hormone (TSH)on 09-13-2024 TSH 4.110 uIU/mL High 0.358-3.740 [facility] Comment on above: Performed By: #### L 500.4100, L501.9520, L501.9985 #### [facility] [address] [place], [place], [id number] Urine Cultureon 09-02-2024 [facility] Mixed Gram Pos Gram Neg Org Slovan Count 50,000-80,000 MIXC Mixed contaminants. Submit a new specimen if indicated. Normal [facility] Comment on above: Performed By: #### M 100.2200 ####[facility] [address] [place], [place], [id number] Urgent Care Visit Reporton 10-31-2023 Urgent Care Visit Report [facility] [address], [address] [place], [place] [address] OFFICE VISIT Date of Service: 08/31/24 MR#: [id number] Acct: [id number] Name: GENNY NEWMAN Rep #: [id number] : 1965 Provider: SASHA Goyal Age/Sex: 59/F Location: [facility] Status: Signed Intake Vital Signs 08/30/24 15:16 08/31/24 13:02 Height 4 ft 10 in 4 ft 10 in Weight: 141 lb 5 oz 139 lb BMI 29.5 29.0 BP 137/84 H 148/96 H Blood Pressure Location Rt brachial Position Sitting Respiration 18 Pulse 74 73 Pulse Source Monitor Temp 98.1 F Temp Source Oral Pulse Oximetry (%) 98 Oxygen Delivery Method room air Intake Visit Reasons: CONCERN FOR UTI Chief Complaint: Cocerrn for UTI Optical 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 Required: No Is patient in pain?: Yes Allergies No Known Allergies Allergy (Verified 08/31/24 13:03) Medications ???Medication ???Instructions ???Recorded ???Confirmed ???Type naltrexone 8 mg-bupropion 90 mg 2 tab PO BID 12 weeks #336 tabs 05/04/24 08/31/24 Rx tablet,extended release (Contrave) nitrofurantoin 100 mg PO Q12H 5 days #10 caps 08/31/24 08/31/24 Rx monohydrate/macrocrystal s 100 mg capsule (Macrobid) Nurse's Note: Started with UTI symptoms this morning and also pain in lower back. Has had previous kidney stones. PFSH Medical History History of stress test Cardiology follow-up encounter Hx of kidney disease Endometrial polyp Renal calculus Wears contact lenses Post-menopausal MRSA infection Postmenopausal bleeding Obesity Surgical History History of laparoscopy History of Family History Father No problems noted. 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 pets and animals: Yes leisure activities: other history of recent travel: Yes ([place], [place], [place]) sexually active: Yes Smoking Status: Never smoker alcohol intake: current substance use type: does not use diet: low carbohydrate and other well-balanced diet: daily or most days caffeine: No what type of physical activity do you participate in: walking, aerobics and weight training frequency: other details: 10,000 steps daily seatbelt use: always do you feel safe at home: Yes 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 No complaints of fever, chills, sweats, lightheadedness/dizzines s, nausea/vomiting, or chest pain/shortness of breath/dyspnea on exertion/back pain. No changes in color/ character of urine or stool; no urethral/ vaginal discharge. No jcsn-aep-ogavzzg products taken to assist. No other associated symptoms and no alleviating/aggravating factors. ROS Const Constitutional: No other (As above) Exam Const General: cooperative, healthy appearing and no acute distress Orientation: alert, awake and oriented x3 Chest Chest palpation inspection: normal inspection of the chest Resp Effort Inspection: normal respiratory effort and able to speak in complete sentences Auscultation: Bilateral: Clear to Auscultation Cardio Palpation: normal PMI Rate: regular rate Rhythm: regular rhythm Heart Sounds: S1 normal, S2 normal, no gallops, no murmurs and no rubs Pulses: radial pulses present GI Inspection: normal to inspection Palpation: soft and tender suprapubic (Patient describes upon self-palpation) General: No CVA tenderness Skin General: no rashes or lesions noted Neuro General: patient alert, patient awake and patient oriented x3 Cognition: normal cognition Speech: speech normal Psych Appearance: grossly normal Mental Status: mental status grossly normal Mood: congruent mood Affect: normal affect Speech and Movement: speech and movement normal Attitude: cooperative Diagnoses Urinary tract infection N39.0 Assessment and Plan Assessment and Plan (1) Urinary tract infection: Status: Acute Plan: See POC results; urine sent to lab for UA and C/S. Macrobid as prescribed today. Supportive measures as instructed today. Follow-up with PCP first available appointment for reassessment of uncontrolled asymptomatic hypertension, sooner should symptoms only worsen or any other concerns develop. Patient states acknowledging un (more content not included)... Normal [facility] Tire Inspector Office Visit Reporton 08-30-2024 Tire Inspector Office Visit Report [facility] [address], [address] [place] [address] OFFICE VISIT Date of Service: 08/30/24 MR#: [id number] Acct: [id number] Name: GENNY NEWMAN Rep #: [id number] : 1965 Provider: Dr. Moon jara MD Age/Sex: 59/F [place] [facility] [place] Status: Signed Intake Vital Signs 05/24/24 14:40 08/30/24 15:16 Height 4 ft 10 in 4 ft 10 in Weight: 139 lb 141 lb 5 oz BMI 29.0 29.5 BP 132/84 H 137/84 H Pulse 69 74 Intake Visit Reasons: 3 M FU Optical 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 Required: No Is patient in pain?: No Allergies No Known Allergies Allergy (Verified 08/31/24 13:03) Medications ???Medication ???Instructions ???Recorded ???Confirmed ???Type naltrexone 8 mg-bupropion 90 mg 2 tab PO BID 12 weeks #336 tabs 09/06/24 09/06/24 Rx tablet,extended release (Contrave) Last Menstrual Period: 05/10/20 Zika: Zika virus screening: Negative : No Have you fallen in the past year?: No PFSH PFSH Medical History History of stress test Cardiology follow-up encounter Hx of kidney disease Endometrial polyp Renal calculus Wears contact lenses Post-menopausal MRSA infection Postmenopausal bleeding Obesity Surgical History History of laparoscopy History of Family History Father No problems noted. 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 pets and animals: Yes leisure activities: other history of recent travel: Yes ([place], [place], [place]) sexually active: Yes Smoking Status: Never smoker alcohol intake: current substance use type: does not use diet: low carbohydrate and other well-balanced diet: daily or most days caffeine: No what type of physical activity do you participate in: walking, aerobics and weight training frequency: other details: 10,000 steps daily seatbelt use: always do you feel safe at home: Yes 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 Date Name GA/Weeks Outcome Route Bth Weight Infant Gen Labor Lgth Anesthesia Del Locatn Provider JONATAN Unknown 1988- Luisa 24 Unknown 1990-Richard Unknown 1991- Tia Unknown 1992- Larissa Delivery Date: Last Updated by: Millicent Charlton a few hours after - GBS infection HPI 3 M FU Details: GENNY NEWMAN is a 59 year old Female presenting for a weight management follow up. normal bp yesterday, borderline elevated today. is starting to see weight go up a little bit she feels like although she is down here. overlal doing well and hasn't changed anything. Appetite controlled and cravigns controlled, decent motivation. open to trying another medication because she does want to lose a little more weight yet. see weight management questionnaire answers for additional HPI details. all information was reviewed with the patient and confirmed, relevant counseling provided, and any changes to treatment plan made. Female Reproductive History Last Menstrual Period: 05/10/20 ROS Const Reports as per HPI, Denies difficulty sleeping, Denies excessive sweating, Denies fatigue (new onset severe) and Denies fever(s) Eyes Denies change in vision and Denies diplopia ENT Denies dizziness Card Denies chest pain, Denies dyspnea, Denies dyspnea on exertion, Denies palpitations and Denies rapid heart rate Resp Denies dyspnea and Denies dyspnea on exertion GI Reports as per HPI, Denies abdominal pain and Denies constipation Musc Denies numbness Neuro No confusion, No dizziness, No memory loss and No numbness Psych Denies confusion, Denies depression, Denies memory loss, Denies mood swings and Denies suicidal ideation Endo Denies excessive sweating, Denies fatigue (new onset severe), Denies palpitations and Reports other (denies symptoms of hypoglycemia) Exam Const General: cooperative, healthy appearing, comfortable and no acute distress Orientation: alert HENOR Head: normal to inspection and normocephalic Eyes General: appearance normal, both eyes and all related structures Neck Neck: normal visual inspection, no lymphadenopathy and trachea midline Thyroid: thyroid normal Resp Effort Inspection: normal respiratory effort Auscultation: c (more content not included)... Normal [facility] Absolute lymphocyte countOrd ered By: Moon Slater on 02-02-2024 Lymphocytes Auto (Unsp spec) [#/Vol] 2.84 10*3/uL 0.83-4.51 [facility] Automated lymphocyte count a s percentage of total leukocytesOrdered By: Moon Slater on 02-02-2024 Lymphocytes/100 WBC Auto (Unsp spec) 36.7 % 19-41 [facility] Basophil percentageOrdered B y: Moon Slater on 02-02-2024 Basophils/100 WBC (Bld) 0.5 % 0-1 [facility] Eosinophils/100 WBC (Bld) 1.9 % 0-5 [facility] Hemoglobin (Bld) [Mass/Vol] 12.5 g/dL 12.0-15.0 [facility] Monocytes/100 WBC (Bld) 9.6 % 0-10 [facility] Neutrophils (Bld) [#/Vol] 3.9 10*3/uL 2.0-7.7 [facility] Neutrophils/100 WBC (Bld) 50.9 % 47-70 [facility] WBC (Bld) [#/Vol] 7.7 10*3/uL 4.4-11.0 [facility] Cervical or vaginal specimen microscopic examination by liquid based cytology (reportOrdered By: Moon Slater on 02-02-2024 Cytology report Cyto stain.thin prep Doc (Cvx/Vag) Comment . [facility] Comment on above: Criteria not met, HP V Genotype not performed.Performed at: [address] [id number] Director: Yakelin Neal MD, Phone: [phone] at: =[address] [id number] Director: Yakelin Neal MD, Phone: [phone] Cervical or vagninal specime n microscopic examination by cytology stain (reported asOrdered By: Moon Slater on 02-02-2024 Cytology report Cyto stain Doc (Cvx/Vag) Comment . [facility] Comment on above: The Pap smear is a s creening test designed to aid in thedetection of premalignant and malignant conditions of theuterine cervix. It is not a diagnostic procedure andshould not be used as the sole means of detecting cervicalcancer. Both false-positive and false-negative reports dooccur. Detection in cervical specim en of any of human papilloma virus (HPV) 16, 18, 31, 33,Ordered By: Moon Slater on 02-02-2024 HPV 16+18+31+33+35+39+45+51 +52+56+58+59+66+68 DNA Probe+sig amp Ql (Cvx) Negative Negative [facility] Comment on above: This nucleic acid am plification test detects fourteen high-risk HPV types (16,18,31,33,35,39,45,51,52,56,58,59,66,68)without differentiation. Determination of erythrocyte mean corpuscular volume (MCV)Ordered By: Moon Slater on 02-02-2024 MCV (RBC) [Entitic vol] 89.7 fL 81-99 [facility] Erythrocyte distribution wid th ratioOrdered By: Moon Slater on 02-02-2024 Erythrocyte distribution width (RBC) [Ratio] 13.0 % 11.6-14.6 [facility] Erythrocyte distribution wid th standard deviationOrdered By: Moon Slater on 02-02-2024 Erythrocyte distribution width (RBC) [Entitic vol] 42.6 fL 35.1-43.9 [facility] Hematocrit Auto (Bld) [Volum e fraction]Ordered By: Moon Slater on 02-02-2024 Hematocrit (Bld) [Volume fraction] 39.0 % 37-47 [facility] Immature granulocytes/100 WB C Auto (Bld)Ordered By: Moon Slater on 02-02-2024 Immature granulocytes/100 WBC (Bld) 0.400 % 0.0-0.9 [facility] Comment on above: IG% - Immature Granu locytes (promyelocytes, myelocytes and metamyelocytes) > 1% indicates that a LEFT SHIFT is Present. Laboratory - CytologyOrdered By: Moon Slater on 02-02-2024 Stitching Machine Feeder Or Offbearer Cyto stain Nom (Cvx/Vag) [ID] Comment . [facility] Comment on above: Uche Eduardo, Cyto technologist (ASCP) Laboratory - Hematology and Cell countsOrdered By: Moon Slater on 02-02-2024 MCH (RBC) [Entitic mass] 28.7 pg 27.0-32.0 [facility] MCHC (RBC) [Mass/Vol] 32.1 g/dL 32-36 [facility] Nucleated RBC/100 WBC (Bld) [Ratio] 0 % 0-5 [facility] Platelet mean volume (Bld) [Entitic vol] 9.2 fL 6.2-12.0 [facility] Platelets (Bld) [#/Vol] 238 10*3/uL 150-450 [facility] Laboratory - Miscellaneous t estsOrdered By: Moon Slater on 02-02-2024 Service comment (Unsp spec) [Interp] . . [facility] RBC Auto (Bld) [#/Vol]Ordere d By: Moon Slater on 02-02-2024 RBC (Bld) [#/Vol] 4.35 10*6/uL 4.2-5.4 [facility] Thin prep Papanicolaou smear with manual screeningOrdered By: Moon Slater on 02-02-2024 Thin prep Papanicolaou smear with manual screening Comment . [facility] Comment on above: NEGATIVE FOR INTRAEP ITHELIAL LESION OR MALIGNANCY. Thin prep Papanicolaou smear with manual screening TNP [facility] Comment on above: Test not performedTh e Thin Prep(R) County Treasurer was unable to read this specimen.Therefore a manual review was performed. Basophil percentageOrdered B y: Yousuf Velasquez on 08-28-2023 Basophil percentage >100 SEEN /hpf 0-5 [facility] Bilirubin Test strip Ql (U)O rdered By: Yousuf Velasquez on 08-28-2023 Bilirubin Ql (U) Negative Negative [facility] Culture, urineOrdered By: Keli Velasquez on 08-28-2023 Bacteria identified Cx Nom (U) Presumptive E. coli [facility] Ketones Test strip Ql (U)Ord ered By: Yousuf Velasquez on 08-28-2023 Ketones Ql (U) 5 mg/dl Negative [facility] Laboratory - Chemistry and C hemistry - challengeon 08-28-2023 Bilirubin Ql (U) Negative [facility] Glucose Ql (U) Negative [facility] Ketones Ql (U) Negative [facility] Specific gravity (U) [Rel density] 1.030 [facility] Urobilinogen (U) [Mass/Vol] 0.1815698 mg/dL [facility] Laboratory - Hematology and Cell countson 08-28-2023 Hemoglobin Ql (U) Hemolyzed [facility] Laboratory - Specimen inform ationon 08-28-2023 Clarity (U) Cloudy [facility] Color (U) YELLOW [facility] Laboratory - Urinalysison Nitrite Ql (U) Positive [facility] Protein Ql (U) Positive [facility] Mucus LM Ql (Urine sed)Order ed By: Yousuf Velasquez on 08-28-2023 Mucus Ql (Urine sed) 0 SEEN /hpf [facility] Nitrite Test strip Ql (U)Ord ered By: Yousuf Velasquez on 08-28-2023 Nitrite Ql (U) Positive Negative [facility] No Panel Informationon 08-28 Urine Leukocytes Positive [facility] Urine Non-Hemolyzed Blood Small [facility] Protein Test strip Ql (U)Ord ered By: Yousuf Velasquez on 08-28-2023 Protein Ql (U) 30 mg/dl Negative [facility] Squamous epithelial cells de tection in urine sediment by light microscopyOrdered By: Yousuf Velasquez on 08-28-2023 Epithelial cells.squamous LM Ql (Urine sed) 5-10 SEEN /hpf 5-10 [facility] Urine blood detectionOrdered By: Yousuf Velasquez on 08-28-2023 RBC Ql (U) 250 /ul Negative [facility] RBC Ql (U) > 100 SEEN /hpf 0-5 [facility] Urine clarityOrdered By: Mauricio Velasquez on 08-28-2023 Clarity (U) Cloudy Clear [facility] Urine color determinationOrd ered By: Yousuf Velasquez on 08-28-2023 Color (U) Yellow Yellow [facility] Urine glucose detectionOrder ed By: Yousuf Velasquez on 08-28-2023 Glucose Ql (U) Normal mg/dl Normal [facility] Urine leukocyte esterase det ection by dipstickOrdered By: Yousuf Velasquez on 08-28-2023 Leukocyte esterase Test strip Ql (U) 500 /ul Negative [facility] Urine pHOrdered By: Yousuf kelley on 08-28-2023 pH (U) 5.0 [pH] 5.0 - 8.0 [facility] Urine sediment bacteria coun t by microscopy (number/high power field)Ordered By: Yousuf Velasquez on 08-28-2023 Bacteria LM.HPF (Urine sed) [#/Area] 2 /[HPF] None Seen [facility] Urine specific gravity measu rementOrdered By: Yousuf Velasquez on 08-28-2023 Specific gravity (U) [Rel density] 1.025 1.002-1.030 [facility] Urobilinogen Auto test strip Ql (U)Ordered By: Yousuf Velasquez on 08-28-2023 Urobilinogen Ql (U) Normal mg/dl Normal [facility] Absolute lymphocyte countOrd ered By: Moon Slater on 07-24-2023 Lymphocytes Auto (Unsp spec) [#/Vol] 2.39 10*3/uL 0.83-4.51 [facility] Basophil percentageOrdered B y: Moon Slater on 07-24-2023 Basophils/100 WBC (Bld) 0.5 % 0-1 [facility] Bilirubin [Mass/Vol] 0.50 mg/dL 0.20-1.00 [facility] Comment on above: For patients on eltr ombopag therapy, use of Dimension [place] TBIL is not recommended. Chloride [Moles/Vol] 107 mmol/L 98-107 [facility] Cholesterol [Mass/Vol] 199 mg/dL <200 [facility] Comment on above: <200 mg/dL Desirable 200-240 mg/dL Borderline >240 mg/dL High Risk Eosinophils/100 WBC (Bld) 1.7 % 0-5 [facility] Glucose [Mass/Vol] 110 mg/dL 74-106 [facility] Comment on above: Fasting Glucose resu lt from 100 to 125 mg/dL suggests IMPAIRED HOMEOSTASIS per A.D.A. criteria. Neutrophils (Bld) [#/Vol] 4.4 10*3/uL 2.0-7.7 [facility] Neutrophils/100 WBC (Bld) 59.1 % 47-70 [facility] Potassium [Moles/Vol] 3.9 mmol/L 3.5-5.1 [facility] Protein [Mass/Vol] 7.5 g/dL 6.4-8.2 [facility] Sodium [Moles/Vol] 140 mmol/L 136-145 [facility] Triglyceride [Mass/Vol] 125 mg/dL <199 [facility] Comment on above: The drugs N-Acetylcy steine and Metamizole may falsely depress this assay.Serum Triglycerides Reference Interval Normal <150 mg/dL Borderline high 150 - 199 mg/dL High 200 - 499 mg/dL Very High > or = 500 mg/dL WBC (Bld) [#/Vol] 7.5 10*3/uL 4.4-11.0 [facility] Blood erythrocytes count (nu mber/volume)Ordered By: Moon Slater on 07-24-2023 RBC (Bld) [#/Vol] 4.46 10*6/uL 4.2-5.4 [facility] Blood hemoglobin measurement (mass/volume)Ordered By: Moon Slater on 07-24-2023 Hemoglobin (Bld) [Mass/Vol] 12.8 g/dL 12.0-15.0 [facility] Blood lymphocytes/100 leukoc ytesOrdered By: Moon Slater on 07-24-2023 Lymphocytes/100 WBC (Bld) 31.9 % 19-41 [facility] Blood monocytes/100 leukocyt esOrdered By: Moon Slater on 07-24-2023 Monocytes/100 WBC (Bld) 6.7 % 0-10 [facility] Blood platelet mean volumeOr dered By: Moon Slater on 07-24-2023 Platelet mean volume (Bld) [Entitic vol] 9.4 fL 6.2-12.0 [facility] Determination of erythrocyte mean corpuscular volume (MCV)Ordered By: Moon Slater on 07-24-2023 MCV (RBC) [Entitic vol] 90.4 fL 81-99 [facility] Hematocrit Auto (Bld) [Volum e fraction]Ordered By: Moon Slater on 07-24-2023 Hematocrit (Bld) [Volume fraction] 40.3 % 37-47 [facility] Laboratory - Chemistry and C hemistry - challengeOrdered By: Moon Slater on 07-24-2023 ALP [Catalytic activity/Vol] 91 U/L 45-117 [facility] ALT [Catalytic activity/Vol] 39 U/L 13-56 [facility] CO2 [Moles/Vol] 30.0 mmol/L 21.0-32.0 [facility] Globulin (S) [Mass/Vol] 3.7 g/dL 2.2-4.2 [facility] Urea nitrogen/Creatinine [Mass ratio] 16.4 mg/mg 10-20 [facility] Laboratory - Hematology and Cell countsOrdered By: Moon Slater on 07-24-2023 Erythrocyte distribution width (RBC) [Entitic vol] 42.6 fL 35.1-43.9 [facility] Erythrocyte distribution width (RBC) [Ratio] 12.9 % 11.6-14.6 [facility] Immature granulocytes/100 WBC (Bld) 0.100 % 0.0-0.9 [facility] Comment on above: IG% - Immature Granu locytes (promyelocytes, myelocytes and metamyelocytes) > 1% indicates that a LEFT SHIFT is Present. MCH (RBC) [Entitic mass] 28.7 pg 27.0-32.0 [facility] Nucleated RBC/100 WBC (Bld) [Ratio] 0 % 0-5 [facility] MCHC Auto (RBC) [Mass/Vol]Or dered By: Moon Slater on 07-24-2023 MCHC (RBC) [Mass/Vol] 31.8 g/dL 32-36 [facility] No Panel InformationOrdered By: Moon Slater on 07-24-2023 Estimated GFR (MDRD) Amer 81 mL/min >60 [facility] Comment on above: GFR Calc Estimated GFR (MDRD) Non-Af Amer 67 mL/min >60 [facility] Comment on above: Non- GFR Calc Thyroid Stimulating Hormone (TSH) 1.05 uIU/mL 0.358-3.74 [facility] Platelets bldOrdered By: Fco Slater on 07-24-2023 Platelets (Bld) [#/Vol] 220 10*3/uL 150-450 [facility] Serum or plasma albumin tico urement (mass/volume)Ordered By: Moon Slater on 07-24-2023 Albumin [Mass/Vol] 3.8 g/dL 3.2-5.0 [facility] Serum or plasma albumin/glob ulin mass ratioOrdered By: Moon Slater on 07-24-2023 Albumin/Globulin [Mass ratio] 1.0 {ratio} 0.9-2.4 [facility] Serum or plasma calcitriol m easurement (mass/volume)Ordered By: Moon Slater on 07-24-2023 1,25-dihydroxyvitamin D3 [Mass/Vol] 63.6 pg/mL 24.8-81.5 [facility] Comment on above: Performed at: [facility] - [address] [id number] Director: Latricia Duran MD, Phone: [phone] Serum or plasma calcium tico urement (mass/volume)Ordered By: Moon Slater on 07-24-2023 Calcium [Mass/Vol] 9.0 mg/dL 8.5-10.1 [facility] Serum or plasma cholesterol in HDL measurement (mass/volume)Ordered By: Moon Slater on 07-24-2023 Cholesterol in HDL [Mass/Vol] 53 mg/dL >40 [facility] Comment on above: The drugs N-Acetylcy steine and Metamizole may falsely depress this assay. Reference Range HDL <40 mg/dL Low HDL Cholesterol HDL >or= 60 mg/dL High HDL Cholesterol Serum or plasma cholesterol in VLDL measurement (mass/volume)Ordered By: Moon Slater on 07-24-2023 Cholesterol in VLDL [Mass/Vol] 25 mg/dL 5-40 [facility] Serum or plasma creatinine m easurement (mass/volume)Ordered By: Moon Slater on 07-24-2023 Creatinine [Mass/Vol] 0.92 mg/dL 0.55-1.02 [facility] Comment on above: The validity of the calculated GFR & GFRAA in patients over 70 years has not been determined. Clinical correlation is essential. Serum or plasma low density lipoprotein (LDL) cholesterol measurement (mass/volume)Ordered By: Moon Slater on 07-24-2023 Cholesterol in LDL [Mass/Vol] 121 mg/dL 0-130 [facility] Serum or plasma urea nitroge n measurement (mass/volume)Ordered By: Moon Slater on 07-24-2023 Urea nitrogen [Mass/Vol] 15 mg/dL 7-18 [facility] Thin prep Papanicolaou smear with manual screeningOrdered By: Moon Slater on 07-24-2023 Thin prep Papanicolaou smear with manual screening 15 U/L 15-37 [facility] Thin prep Papanicolaou smear with manual screening 3 5-15 [facility] Whole blood hemoglobin A1c/t otal hemoglobin ratio (mass fraction)Ordered By: Moon Slater on 07-24-2023 HbA1c (Bld) [Mass fraction] 5.8 % 3.8-5.6 [facility] Comment on above: Normal < 5.7 % Predi abetic 5.7 - 6.4 % Diabetic >or= 6.5 % Please note range changes. Absolute lymphocyte counton 04-01-2022 Lymphocytes Auto (Unsp spec) [#/Vol] 3.34 10*3/uL 0.83-4.51 [facility] Work Phone: Basophil percentageon 2021 Basophil percentage 0 SEEN /hpf 0-5 [facility] Work Phone: Basophils/100 WBC (Bld) 0.4 % 0-1 [facility] Work Phone: Chloride [Moles/Vol] 105 mmol/L 98-107 [facility] Work Phone: Eosinophils/100 WBC (Bld) 1.7 % 0-5 [facility] Work Phone: Glucose [Mass/Vol] 174 mg/dL 74-106 [facility] Work Phone: Comment on above: Fasting Glucose resu lt greater than or equal to 126 mg/dL suggests DIABETES MELLITUS per A.D.A. criteria. Neutrophils (Bld) [#/Vol] 7.2 10*3/uL 2.0-7.7 [facility] Work Phone: Neutrophils/100 WBC (Bld) 63.1 % 47-70 [facility] Work Phone: [phone] Potassium [Moles/Vol] 3.5 mmol/L 3.5-5.1 [facility] Work Phone: [phone] Sodium [Moles/Vol] 138 mmol/L 136-145 [facility] Work Phone: WBC (Bld) [#/Vol] 11.5 10*3/uL 4.4-11.0 [facility] Work Phone: Bilirubin Test strip Ql (U)o n 04-01-2022 Bilirubin Ql (U) Negative Negative [facility] Work Phone: Blood erythrocytes count (nu mber/volume)on 04-01-2022 RBC (Bld) [#/Vol] 4.57 10*6/uL 4.2-5.4 [facility] Work Phone: Blood hemoglobin measurement (mass/volume)on 04-01-2022 Hemoglobin (Bld) [Mass/Vol] 13.0 g/dL 12.0-15.0 [facility] Work Phone: [phone] Blood lymphocytes/100 leukoc yteson 04-01-2022 Lymphocytes/100 WBC (Bld) 29.1 % 19-41 [facility] Work Phone: Blood monocytes/100 leukocyt eson 04-01-2022 Monocytes/100 WBC (Bld) 5.0 % 0-10 [facility] Work Phone: Blood platelet mean volumeon 04-01-2022 Platelet mean volume (Bld) [Entitic vol] 9.9 fL 6.2-12.0 [facility] Work Phone: Determination of erythrocyte mean corpuscular volume (MCV)on 04-01-2022 MCV (RBC) [Entitic vol] 87.7 fL 81-99 [facility] Work Phone: Hematocrit Auto (Bld) [Volum e fraction]on 04-01-2022 Hematocrit (Bld) [Volume fraction] 40.1 % 37-47 [facility] Work Phone: Ketones Test strip Ql (U)on 04-01-2022 Ketones Ql (U) Negative Negative [facility] Work Phone: Laboratory - Chemistry and C hemistry - challengeon 04-01-2022 CO2 [Moles/Vol] 25.0 mmol/L 21.0-32.0 [facility] Work Phone: Urea nitrogen/Creatinine [Mass ratio] 15.4 mg/mg 10-20 [facility] Work Phone: Laboratory - Hematology and Cell countson 04-01-2022 Erythrocyte distribution width (RBC) [Entitic vol] 40.8 fL 35.1-43.9 [facility] Work Phone: Erythrocyte distribution width (RBC) [Ratio] 12.6 % 11.6-14.6 [facility] Work Phone: Immature granulocytes/100 WBC (Bld) 0.700 % 0.0-0.9 [facility] Work Phone: Comment on above: IG% - Immature Granu locytes (promyelocytes, myelocytes and metamyelocytes) > 1% indicates that a LEFT SHIFT is Present. MCH (RBC) [Entitic mass] 28.4 pg 27.0-32.0 [facility] Work Phone: Nucleated RBC/100 WBC (Bld) [Ratio] 0 % 0-5 [facility] Work Phone: MCHC Auto (RBC) [Mass/Vol]on 04-01-2022 MCHC (RBC) [Mass/Vol] 32.4 g/dL 32-36 [facility] Work Phone: Mucus LM Ql (Urine sed)on Mucus Ql (Urine sed) 0 SEEN /hpf [facility] Work Phone: Nitrite Test strip Ql (U)on 04-01-2022 Nitrite Ql (U) Negative Negative [facility] Work Phone: No Panel Informationon 04-01 Estimated Creatinine Clearance Calc 71.14 ml/min [facility] Work Phone: Estimated GFR (MDRD) Amer 76 mL/min >60 [facility] Work Phone: Comment on above: GFR Calc Estimated GFR (MDRD) Non-Af Amer 63 mL/min >60 [facility] Work Phone: Comment on above: Non- GFR Calc Platelets bldon 04-01-2022 Platelets (Bld) [#/Vol] 222 10*3/uL 150-450 [facility] Work Phone: Protein Test strip Ql (U)on 04-01-2022 Protein Ql (U) Negative Negative [facility] Work Phone: Serum or plasma calcium tico urement (mass/volume)on 04-01-2022 Calcium [Mass/Vol] 9.4 mg/dL 8.5-10.1 [facility] Work Phone: Serum or plasma creatinine m easurement (mass/volume)on 04-01-2022 Creatinine [Mass/Vol] 0.98 mg/dL 0.55-1.02 [facility] Work Phone: Comment on above: The validity of the calculated GFR & GFRAA in patients over 70 years has not been determined. Clinical correlation is essential. Serum or plasma urea nitroge n measurement (mass/volume)on 04-01-2022 Urea nitrogen [Mass/Vol] 15 mg/dL 7-18 [facility] Work Phone: Squamous epithelial cells de tection in urine sediment by light microscopyon 04-01-2022 Epithelial cells.squamous LM Ql (Urine sed) 0-5 SEEN /hpf 5-10 [facility] Work Phone: Thin prep Papanicolaou smear with manual screeningon 04-01-2022 Thin prep Papanicolaou smear with manual screening 8 5-15 [facility] Work Phone: [phone] Urine blood detectionon --2021 RBC Ql (U) Negative Negative [facility] Work Phone: RBC Ql (U) 0 SEEN /hpf 0-5 [facility] Work Phone: Urine clarityon 04-01-2022 Clarity (U) Sl. Cloudy Clear [facility] Work Phone: Urine color determinationon 04-01-2022 Color (U) Yellow Yellow [facility] Work Phone: [phone] Urine glucose detectionon Glucose Ql (U) 100 mg/dl Normal [facility] Work Phone: Urine leukocyte esterase det ection by dipstickon 04-01-2022 Leukocyte esterase Test strip Ql (U) Negative Negative [facility] Work Phone: Urine pHon 04-01-2022 pH (U) 7.0 [pH] 5.0 - 8.0 [facility] Work Phone: [phone] Urine sediment bacteria coun t by microscopy (number/high power field)on 04-01-2022 Bacteria LM.HPF (Urine sed) [#/Area] 0 /[HPF] None Seen [facility] Work Phone: Urine specific gravity measu rementon 04-01-2022 Specific gravity (U) [Rel density] 1.010 1.002-1.030 [facility] Work Phone: Urobilinogen Auto test strip Ql (U)on 04-01-2022 Urobilinogen Ql (U) Normal mg/dl Normal [facility] Work Phone: Absolute lymphocyte counton 12-25-2021 Lymphocytes Auto (Unsp spec) [#/Vol] 3.18 10*3/uL 0.83-4.51 [facility] Work Phone: Basophil percentageon 2021 Basophils/100 WBC (Bld) 0.4 % 0-1 [facility] Work Phone: [phone] Eosinophils/100 WBC (Bld) 2.9 % 0-5 [facility] Work Phone: [phone] Neutrophils (Bld) [#/Vol] 3.9 10*3/uL 2.0-7.7 [facility] Work Phone: [phone] Neutrophils/100 WBC (Bld) 49.2 % 47-70 [facility] Work Phone: WBC (Bld) [#/Vol] 7.9 10*3/uL 4.4-11.0 [facility] Work Phone: Blood erythrocytes count (nu mber/volume)on 12-25-2021 RBC (Bld) [#/Vol] 4.51 10*6/uL 4.2-5.4 [facility]: [phone] Blood hemoglobin measurement (mass/volume)on 12-25-2021 Hemoglobin (Bld) [Mass/Vol] 13.3 g/dL 12.0-15.0 [facility] Work Phone: Blood lymphocytes/100 leukoc yteson 12-25-2021 Lymphocytes/100 WBC (Bld) 40.1 % 19-41 [facility] Work Phone: [phone] Blood monocytes/100 leukocyt eson 12-25-2021 Monocytes/100 WBC (Bld) 7.1 % 0-10 [facility] Work Phone: Blood platelet mean volumeon 12-25-2021 Platelet mean volume (Bld) [Entitic vol] 9.6 fL 6.2-12.0 [facility] Work Phone: Determination of erythrocyte mean corpuscular volume (MCV)on 12-25-2021 MCV (RBC) [Entitic vol] 87.6 fL 81-99 [facility] Work Phone: Hematocrit Auto (Bld) [Volum e fraction]on 12-25-2021 Hematocrit (Bld) [Volume fraction] 39.5 % 37-47 [facility] Work Phone: Laboratory - Hematology and Cell countson 12-25-2021 Erythrocyte distribution width (RBC) [Entitic vol] 39.8 fL 35.1-43.9 [facility] Work Phone: Erythrocyte distribution width (RBC) [Ratio] 12.5 % 11.6-14.6 [facility] Work Phone: Immature granulocytes/100 WBC (Bld) 0.300 % 0.0-0.9 [facility] Work Phone: Comment on above: IG% - Immature Granu locytes (promyelocytes, myelocytes and metamyelocytes) > 1% indicates that a LEFT SHIFT is Present. MCH (RBC) [Entitic mass] 29.5 pg 27.0-32.0 [facility] Work Phone: Nucleated RBC/100 WBC (Bld) [Ratio] 0 % 0-5 [facility] Work Phone: MCHC Auto (RBC) [Mass/Vol]on 12-25-2021 MCHC (RBC) [Mass/Vol] 33.7 g/dL 32-36 [facility] Work Phone: Platelets bldon 12-25-2021 Platelets (Bld) [#/Vol] 224 10*3/uL 150-450 [facility] Work Phone: Culture, urineon 11-26-2021 Bacteria identified Cx Nom (U) Escherichia coli [facility] Work Phone: Bacteria identified Cx Nom (U) Mixed Gram Pos & Gram Neg Org [facility] Work Phone: Laboratory - Chemistry and C hemistry - challengeon 11-26-2021 Bilirubin Ql (U) Negative [facility] Work Phone: Specific gravity (U) [Rel density] 1.015 [facility] Work Phone: Laboratory - Hematology and Cell countson 11-26-2021 Hemoglobin Ql (U) Large [facility] Work Phone: Laboratory - Specimen inform ationon 11-26-2021 Clarity (U) Clear [facility] Work Phone: Color (U) YELLOW [facility] Work Phone: Laboratory - Urinalysison Nitrite Ql (U) Positive [facility] Work Phone: Protein Ql (U) Negative [facility] Work Phone: No Panel Informationon 11-26 Urine Leukocytes Positive [facility] Work Phone: Absolute lymphocyte counton 11-24-2021 Lymphocytes Auto (Unsp spec) [#/Vol] 3.21 10*3/uL 0.83-4.51 [facility] Work Phone: Basophil percentageon 2021 Basophil percentage 0 SEEN /hpf [facility] Work Phone: Basophils/100 WBC (Bld) 0.5 % 0-1 [facility] Work Phone: Chloride [Moles/Vol] 109 mmol/L 98-107 [facility] Work Phone: Eosinophils/100 WBC (Bld) 2.3 % 0-5 [facility] Work Phone: Glucose [Mass/Vol] 176 mg/dL 74-106 [facility] Work Phone: Comment on above: Fasting Glucose resu lt greater than or equal to 126 mg/dL suggests DIABETES MELLITUS per A.D.A. criteria. Neutrophils (Bld) [#/Vol] 5.7 10*3/uL 2.0-7.7 [facility] Work Phone: Neutrophils/100 WBC (Bld) 57.8 % 47-70 [facility] Work Phone: Potassium [Moles/Vol] 3.4 mmol/L 3.5-5.1 [facility] Work Phone: Sodium [Moles/Vol] 141 mmol/L 136-145 [facility] Work Phone: WBC (Bld) [#/Vol] 9.8 10*3/uL 4.4-11.0 [facility] Work Phone: Bilirubin Test strip Ql (U)o n 11-24-2021 Bilirubin Ql (U) 1 mg/dL Negative [facility] Work Phone: Comment on above: COLOR OF URINE MAY A FFECT DIPSTICK RESULTS. Blood erythrocytes count (nu mber/volume)on 11-24-2021 RBC (Bld) [#/Vol] 4.46 10*6/uL 4.2-5.4 [facility] Work Phone: Blood hemoglobin measurement (mass/volume)on 11-24-2021 Hemoglobin (Bld) [Mass/Vol] 12.9 g/dL 12.0-15.0 [facility] Work Phone: Blood lymphocytes/100 leukoc yteson 11-24-2021 Lymphocytes/100 WBC (Bld) 32.8 % 19-41 [facility] Work Phone: Blood monocytes/100 leukocyt eson 11-24-2021 Monocytes/100 WBC (Bld) 6.3 % 0-10 [facility] Work Phone: Blood platelet mean volumeon 11-24-2021 Platelet mean volume (Bld) [Entitic vol] 9.5 fL 6.2-12.0 [facility] Work Phone: Determination of erythrocyte mean corpuscular volume (MCV)on 11-24-2021 MCV (RBC) [Entitic vol] 88.8 fL 81-99 [facility] Work Phone: Hematocrit Auto (Bld) [Volum e fraction]on 11-24-2021 Hematocrit (Bld) [Volume fraction] 39.6 % 37-47 [facility] Work Phone: Ketones Test strip Ql (U)on 11-24-2021 Ketones Ql (U) Negative Negative [facility] Work Phone: Laboratory - Chemistry and C hemistry - challengeon 11-24-2021 CO2 [Moles/Vol] 25.0 mmol/L 21.0-32.0 [facility] Work Phone: Urea nitrogen/Creatinine [Mass ratio] 19.8 mg/mg 10-20 [facility] Work Phone: Laboratory - Hematology and Cell countson 11-24-2021 Erythrocyte distribution width (RBC) [Entitic vol] 40.8 fL 35.1-43.9 [facility] Work Phone: Erythrocyte distribution width (RBC) [Ratio] 12.6 % 11.6-14.6 [facility] Work Phone: Immature granulocytes/100 WBC (Bld) 0.300 % 0.0-0.9 [facility] Work Phone: Comment on above: IG% - Immature Granu locytes (promyelocytes, myelocytes and metamyelocytes) > 1% indicates that a LEFT SHIFT is Present. MCH (RBC) [Entitic mass] 28.9 pg 27.0-32.0 [facility] Work Phone: Nucleated RBC/100 WBC (Bld) [Ratio] 0 % 0-5 [facility] Work Phone: MCHC Auto (RBC) [Mass/Vol]on 11-24-2021 MCHC (RBC) [Mass/Vol] 32.6 g/dL 32-36 [facility] Work Phone: Mucus LM Ql (Urine sed)on Mucus Ql (Urine sed) 0 SEEN /hpf [facility] Work Phone: Nitrite Test strip Ql (U)on 11-24-2021 Nitrite Ql (U) Positive Negative [facility] Work Phone: No Panel Informationon 11-24 Estimated Creatinine Clearance Calc 67.60 ml/min [facility] Work Phone: Estimated GFR (MDRD) Amer 73 mL/min >60 [facility] Work Phone: Comment on above: GFR Calc Estimated GFR (MDRD) Non-Af Amer 60 mL/min >60 [facility] Work Phone: Comment on above: Non- GFR Calc Platelets bldon 11-24-2021 Platelets (Bld) [#/Vol] 204 10*3/uL 150-450 [facility] Work Phone: Protein Test strip Ql (U)on 11-24-2021 Protein Ql (U) 30 mg/dl Negative [facility] Work Phone: Serum or plasma calcium tico urement (mass/volume)on 11-24-2021 Calcium [Mass/Vol] 8.9 mg/dL 8.5-10.1 [facility] Work Phone: Serum or plasma creatinine m easurement (mass/volume)on 11-24-2021 Creatinine [Mass/Vol] 1.01 mg/dL 0.55-1.02 [facility] Work Phone: Comment on above: The validity of the calculated GFR & GFRAA in patients over 70 years has not been determined. Clinical correlation is essential. Serum or plasma urea nitroge n measurement (mass/volume)on 11-24-2021 Urea nitrogen [Mass/Vol] 20 mg/dL 7-18 [facility] Work Phone: Squamous epithelial cells de tection in urine sediment by light microscopyon 11-24-2021 Epithelial cells.squamous LM Ql (Urine sed) 0 SEEN /hpf [facility] Work Phone: Thin prep Papanicolaou smear with manual screeningon 11-24-2021 Thin prep Papanicolaou smear with manual screening 7 5-15 [facility] Work Phone: Urine blood detectionon 11-13 RBC Ql (U) 25 /ul Negative [facility] Work Phone: RBC Ql (U) 0-5 SEEN /hpf [facility] Work Phone: Urine clarityon 11-24-2021 Clarity (U) Clear Clear [facility] Work Phone: Urine color determinationon 11-24-2021 Color (U) Yellow Yellow [facility] Work Phone: Urine glucose detectionon Glucose Ql (U) 250 mg/dl Normal [facility] Work Phone: Urine leukocyte esterase det ection by dipstickon 11-24-2021 Leukocyte esterase Test strip Ql (U) Negative Negative [facility] Work Phone: Urine pHon 11-24-2021 pH (U) 6.0 [pH] [facility] Work Phone: Urine sediment bacteria coun t by microscopy (number/high power field)on 11-24-2021 Bacteria LM.HPF (Urine sed) [#/Area] 0 /[HPF] None Seen [facility] Work Phone: Urine specific gravity measu rementon 11-24-2021 Specific gravity (U) [Rel density] 1.020 [facility] Work Phone: Urobilinogen Auto test strip Ql (U)on 11-24-2021 Urobilinogen Ql (U) 4 mg/dl Normal [facility] Work Phone: Absolute lymphocyte counton 11-05-2021 Lymphocytes Auto (Unsp spec) [#/Vol] 2.34 10*3/uL 0.83-4.51 [facility] Work Phone: Basophil percentageon 2021 Basophils/100 WBC (Bld) 0.4 % 0-1 [facility] Work Phone: Bilirubin [Mass/Vol] 0.40 mg/dL 0.20-1.00 [facility] Work Phone: Comment on above: For patients on eltr ombopag therapy, use of Dimension [place] TBIL is not recommended. Chloride [Moles/Vol] 105 mmol/L 98-107 [facility] Work Phone: Eosinophils/100 WBC (Bld) 0.6 % 0-5 [facility] Work Phone: Glucose [Mass/Vol] 105 mg/dL 74-106 [facility] Work Phone: Comment on above: Fasting Glucose resu lt from 100 to 125 mg/dL suggests IMPAIRED HOMEOSTASIS per A.D.A. criteria. Neutrophils (Bld) [#/Vol] 7.0 10*3/uL 2.0-7.7 [facility] Work Phone: Neutrophils/100 WBC (Bld) 69.5 % 47-70 [facility] Work Phone: Potassium [Moles/Vol] 3.8 mmol/L 3.5-5.1 [facility] Work Phone: [phone] Protein [Mass/Vol] 7.4 g/dL 6.4-8.2 [facility] Work Phone: Sodium [Moles/Vol] 138 mmol/L 136-145 [facility] Work Phone: WBC (Bld) [#/Vol] 10.1 10*3/uL 4.4-11.0 [facility] Work Phone: Blood erythrocytes count (nu mber/volume)on 11-05-2021 RBC (Bld) [#/Vol] 4.56 10*6/uL 4.2-5.4 [facility] Work Phone: Blood hemoglobin measurement (mass/volume)on 11-05-2021 Hemoglobin (Bld) [Mass/Vol] 13.1 g/dL 12.0-15.0 [facility] Work Phone: Blood lymphocytes/100 leukoc yteson 11-05-2021 Lymphocytes/100 WBC (Bld) 23.2 % 19-41 [facility] Work Phone: Blood monocytes/100 leukocyt eson 11-05-2021 Monocytes/100 WBC (Bld) 6.0 % 0-10 [facility] Work Phone: Blood platelet mean volumeon 11-05-2021 Platelet mean volume (Bld) [Entitic vol] 9.2 fL 6.2-12.0 [facility] Work Phone: Determination of erythrocyte mean corpuscular volume (MCV)on 11-05-2021 MCV (RBC) [Entitic vol] 87.9 fL 81-99 [facility] Work Phone: Hematocrit Auto (Bld) [Volum e fraction]on 11-05-2021 Hematocrit (Bld) [Volume fraction] 40.1 % 37-47 [facility] Work Phone: Laboratory - Chemistry and C hemistry - challengeon 11-05-2021 ALP [Catalytic activity/Vol] 91 U/L 45-117 [facility] Work Phone: ALT [Catalytic activity/Vol] 61 U/L 13-56 [facility] Work Phone: CO2 [Moles/Vol] 26.0 mmol/L 21.0-32.0 [facility] Work Phone: Globulin (S) [Mass/Vol] 3.5 g/dL 2.2-4.2 [facility] Work Phone: Urea nitrogen/Creatinine [Mass ratio] 14.7 mg/mg 10-20 [facility] Work Phone: Laboratory - Hematology and Cell countson 11-05-2021 Erythrocyte distribution width (RBC) [Entitic vol] 41.2 fL 35.1-43.9 [facility] Work Phone: Erythrocyte distribution width (RBC) [Ratio] 12.8 % 11.6-14.6 [facility] Work Phone: Immature granulocytes/100 WBC (Bld) 0.300 % 0.0-0.9 [facility] Work Phone: Comment on above: IG% - Immature Granu locytes (promyelocytes, myelocytes and metamyelocytes) > 1% indicates that a LEFT SHIFT is Present. MCH (RBC) [Entitic mass] 28.7 pg 27.0-32.0 [facility] Work Phone: Nucleated RBC/100 WBC (Bld) [Ratio] 0 % 0-5 [facility] Work Phone: MCHC Auto (RBC) [Mass/Vol]on 11-05-2021 MCHC (RBC) [Mass/Vol] 32.7 g/dL 32-36 [facility] Work Phone: No Panel Informationon 11-05 Estimated Creatinine Clearance Calc 96.73 ml/min [facility] Work Phone: Estimated GFR (MDRD) Amer 103 mL/min >60 [facility] Work Phone: Comment on above: GFR Calc Estimated GFR (MDRD) Non-Af Amer 85 mL/min >60 [facility] Work Phone: Comment on above: Non- GFR Calc Platelets bldon 11-05-2021 Platelets (Bld) [#/Vol] 205 10*3/uL 150-450 [facility] Work Phone: Serum or plasma albumin tico urement (mass/volume)on 11-05-2021 Albumin [Mass/Vol] 3.9 g/dL 3.2-5.0 [facility] Work Phone: Serum or plasma albumin/glob ulin mass ratioon 11-05-2021 Albumin/Globulin [Mass ratio] 1.1 {ratio} 0.9-2.4 [facility] Work Phone: Serum or plasma calcium tico urement (mass/volume)on 11-05-2021 Calcium [Mass/Vol] 8.9 mg/dL 8.5-10.1 [facility] Work Phone: Serum or plasma creatinine m easurement (mass/volume)on 11-05-2021 Creatinine [Mass/Vol] 0.75 mg/dL 0.55-1.02 [facility] Work Phone: Comment on above: The validity of the calculated GFR & GFRAA in patients over 70 years has not been determined. Clinical correlation is essential. Serum or plasma urea nitroge n measurement (mass/volume)on 11-05-2021 Urea nitrogen [Mass/Vol] 11 mg/dL 7-18 [facility] Work Phone: Thin prep Papanicolaou smear with manual screeningon 11-05-2021 Thin prep Papanicolaou smear with manual screening 29 U/L 15-37 [facility] Work Phone: Thin prep Papanicolaou smear with manual screening 7 5-15 [facility] Work Phone: CT Abdomen Pelvis Wo Contras ton 08-23-2020 [facility] 8:47 AM EST Patient Name: GENNY [facility] ---CT--- Exam Date/Time 08/23/2020 08:25:[address] Abdomen/Pelvis (No PO, No IV) Ordering Physician MD UCHE, JUS Yen Accession Number [id number] CPT4 Codes 28554 (CT Abdomen/Pelvis (No PO, No IV)) Reason For Exam L flank Report CLINICAL INFORMATION: Left flank pain. Nausea. CT abdomen and pelvis without intravenous contrast: CT abdomen: Volume acquisition CT images are obtained the diaphragm to the iliac crests without oral or intravenous contrast administration with axial, coronal and sagittal 2-D reconstructions. Images through the upper abdomen which included the lower chest demonstrate shallow 4 x 2 mm subpleural lung nodule or focal pleural thickening in the posterior aspect of the right lower lobe. No other abnormal pleural or parenchymal densities are identified. There are 6 mm anterior right lower pole and 0.3 mm mid left lower pole calcified calyceal calculi. There is an additional punctate left upper pole calyceal calcified calculus. There is mild left hydronephrosis than mild proximal ureteral dilatation. No other calcified renal or proximal ureteral calculi are identified on either side. There is no hydronephrosis or proximal ureteral dilatation on the right. There is a subtle 1.4 cm round hypodensity in the anterior cortex of the lower pole the right kidney which is not well characterized but is most likely a cyst. The unenhanced kidneys are otherwise unremarkable in size, configuration and density. No inflammatory changes are seen in the perinephric fat. The unenhanced liver demonstrates patchy hypodensity relative to the spleen consistent with fatty metamorphosis. No mass or intrahepatic biliary dilatation is seen. There is a moderately distended elongated gallbladder without calcified stones, wall thickening or adjacent inflammation which is nonspecific and may be physiologic. The unenhanced spleen and pancreas are grossly unremarkable in size, configuration and density. There is no adrenal gland mass or enlargement. There is no ascites or retroperitoneal lymphadenopathy. No other focal mass, fluid collection or inflammatory process is seen. CT pelvis: Volume acquisition CT images were obtained from the iliac crests to the symphysis pubis without oral or intravenous contrast administration with axial, coronal and sagittal 2-D reconstructions. There is a mildly dilated left distal ureter with a 2.5 mm calcified calculus in the distal ureter approximately 0.7 cm proximal to the trigone. No calcified calculi or dilatation is seen of the right distal ureter. There is a partially contracted unopacified urinary bladder without calcified calculi or other visible abnormality. There is no abnormality of the uterus or right adnexa. There is a 2.9 cm left ovarian or adnexal cyst. No focal mass or fluid collection is seen. There is no iliac or inguinal lymphadenopathy. No ascites or inflammatory changes are identified. IMPRESSION: 1. 2.5 mm left distal ureteral calcified calculus with mild hydronephrosis and ureteral dilatation. 2. Additional nonobstructing bilateral calcified calyceal calculi. 3. No evidence for other calcified collecting system calculi or obstruction. 4. Nonspecific gallbladder dilatation possibly physiologic. 5. Diffuse fatty metamorphosis of liver. 6. Indeterminate hypodense anterior right renal cortical lesion most likely a cyst. 7. No evidence of mass, lymphadenopathy or inflammatory process. 8. Shallow 4 x 2 mm right posterior subpleural lung nodule or focal pleural thickening. See comments immediately below. 2017 - UPDATED [employer] GUID[employer] FOR MANAGEMENT OF SMALL PULMONARY NODULES DETECTED ON CT Note: Recommendations do not apply for lung cancer screening, patients with immunosuppression or with known cancer. Dimensions are average of long and short axis rounded to the millimeter SOLITARY NODULE: LOW RISK PATIENT <6mm - No follow up 6-8mm - 6-12 months, then consider 18-24 months >8mm - PET/CT, Bx or followup in 3 months SOLITARY NODULE: HIGH RISK PATIENT <6mm - Optional 6-12 months (suspicious morphology or upper lobe) 6-8mm - 6-12 months, then 18-24 months >8mm - PET/CT, Bx or followup in 3 months Report Dictated on --- Final --- Dictating Physician: MD HENDERSON HARLAN Signed Date and Time: 08/23/2020 8:45 am Signed by: MD HENDERSON HARLAN Transcribed Date and Time: 08/23/2020 8:47 [place], [place] Patient Name: GENNY RAWLS ---CT--- Exam Date/Time 08/23/2020 08:25:[address] Abdomen/Pelvis (No PO, No IV) Ordering Physician MD IVEY DAVID L Accession Number [id number] CPT4 Codes 24581 (CT Abdomen/Pelvis (No PO, No IV)) Reason For Exam L flank Report CLINICAL INFORMATION: Left flank pain. Nausea. CT abdomen and pelvis without intravenous contrast: CT abdomen: Volume acquisition CT images are obtained the diaphragm to the iliac crests without oral or intravenous contrast administration with axial, coronal and sagittal 2-D reconstructions. Images through the upper abdomen which included the lower chest demonstrate shallow 4 x 2 mm subpleural lung nodule or focal pleural thickening in the posterior aspect of the right lower lobe. No other abnormal pleural or parenchymal densities are identified. There are 6 mm anterior right lower pole and 0.3 mm mid left lower pole calcified calyceal calculi. There is an additional punctate left upper pole calyceal calcified calculus. There is mild left hydronephrosis than mild proximal ureteral dilatation. No other calcified renal or proximal ureteral calculi are identified on either side. There is no hydronephrosis or proximal ureteral dilatation on the right. There is a subtle 1.4 cm round hypodensity in the anterior cortex of the lower pole the right kidney which is not well characterized but is most likely a cyst. The unenhanced kidneys are otherwise unremarkable in size, configuration and density. No inflammatory changes are seen in the perinephric fat. The unenhanced liver demonstrates patchy hypodensity relative to the spleen consistent with fatty metamorphosis. No mass or intrahepatic biliary dilatation is seen. There is a moderately distended elongated gallbladder without calcified stones, wall thickening or adjacent inflammation which is nonspecific and may be physiologic. The unenhanced spleen and pancreas are grossly unremarkable in size, configuration and density. There is no adrenal gland mass or enlargement. There is no ascites or retroperitoneal lymphadenopathy. No other focal mass, fluid collection or inflammatory process is seen. CT pelvis: Volume acquisition CT images were obtained from the iliac crests to the symphysis pubis without oral or intravenous contrast administration with axial, coronal and sagittal 2-D reconstructions. There is a mildly dilated left distal ureter with a 2.5 mm calcified calculus in the distal ureter approximately 0.7 cm proximal to the trigone. No calcified calculi or dilatation is seen of the right distal ureter. There is a partially contracted unopacified urinary bladder without calcified calculi or other visible abnormality. There is no abnormality of the uterus or right adnexa. There is a 2.9 cm left ovarian or adnexal cyst. No focal mass or fluid collection is seen. There is no iliac or inguinal lymphadenopathy. No ascites or inflammatory changes are identified. IMPRESSION: 1. 2.5 mm left distal ureteral calcified calculus with mild hydronephrosis and ureteral dilatation. 2. Additional nonobstructing bilateral calcified calyceal calculi. 3. No evidence for other calcified collecting system calculi or obstruction. 4. Nonspecific gallbladder dilatation possibly physiologic. 5. Diffuse fatty metamorphosis of liver. 6. Indeterminate hypodense anterior right renal cortical lesion most likely a cyst. 7. No evidence of mass, lymphadenopathy or inflammatory process. 8. Shallow 4 x 2 mm right posterior subpleural lung nodule or focal pleural thickening. See comments immediately below. 2017 - UPDATED [employer] GUID[employer] FOR MANAGEMENT OF SMALL PULMONARY NODULES DETECTED ON CT Note: Recommendations do not apply for lung cancer screening, patients with immunosuppression or with known cancer. Dimensions are average of long and short axis rounded to the millimeter SOLITARY NODULE: LOW RISK PATIENT <6mm - No follow up 6-8mm - 6-12 months, then consider 18-24 months >8mm - PET/CT, Bx or followup in 3 months SOLITARY NODULE: HIGH RISK PATIENT <6mm - Optional 6-12 months (suspicious morphology or upper lobe) 6-8mm - 6-12 months, then 18-24 months >8mm - PET/CT, Bx or followup in 3 months Report Dictated on --- Final --- Dictating Physician: MD HENDERSON HARLAN Signed Date and Time: 08/23/2020 8:45 am Signed by: MD SANTIAGO, ANDREE Transcribed Date and Time: 08/23/2020 8:47 [place], [place] CT Abdomen/Pelvis w/o Lucianomellisa moises 08-23-2020 CT Abdomen/Pelvis w/o Contrast Patient Name: GENNY NEWMAN CT Exam Date/Time 08/23/2020 08:25:[address] Abdomen/Pelvis (No PO, No IV) Ordering Physician MD UCHE, JUS Yen Accession Number [id number] CPT4 Codes 01048 (CT Abdomen/Pelvis (No PO, No IV)) Reason For Exam L flank Report CLINICAL INFORMATION: Left flank pain. Nausea. CT abdomen and pelvis without intravenous contrast: CT abdomen: Volume acquisition CT images are obtained the diaphragm to the iliac crests without oral or intravenous contrast administration with axial, coronal and sagittal 2-D reconstructions. Images through the upper abdomen which included the lower chest demonstrate shallow 4 x 2 mm subpleural lung nodule or focal pleural thickening in the posterior aspect of the right lower lobe. No other abnormal pleural or parenchymal densities are identified. There are 6 mm anterior right lower pole and 0.3 mm mid left lower pole calcified calyceal calculi. There is an additional punctate left upper pole calyceal calcified calculus. There is mild left hydronephrosis than mild proximal ureteral dilatation. No other calcified renal or proximal ureteral calculi are identified on either side. There is no hydronephrosis or proximal ureteral dilatation on the right. There is a subtle 1.4 cm round hypodensity in the anterior cortex of the lower pole the right kidney which is not well characterized but is most likely a cyst. The unenhanced kidneys are otherwise unremarkable in size, configuration and density. No inflammatory changes are seen in the perinephric fat. The unenhanced liver demonstrates patchy hypodensity relative to the spleen consistent with fatty metamorphosis. No mass or intrahepatic biliary dilatation is seen. There is a moderately distended elongated gallbladder without calcified stones, wall thickening or adjacent inflammation which is nonspecific and may be physiologic. The unenhanced spleen and pancreas are grossly unremarkable in size, configuration and density. There is no adrenal gland mass or enlargement. There is no ascites or retroperitoneal lymphadenopathy. No other focal mass, fluid collection or inflammatory process is seen. CT pelvis: Volume acquisition CT images were obtained from the iliac crests to the symphysis pubis without oral or intravenous contrast administration with axial, coronal and sagittal 2-D reconstructions. There is a mildly dilated left distal ureter with a 2.5 mm calcified calculus in the distal ureter approximately 0.7 cm proximal to the trigone. No calcified calculi or dilatation is seen of the right distal ureter. There is a partially contracted unopacified urinary bladder without calcified calculi or other visible abnormality. There is no abnormality of the uterus or right adnexa. There is a 2.9 cm left ovarian or adnexal cyst. No focal mass or fluid collection is seen. There is no iliac or inguinal lymphadenopathy. No ascites or inflammatory changes are identified. IMPRESSION: 1. 2.5 mm left distal ureteral calcified calculus with mild hydronephrosis and ureteral dilatation. 2. Additional nonobstructing bilateral calcified calyceal calculi. 3. No evidence for other calcified collecting system calculi or obstruction. 4. Nonspecific gallbladder dilatation possibly physiologic. 5. Diffuse fatty metamorphosis of liver. 6. Indeterminate hypodense anterior right renal cortical lesion most likely a cyst. 7. No evidence of mass, lymphadenopathy or inflammatory process. 8. Shallow 4 x 2 mm right posterior subpleural lung nodule or focal pleural thickening. See comments immediately below. 2017 - UPDATED [employer] GUIDELINES FOR MANAGEMENT OF SMALL PULMONARY NODULES DETECTED ON CT Note: Recommendations do not apply for lung cancer screening, patients with immunosuppression or with known cancer. Dimensions are average of long and short axis rounded to the millimeter SOLITARY NODULE: LOW RISK PATIENT <6mm - No follow up 6-8mm - 6-12 months, then consider 18-24 months >8mm - PET/CT, Bx or followup in 3 months SOLITARY NODULE: HIGH RISK PATIENT <6mm - Optional 6-12 months (suspicious morphology or upper lobe) 6-8mm - 6-12 months, then 18-24 months >8mm - PET/CT, Bx or followup in 3 months Report Dictated on Final Dictating Physician: MD HENDERSON HARLAN Signed Date and Time: 08/23/2020 8:45 am Signed by: MD HENDERSON HARLAN Transcribed Date and Time: 08/23/2020 8:47 Normal [facility] Comp Metabolic Panelon 08-23 ALT [Catalytic activity/Vol] 48 U/L High 0-34 [facility] Comment on above: Result Comment: The ALT test is performed by an updated assay method. Please note that the reference intervals have been changed and are now sex specific. Performed By: #### C MP3, QWAL, HEMDF #### [facility] [address] [place] [address] Calcium [Mass/Vol] 9.9 mg/dL Normal 8.4-10.4 [facility] Comment on above: Performed By: #### C MP3, QWAL, HEMDF #### [facility] [address] [place] [address] ALP [Catalytic activity/Vol] 95 U/L Normal 38-126 [facility] Comment on above: Performed By: #### C MP3, QWAL, HEMDF #### [facility] [address] [place] [address] Anion gap [Moles/Vol] 15 Normal [facility] Comment on above: Performed By: #### C MP3, QWAL, HEMDF #### [facility] [address] [place] [address] AST [Catalytic activity/Vol] 41 U/L Normal 15-46 [facility] Comment on above: Performed By: #### C MP3, QWAL, HEMDF #### [facility] [address] [place] [address] Bilirubin [Mass/Vol] 0.8 mg/dL Normal 0.2-1.3 [facility] Comment on above: Performed By: #### C MP3, QWAL, HEMDF #### [facility] [address] [place] [address] CO2 [Moles/Vol] 18 mmol/L Low 22-30 [facility] Comment on above: Performed By: #### C MP3, QWAL, HEMDF #### [facility] [address] [place] [address] Creatinine [Mass/Vol] 0.87 mg/dL Normal 0.52-1.25 [facility] Comment on above: Performed By: #### C MP3, QWAL, HEMDF #### [facility] [address] [place] [address] GFR/1.73 sq M predicted among blacks MDRD (S/P/Bld) [Vol rate/Area] 87.2 mL/min/{1.73_m2} Normal >60 [facility] Comment on above: Performed By: #### C MP3MARIA ISABEL HEMDF #### [facility] [address] [place] [address] GFR/1.73 sq M predicted among non-blacks MDRD (S/P/Bld) [Vol rate/Area] 75.2 mL/min/{1.73_m2} Normal >60 [facility] Comment on above: Result Comment: KDIG O guidelines provide the following GFR categories: Stage GFR(ml/min/1.73 m2) Terms G1 >=90 Normal or high G2 60-89 Mildly decreased* G3a 45-59 Mildly to moderately decreased G3b 30-44 Moderately to severely decreased G4 15-29 Severely decreased G5 <15 Kidney failure *Relative to young adult level. In the absence of evidence of kidney damage, neither GFR category G1 nor G2 fulfill the criteria for CKD. The CKD-EPI equation is validated in individuals 18 years of age and older. Currently the best equation for estimating glomerular filtration rate (GFR) from serum creatinine in children is the Bedside Burnette equation. It is less accurate in patients with extremes of muscle mass, restriction of dietary protein, ingestion of creatine, extra-renal metabolism of creatinine, or treatment with medications that affect renal tubular creatinine secretion. Performed By: #### C FREDDY3MARIA ISABEL HEMDF #### [facility] [address] [place] [address] Glucose [Mass/Vol] 194 mg/dL High 70-100 [facility] Comment on above: Performed By: #### C FREDDY3MARIA ISABEL HEMDF #### [facility] [address] [place] [address] Protein [Mass/Vol] 8.2 g/dL Normal 6.3-8.2 [facility] Comment on above: Performed By: #### C MP3MARIA ISABEL HEMDF #### [facility] [address] [place] [address] Urea nitrogen [Mass/Vol] 19 mg/dL Normal 7-20 [facility] Comment on above: Performed By: #### C MARIA ISABEL SY, HEMDF #### [facility] [address] [place] [address] Potassium [Moles/Vol] 3.7 mmol/L Normal 3.5-5.1 [facility] Comment on above: Performed By: #### C MARIA ISABEL SY, HEMDF #### [facility] [address] [place] [address] Sodium [Moles/Vol] 137 mmol/L Normal 135-145 [facility] Comment on above: Performed By: #### C MARIA ISABEL SY HEMDF #### [facility] [address] [place] [address] Albumin [Mass/Vol] 4.8 g/dL Normal 3.5-5.0 [facility] Comment on above: Performed By: #### C MARIA ISABEL SY HEMDF #### [facility] [address] [place] [address] Chloride [Moles/Vol] 104 mmol/L Normal 98-107 [facility] Comment on above: Performed By: #### C MARIA ISABEL SY HEMDF #### [facility] [address] [place] [address] Complete Urinalysison 2019 Bacteria LM.HPF (Urine sed) [#/Area] Few (1-5) Abnormal Negative [facility] Comment on above: Result Comment: . Performed By: #### C UA2 #### [facility] [address] [place] [address] RBC LM.HPF (Urine sed) [#/Area] 3 - 5 Abnormal 0-2 [facility] Comment on above: Result Comment: . Performed By: #### C UA2 #### [facility] [address] [place] [address] Squamous Epithelial 6 - 10 Abnormal 3-5 [facility] Comment on above: Result Comment: . Performed By: #### C UA2 #### [facility] [address] [place] [address] VOLUME, URINE 8-12 ml Normal [facility] Comment on above: Result Comment: . Performed By: #### C UA2 #### [facility] [address] [place] [address] WBC LM.HPF (Urine sed) [#/Area] 0 - 2 Normal 0-5 [facility] Comment on above: Result Comment: . Performed By: #### C UA2 #### [facility] [address] [place] [address] Appearance (U) Clear Normal Clear [facility] [place] Comment on above: . Result Comment: . Performed By: #### C UA2 #### [facility] [address] [place] [address] Bilirubin,Urine Negative Normal Negative [facility] Comment on above: Result Comment: . Performed By: #### C UA2 #### [facility] [address] [place] [address] Color (U) LIGHT YELLOW Normal Lt. Yellow [place], [place] Comment on above: . Result Comment: . Performed By: #### C UA2 #### [facility] [address] [place] [address] Glucose Ql (U) Normal Normal Normal (<70) [facility] Comment on above: Result Comment: . Performed By: #### C UA2 #### [facility] [address] [place] [address] Ketone,Urine Trace Abnormal Negative [facility] Comment on above: Result Comment: . Performed By: #### C UA2 #### [facility] [address] [place] [address] Leukocytes,Urine Negative Normal Negative [facility] Comment on above: Result Comment: . Performed By: #### C UA2 #### [facility] [address] [place] [address] Nitrites,Urine Negative Normal Negative [facility] Comment on above: Result Comment: . Performed By: #### C UA2 #### [facility] [address] [place] [address] Occult Blood,Urine 0.1 mg/dL Abnormal Negative [place], [place] Comment on above: . Result Comment: . Performed By: #### C UA2 #### [facility] [address] [place] [address] pH (U) 5.5 Normal 5.0-8.0 [facility] Comment on above: Result Comment: . Performed By: #### C UA2 #### [facility] [address] [place] [address] Protein (U) [Mass/Vol] Negative Normal Negative [place], [place] Comment on above: . Result Comment: . Performed By: #### C UA2 #### [facility] [address] [place] [address] Specific [place],Urine 1.019 Normal 1.005 - 1.030 [facility] Comment on above: Result Comment: . Performed By: #### C UA2 #### [facility] [address] [place] [address] Urobilinogen, Urine Normal Normal Normal (0-1) [place], [place] Comment on above: . Result Comment: . Performed By: #### C UA2 #### [facility] [address] [place] [address] Comprehensive Metabolic Pane [facility] 08-23-2020 Albumin [Mass/Vol] 4.8 g/dL 3.5 - 5 g/dL [place], [place] ALP [Catalytic activity/Vol] 95 U/L 38 - 126 U/L [place] ALT [Catalytic activity/Vol] 48 U/L High 0 - 34 U/L [place] Comment on above: The ALT test is perf ormed by an updated assay method. Please note that the reference intervals have been changed and are now sex specific. Anion gap [Moles/Vol] 15 mmol/L [place], [place] AST [Catalytic activity/Vol] 41 U/L 15 - 46 U/L [place] Bilirubin Ql (U) 0.8 mg/dL 0.2 - 1.3 mg/dL [place] Calcium [Mass/Vol] 9.9 mg/dL 8.4 - 10. 4 mg/dL [place] Chloride [Moles/Vol] 104 mmol/L 98 - 10 7 mmol/L [place] CO2 [Moles/Vol] 18 mmol/L Low 22 - 30 mmol/L [place] Creatinine [Mass/Vol] 0.87 mg/dL 0.52 - 1.25 mg/dL [place] EGFR IF NonAfrican Salvadorean 75.2 mL/min >60 [place] Comment on above: KDIGO guidelines pro vide the following GFR categories: Stage GFR(ml/min/1.73 m2) Terms G1 >=90 Normal or high G2 60-89 Mildly decreased* G3a 45-59 Mildly to moderately decreased G3b 30-44 Moderately to severely decreased G4 15-29 Severely decreased G5 <15 Kidney failure *Relative to young adult level. In the absence of evidence of kidney damage, neither GFR category G1 nor G2 fulfill the criteria for CKD. The CKD-EPI equation is validated in individuals 18 years of age and older. Currently the best equation for estimating glomerular filtration rate (GFR) from serum creatinine in children is the Bedside Burnette equation. It is less accurate in patients with extremes of muscle mass, restriction of dietary protein, ingestion of creatine, extra-renal metabolism of creatinine, or treatment with medications that affect renal tubular creatinine secretion. GFR/1.73 sq M predicted among blacks MDRD (S/P/Bld) [Vol rate/Area] 87.2 mL/min/{1.73_m2} >60 [place] Glucose [Mass/Vol] 194 mg/dL High 70 - 100 mg/dL [place] Potassium [Moles/Vol] 3.7 mmol/L 3.5 - 5.1 mmol/L [place] Protein [Mass/Vol] 8.2 g/dL 6.3 - 8.2 g/dL [place] Sodium [Moles/Vol] 137 mmol/L 135 - 145 mmol/L [place] Urea nitrogen [Mass/Vol] 19 mg/dL 7 - 20 mg/dL [place] HCG Qualitative, Serumon hCG Qual Negative m[IU]/mL [place] Comment on above: Reference Range: NEG ATIVE Effective 01/18/2020, the reference interval for the qualitative test has been updated. This test detects hCG at concentrations of 10 mIU/mL or greater in serum. Hemogram (CBC) w/Auto Diffon 08-23-2020 Absolute Baso # 0.0 10*3/uL 0 - 0.2 10*3/uL [place] Absolute Neut # 6.4 10*3/uL 1.8 - 7 10*3/uL [place] Basophils/100 WBC (Bld) 0.3 % 0 - 2 % [place], [place] Eosinophils (Bld) [#/Vol] 0.2 10*3/uL 0 - 0.5 10*3/uL [place] Eosinophils/100 WBC (Bld) 1.8 % 1 - 6 % [place] Erythrocyte distribution width (RBC) [Ratio] 13.5 % 11.5 - 14.5 % [place] Granulocytes/100 WBC (Bld) 58.5 % 40 - 80 % [place] Hematocrit (Bld) [Volume fraction] 42.1 % 35 - 47 % [place] Hemoglobin (Bld) [Mass/Vol] 13.9 g/dL 11.7 - 16 g/dL [place] Lymphocytes (Bld) [#/Vol] 3.7 10*3/uL 1 - 4.3 10*3/uL [place] Lymphocytes/100 WBC (Bld) 34.0 % 20 - 40 % [place] MCH (RBC) [Entitic mass] 28.7 pg 26 - 34 pg [place] MCHC (RBC) [Mass/Vol] 32.9 % 32 - 36 % [place], [place] MCV (RBC) [Entitic vol] 87.1 fL 79 - 98 fL [place], [place] Monocytes (Bld) [#/Vol] 0.6 10*3/uL 0 - 0.8 10*3/uL [place] Monocytes/100 WBC (Bld) 5.4 % 2 - 10 % [place], [place] Platelet mean volume (Bld) [Entitic vol] 7.7 fL 7.4 - 10.4 fL [place] Platelets (Bld) [#/Vol] 236 10*3/uL 140 - 440 10*3/uL [place] RBC (Bld) [#/Vol] 4.83 10*6/uL 3.8 - 5.2 10*6/uL [place] WBC (Bld) [#/Vol] 10.9 10*3/uL High 3.6 - 10.7 10*3/uL [place] Hemogram w/ Autodiffon 08-23 Abs Baso Cnt 0.0 10*3/uL Normal 0.0-0.2 [facility] Comment on above: Performed By: #### C MP3, QWAL, HEMDF #### [facility] [address] [place] [address] Abs Neutrophile Cnt 6.4 10*3/uL Normal 1.8-7.0 [facility] Comment on above: Performed By: #### C MP3, QWAL, HEMDF #### [facility] [address] [place] [address] Basophils/100 WBC (Bld) 0.3 % Normal 0.0-2.0 [facility] Comment on above: Performed By: #### C MP3, QWAL, HEMDF #### [facility] [address] [place] [address] Eosinophils (Bld) [#/Vol] 0.2 10*3/uL Normal 0.0-0.5 [facility] Comment on above: Performed By: #### C MP3, QWAL, HEMDF #### [facility] [address] [place] [address] Eosinophils/100 WBC (Bld) 1.8 % Normal 1.0-6.0 [facility] Comment on above: Performed By: #### C MP3, QWAL, HEMDF #### [facility] [address] [place] [address] Erythrocyte distribution width (RBC) [Ratio] 13.5 % Normal 11.5-14.5 [facility] Comment on above: Performed By: #### C MP3, QWAL, HEMDF #### [facility] [address] [place] [address] Granulocytes/100 WBC (Bld) 58.5 % Normal 40.0-80.0 [facility] Comment on above: Performed By: #### C MP3, QWAL, HEMDF #### [facility] [address] [place] [address] Hematocrit (Bld) [Volume fraction] 42.1 % Normal 35.0-47.0 [facility] Comment on above: Performed By: #### C MP3, QWAL, HEMDF #### [facility] [address] [place] [address] Hemoglobin (Bld) [Mass/Vol] 13.9 g/dL Normal 11.7-16.0 [facility] Comment on above: Performed By: #### C MP3, QWAL, HEMDF #### [facility] [address] [place] [address] Lymphocytes (Bld) [#/Vol] 3.7 10*3/uL Normal 1.0-4.3 [facility] Comment on above: Performed By: #### C MP3, QWAL, HEMDF #### [facility] [address] [place] [address] Lymphocytes/100 WBC (Bld) 34.0 % Normal 20.0-40.0 [facility] Comment on above: Performed By: #### C MP3, QWAL, HEMDF #### [facility] [address] [place] [address] MCH (RBC) [Entitic mass] 28.7 pg Normal 26.0-34.0 [facility] Comment on above: Performed By: #### C MP3, QWAL, HEMDF #### [facility] [address] [place] [address] MCHC (RBC) [Mass/Vol] 32.9 % Normal 32.0-36.0 [facility] Comment on above: Performed By: #### C MP3, QWAL, HEMDF #### [facility] [address] [place] [address] MCV (RBC) [Entitic vol] 87.1 fL Normal 79.0-98.0 [facility] Comment on above: Performed By: #### C MP3, QWAL, HEMDF #### [facility] [address] [place] [address] Monocytes (Bld) [#/Vol] 0.6 10*3/uL Normal 0.0-0.8 [facility] Comment on above: Performed By: #### C MP3, QWAL, HEMDF #### [facility] [address] [place] [address] Monocytes/100 WBC (Bld) 5.4 % Normal 2.0-10.0 [facility] Comment on above: Performed By: #### C MP3, QWAL, HEMDF #### [facility] [address] [place] [address] Platelet mean volume (Bld) [Entitic vol] 7.7 fL Normal 7.4-10.4 [facility] Comment on above: Performed By: #### C MP3, QWAL, HEMDF #### [facility] [address] [place] [address] Platelets (Bld) [#/Vol] 236 10*3/uL Normal 140-440 [facility] Comment on above: Performed By: #### C MP3, QWAL, HEMDF #### [facility] [address] [place] [address] RBC (Bld) [#/Vol] 4.83 10*6/uL Normal 3.80-5.20 [facility] Comment on above: Performed By: #### C MP3, QWAL, HEMDF #### [facility] [address] [place] [address] WBC (Bld) [#/Vol] 10.9 10*3/uL High 3.6-10.7 [facility] Comment on above: Performed By: #### C MP3, QWAL, HEMDF #### [facility] [address] [place] [address] Otheron 08-23-2020 Test Performed by [facility], [address] , [place], [place] [address] [place] Interpretation and review of laboratory results Abnormal [place] Urinalysison 08-23-2020 Bacteria, UA Few (1-5) Abnormal Negative /[HPF] [place] Comment on above: . Bilirubin Urine Negative Negative mg/dL [place] Comment on above: . Glucose, Ur Normal Normal (<70) mg/dL [place] Comment on above: . Ketones Ql (U) Trace Abnormal Negative mg/dL [place] Comment on above: . LEUKOCYTES, UA Negative Negative Enrike/uL [place] Comment on above: . Nitrite, Urine Negative Negative NA [place] Comment on above: . pH (U) 5.5 [pH] [place] Comment on above: . RBC (U) [#/Vol] 3-5 Abnormal 0 - 2 /[HPF] [place] Comment on above: . Specific [place], Urine 1.019 M [place], [place] Comment on above: . Squam Epithel, UA 6-10 Abnormal 3 - 5 /[HPF] [place] Comment on above: . Volume 8-12 ml [place] Comment on above: . WBC, UA 0-2 0 - 5 /[HPF] [place] Comment on above: . hCG Qual [place] 08-23-2020 hCG Qual Preg Negative Normal [facility] Comment on above: Result Comment: Refe rence Range: NEGATIVE Effective 01/18/2020, the reference interval for the qualitative test has been updated. This test detects hCG at concentrations of 10 mIU/mL or greater in serum. Performed By: #### C MARIA ISABEL SY, HEMDF #### [facility] [address] [place] [address] Vital Signs Date Time Vital Sign Value Performing Clinician Fredi barker 05-24-2025 13:04-0400 Body height 147.[address] Forest Curtis MD Work Phone: [phone] [place] [address] 05-24-2025 13:00-0400 Body mass index (BMI) [Ratio] 30.5 kg/m2 Dr. Forest Curtis MD Work Phone: [phone] [place] [address] 05-24-2025 13:00-0400 Body weight 66.[address] Forest Curtis MD Work Phone: [phone] [place] [address] 05-24-2025 13:00-0400 Diastolic blood pressure 81 mm[Hg] Dr. Forest Curtis MD Work Phone: [phone] [place] [address] 05-24-2025 13:00-0400 Systolic blood pressure 143 mm[Hg] Dr. Forest Curtis MD Work Phone: [phone] [place] [address] 03-31-2025 09:39-0400 Body height 147.[address] Forest Curtis MD Work Phone: [phone] [place] [address] 03-31-2025 09:39-0400 Body mass index (BMI) [Ratio] 30.1 kg/m2 Dr. Forest Curtis MD Work Phone: [phone] [place] [address] 03-31-2025 09:39-0400 Body weight 65.[address] Forest Curtis MD Work Phone: [phone] [place] [address] 03-31-2025 09:39-0400 Diastolic blood pressure 86 mm[Hg] Dr. Forest Curtis MD Work Phone: [phone] [place] [address] 03-31-2025 09:39-0400 Systolic blood pressure 134 mm[Hg] Dr. Forest Curtis MD Work Phone: [phone] [place] [address] 02-23-2025 11:30-0400 Body height 147.[address] Forest Curtis MD Work Phone: [phone] [place] [address] 02-23-2025 11:30-0400 Body mass index (BMI) [Ratio] 30.5 kg/m2 Dr. Forest Curtis MD Work Phone: [phone] [place] [address] 02-23-2025 11:30-0400 Body weight 66.[address] Forest Curtis MD Work Phone: [employer] [facility] 02-23-2025 11:30-0400 Diastolic blood pressure 81 mm[Hg] Dr. Forest Curtis MD Work Phone: [facility] 02-23-2025 11:30-0400 Heart rate 73 /min Dr. Forest Curtis MD Work Phone: [facility] 02-23-2025 11:30-0400 Systolic blood pressure 146 mm[Hg] Dr. Forest Curtis MD Work Phone: [facility] 12-08-2024 05:52-0500 Body temperature 97.8 [degF] Dr. Forest Curtis MD Work Phone: 4(996)157-106442 [place] [address] 12-08-2024 05:52-0500 Diastolic blood pressure 70 mm[Hg] Dr. Forest Curtis MD Work Phone: 7(801)133-203642 [place] [address] 12-08-2024 05:52-0500 Heart rate 83 /min Dr. Forest Curtis MD Work Phone: [facility] 12-08-2024 05:52-0500 Respiratory rate 18 /min Dr. Forest Curtis MD Work Phone: [facility] 12-08-2024 05:52-0500 SaO2% (BldA) [Mass fraction] 100 % Dr. Forest Curtis MD Work Phone: [facility] 12-08-2024 05:52-0500 Systolic blood pressure 156 mm[Hg] Dr. Forest Curtis MD Work Phone: [facility] 12-08-2024 02:43-0500 Body mass index (BMI) [Ratio] 29.7 kg/m2 Dr. Forest Curtis MD Work Phone: [facility] 12-08-2024 02:43-0500 Body weight 64.[address] Forest Curtis MD Work Phone: [facility] 02-02-2024 11:06-0400 Body height 147.[address] Forest Curtis Work Phone: [facility] 02-02-2024 11:04-0400 Body mass index (BMI) [Ratio] 28.9 kg/m2 Dr. Forest Curtis Work Phone: [facility] 02-02-2024 11:04-0400 Body weight 62.[address] Forest Curtis Work Phone: [facility] 02-02-2024 11:04-0400 Diastolic blood pressure 80 mm[Hg] Dr. Forest Curtis Work Phone: [facility] 02-02-2024 11:04-0400 Heart rate 68 /min Dr. Forest Curtis Work Phone: [facility] 02-02-2024 11:04-0400 Systolic blood pressure 126 mm[Hg] Dr. Forest Curtis Work Phone: [facility] 01-19-2024 07:00-0400 Body temperature 97.8 [degF] Dr. Forest Curtis Work Phone: [facility] 01-19-2024 07:00-0400 Diastolic blood pressure 80 mm[Hg] Dr. Forest Curtis Work Phone: [facility] 01-19-2024 07:00-0400 Heart rate 80 /min Dr. Forest Curtis Work Phone: [facility] 01-19-2024 07:00-0400 Respiratory rate 12 /min Dr. Forest Curtis Work Phone: [facility] 01-19-2024 07:00-0400 SaO2% (BldA) [Mass fraction] 99 % Dr. Forest Curtis Work Phone: [facility] 01-19-2024 07:00-0400 Systolic blood pressure 122 mm[Hg] Dr. Forest Curtis Work Phone: [facility] 11-20-2023 06:08-0500 Body temperature 97.8 [degF] Dr. Forest Curtis Work Phone: [facility] 11-20-2023 06:08-0500 Diastolic blood pressure 72 mm[Hg] Dr. Forest Curtis Work Phone: [facility] 11-20-2023 06:08-0500 Heart rate 86 /min Dr. Forest Curtis Work Phone: [facility] 11-20-2023 06:08-0500 Respiratory rate 12 /min Dr. Forest Curtis Work Phone: [facility] 11-20-2023 06:08-0500 SaO2% (BldA) [Mass fraction] 98 % Dr. Forest Curtis Work Phone: [facility] 11-20-2023 06:08-0500 Systolic blood pressure 117 mm[Hg] Dr. Forest Curtis Work Phone: 3(040)176-672288 [address] 11-03-2023 15:00-0500 Body mass index (BMI) [Ratio] 29 kg/m2 Dr. Forest Curtis Work Phone: 0(988)176-670542 [place] [address] 11-03-2023 15:00-0500 Body weight 63.[address] Forest Curtis Work Phone: 6(418)973-265242 [place] [address] 11-03-2023 15:00-0500 Diastolic blood pressure 74 mm[Hg] Dr. Forest Curtis Work Phone: [facility] 11-03-2023 15:00-0500 Heart rate 73 /min Dr. Forest Curtis Work Phone: [facility] 11-03-2023 15:00-0500 Systolic blood pressure 115 mm[Hg] Dr. Forest Curtis Work Phone: [facility] 09-09-2023 11:48-0500 Body height 147.[address] Forest Curtis Work Phone: [facility] 09-09-2023 11:42-0500 Body mass index (BMI) [Ratio] 29.5 kg/m2 Dr. Forest Curtis Work Phone: [facility] 09-09-2023 11:42-0500 Body weight 64.[address] Forest Curtis Work Phone: [facility] 09-09-2023 11:42-0500 Diastolic blood pressure 72 mm[Hg] Dr. Forest Curtis Work Phone: [facility] 09-09-2023 11:42-0500 Heart rate 66 /min Dr. Forest Curtis Work Phone: [facility] 09-09-2023 11:42-0500 Systolic blood pressure 138 mm[Hg] Dr. Forest Curtis Work Phone: [facility] 08-28-2023 16:38-0500 Body height 147.[address] Forest Curtis Work Phone: [facility] 08-28-2023 16:38-0500 Body mass index (BMI) [Ratio] 29.2 kg/m2 Dr. Forest Curtis Work Phone: [facility] 08-28-2023 16:38-0500 Body temperature 98.4 [degF] Dr. Forest Curtis Work Phone: [facility] 08-28-2023 16:38-0500 Body weight 63.[address] Forest Curtis Work Phone: [facility] 08-28-2023 16:38-0500 Diastolic blood pressure 79 mm[Hg] Dr. Forest Curtis Work Phone: [facility] 08-28-2023 16:38-0500 Heart rate 71 /min Dr. Forest Curtis Work Phone: [facility] 08-28-2023 16:38-0500 Respiratory rate 16 /min Dr. Forest Curtis Work Phone: [facility] 08-28-2023 16:38-0500 SaO2% (BldA) [Mass fraction] 97 % Dr. Forest Curtis Work Phone: [facility] 08-28-2023 16:38-0500 Systolic blood pressure 144 mm[Hg] Dr. Forest Curtis Work Phone: [facility] 08-05-2023 08:10-0400 Body mass index (BMI) [Ratio] 30.3 kg/m2 Dr. Forest Curtis Work Phone: [facility] 08-05-2023 08:10-0400 Body weight 65.[address] Forest Curtis Work Phone: [facility] 08-05-2023 08:10-0400 Diastolic blood pressure 72 mm[Hg] Dr. Forest Curtis Work Phone: [facility] 08-05-2023 08:10-0400 Heart rate 59 /min Dr. Forest Curtis Work Phone: [facility] 08-05-2023 08:10-0400 Systolic blood pressure 112 mm[Hg] Dr. Forest Curtis Work Phone: [facility] 07-22-2023 11:22-0400 Body height 147.[address] Forest Curtis Work Phone: 1(648)768-575042 [place] [address] 07-22-2023 11:22-0400 Body mass index (BMI) [Ratio] 31.4 kg/m2 Dr. Forest Curtis Work Phone: 4(374)839-705442 [place] [address] 07-22-2023 11:22-0400 Body weight 68.[address] Forest Curtis Work Phone: [facility] 07-22-2023 11:22-0400 Diastolic blood pressure 80 mm[Hg] Dr. Forest Curtis Work Phone: [facility] 07-22-2023 11:22-0400 Systolic blood pressure 152 mm[Hg] Dr. Forest Curtis Work Phone: [facility] 01-30-2023 16:15-0400 Body height 147.[address] Forest Curtis Work Phone: 4(792)742-586542 [place] [address] 01-30-2023 16:04-0400 Body mass index (BMI) [Ratio] 32.3 kg/m2 Dr. Forest Curtis Work Phone: 1(199)464-037142 [place] [address] 01-30-2023 16:04-0400 Body weight 70.[address] Forest Curtis Work Phone: [facility] 04-01-2022 10:42-0400 Diastolic blood pressure 74 mm[Hg] Dr. Forest Curtis Work Phone: [facility] Work Phone: 04-01-2022 10:42-0400 Heart rate 87 /min Dr. Forest Curtis Work Phone: [facility] Work Phone: 04-01-2022 10:42-0400 Respiratory rate 16 /min Dr. Forest Curtis Work Phone: [facility] Work Phone: 04-01-2022 10:42-0400 SaO2% (BldA) [Mass fraction] 99 % Dr. Forest Curtis Work Phone: [facility] Work Phone: 04-01-2022 10:42-0400 Systolic blood pressure 145 mm[Hg] Dr. Forest Curtis Work Phone: [facility] Work Phone: 04-01-2022 07:27-0400 Body height 147.[address] Forest Curtis Work Phone: [facility] Work Phone: 04-01-2022 07:27-0400 Body mass index (BMI) [Ratio] 32.3 kg/m2 Dr. Forest Curtis Work Phone: [facility] Work Phone: 04-01-2022 07:27-0400 Body temperature 97 [degF] Dr. Forest Curtis Work Phone: [facility] Work Phone: 04-01-2022 07:27-0400 Body weight 70.[address] Forest Curtis Work Phone: [facility] Work Phone: 02-05-2022 11:34-0400 Body mass index (BMI) [Ratio] 29.2 kg/m2 Dr. Forest Curtis Work Phone: [facility] Work Phone: 02-05-2022 11:34-0400 Body weight 68.[address] Forest Curtis Work Phone: [facility] Work Phone: 02-05-2022 11:34-0400 Diastolic blood pressure 90 mm[Hg] Dr. Forest Curtis Work Phone: [facility] Work Phone: 02-05-2022 11:34-0400 Systolic blood pressure 150 mm[Hg] Dr. Forest Curtis Work Phone: [facility] Work Phone: 12-25-2021 10:26-0400 Body temperature 97.7 [degF] Dr. Perlita Perry Work Phone: [facility] Work Phone: 12-25-2021 10:26-0400 Diastolic blood pressure 84 mm[Hg] Dr. Perlita Perry Work Phone: [facility] Work Phone: 12-25-2021 10:26-0400 Heart rate 66 /min Dr. Perlita Perry Work Phone: [facility] Work Phone: 12-25-2021 10:26-0400 Respiratory rate 16 /min Dr. Perlita Perry Work Phone: [facility] Work Phone: 12-25-2021 10:26-0400 SaO2% (BldA) [Mass fraction] 97 % Dr. Perlita Perry Work Phone: [facility] Work Phone: 12-25-2021 10:26-0400 Systolic blood pressure 131 mm[Hg] Dr. Perlita Perry Work Phone: [facility] Work Phone: 12-25-2021 07:04-0400 Body height 147.[address] Perlita Perry Work Phone: [facility] Work Phone: 12-25-2021 07:04-0400 Body mass index (BMI) [Ratio] 32.2 kg/m2 Dr. Perlita Perry Work Phone: [facility] Work Phone: 12-25-2021 07:04-0400 Body weight [address] Perlita Perry Work Phone: [facility] Work Phone: 11-26-2021 08:55-0500 Body mass index (BMI) [Ratio] 31.9 kg/m2 Dr. Perlita Perry Work Phone: [facility] Work Phone: 11-26-2021 08:55-0500 Body weight 69.[address] Perlita Perry Work Phone: [facility] Work Phone: 11-24-2021 01:41-0500 Respiratory rate 18 /min Dr. Perlita Perry Work Phone: [facility] Work Phone: 11-23-2021 22:38-0500 Body mass index (BMI) [Ratio] 31.3 kg/m2 Dr. Perlita Perry Work Phone: [facility] Work Phone: 11-23-2021 22:38-0500 Body temperature 96.3 [degF] Dr. Perlita Perry Work Phone: [facility] Work Phone: 11-23-2021 22:38-0500 Body weight 68.[address] Perlita Perry Work Phone: [facility] Work Phone: 11-23-2021 22:38-0500 Diastolic blood pressure 128 mm[Hg] Dr. Perlita Perry Work Phone: [facility] Work Phone: 11-23-2021 22:38-0500 Heart rate 113 /min Dr. Perlita Perry Work Phone: [facility] Work Phone: 11-23-2021 22:38-0500 SaO2% (BldA) [Mass fraction] 98 % Dr. Perlita Perry Work Phone: [facility] Work Phone: 11-23-2021 22:38-0500 Systolic blood pressure 159 mm[Hg] Dr. Perlita Perry Work Phone: [facility] Work Phone: 11-05-2021 15:49-0500 Body temperature 97.1 [degF] Dr. Perlita Perry Work Phone: [facility] Work Phone: 11-05-2021 15:49-0500 Diastolic blood pressure 90 mm[Hg] Dr. Perlita Perry Work Phone: [facility] Work Phone: 11-05-2021 15:49-0500 Heart rate 80 /min Dr. Perlita Perry Work Phone: [facility] Work Phone: 11-05-2021 15:49-0500 Respiratory rate 16 /min Dr. Perlita Perry Work Phone: [facility] Work Phone: 11-05-2021 15:49-0500 SaO2% (BldA) [Mass fraction] 97 % Dr. Perlita Perry Work Phone: [facility] Work Phone: 11-05-2021 15:49-0500 Systolic blood pressure 146 mm[Hg] Dr. Perlita Perry Work Phone: [facility] Work Phone: 11-05-2021 11:37-0500 Body mass index (BMI) [Ratio] 33.3 kg/m2 Dr. Perlita Perry Work Phone: [facility] Work Phone: 11-05-2021 11:37-0500 Body weight 72.[address] Perlita Perry Work Phone: [facility] Work Phone: 11-01-2021 14:21-0500 Body mass index (BMI) [Ratio] 32.3 kg/m2 Dr. Perlita Perry Work Phone: [facility] Work Phone: 11-01-2021 14:21-0500 Body weight 70.[address] Perlita Perry Work Phone: [facility] Work Phone: 08-23-2020 09:32-0500 BP Diastolic 82 mm[Hg] [place], [place] 08-23-2020 09:32-0500 BP Systolic 141 mm[Hg] [place] 08-23-2020 09:32-0500 Pulse (Heart Rate) 72 /min [place] 08-23-2020 09:32-0500 Pulse Oximetry 100 % [place] 08-23-2020 09:32-0500 Respiratory Rate 16 /min [place] 08-23-2020 06:50-0500 BMI (Body Mass Index) 31.35 kg/m2 [place] 08-23-2020 06:50-0500 Body Temperature 97.9 [degF] [place] 08-23-2020 06:50-0500 Body weight 68.04 kg [place] 08-23-2020 06:50-0500 Height 147.3 cm [place] Encounters Encounter Date Encounter Type Care Provider Facility Start: 05-24-2025 End: 05-24-[address] [facility] Work Phone: Start: 05-24-2025 End: 05-24-[address] Forest Curtis [facility] Phone[facility] Start: 04-12-2025 Non-patient / Non-visit Dr. Uma block MD -[facility] Work Phone: Start: 04-07-2025 End: 04-07-[address] Forest Curtis MD Work Phone: -[facility]patient [facility] Start: 04-07-2025 End: 04-07-[address] Moon Slater MD -[facility] Work Phone: Start: 04-07-2025 End: 04-07-2025 ambulatory Forest Curtis Facility:[facility] Start: 03-31-2025 End: 03-31-2025 Patient encounter procedure Susannah NORRIS -[facility] Work Phone: Start: 03-31-2025 End: 03-31-[address] Forest Curtis MD Work Phone: [facility] Work Phone: Start: 03-09-2025 Encounter for antibo dy response examination Forest Curtis [facility] Start: 03-02-2025 End: 03-02-[address] Forest Curtis MD Work Phone: [facility] Work Phone: Start: 03-02-2025 End: 03-02-[address] Forest Curtis MD -Laboratory Work Phone: Start: 03-02-2025 End: 03-02-2025 ambulatory Forest Curtis Facility:[facility] Start: 02-23-2025 End: 02-23-2025 Patient encounter procedure Susannah NORRIS -[facility] Work Phone: Start: 02-23-2025 End: 02-23-[address] Forest Curtis MD Work Phone: [facility] Work Phone: Start: 02-21-2025 End: 02-21-[address] Forest Curtis MD Work Phone: [facility] Work Phone: Start: 02-21-2025 End: 02-21-[address] Uma Graham MD -Cat Scan, [facility] Work Phone: Start: 02-21-2025 End: 02-21-2025 ambulatory Uma Graham Facility:[facility] Start: 12-08-2024 End: 12-08-2024 Emergency department patient visit Dr. Montez Nance DO -Emergency Department Work Phone: Start: 09-13-2024 End: 09-13-2024 ambulatory Forest Curtis Facility:[facility] Start: 08-31-2024 End: 08-31-2024 ambulatory Massimo BAEZ Facility:[facility] Start: 08-30-2024 End: 08-31-2024 ambulatory Massimo BAEZ Facility:[facility] Start: 02-02-2024 End: 02-02-[address] Forest Curtis Work Phone: [facility] Work Phone: Start: 02-02-2024 End: 02-02-[address] Forest Curtis Work Phone: [facility] Work Phone: Start: 01-19-2024 End: 01-19-[address] Forest Curtis Work Phone: [facility] Work Phone: Start: 12-12-2023 End: 12-12-[address] Forest Curtis Work Phone: [facility]-Outpatient Breast Imaging Work Phone: Start: 11-20-2023 End: 11-20-[address] [facility] Work Phone: Start: 11-03-2023 End: 11-03-[address] Forest Curtis Work Phone: [facility] Work Phone: Start: 09-11-2023 End: 09-11-[address] Forest Curtis Work Phone: [facility] Work Phone: Start: 09-11-2023 End: 09-11-[address] Forest Curtis Work Phone: [facility]-Radiology, H Work Phone: Start: 09-09-2023 End: 09-09-[address] Forest Curtis Work Phone: [facility] Work Phone: Start: 08-28-2023 End: 08-28-[address] Forest Curtis Work Phone: [facility] Work Phone: Start: 08-28-2023 End: 08-28-[address] Forest Curtis Work Phone: [facility]-Laboratory, Specimen Work Phone: Start: 08-28-2023 End: 08-28-[address] Forest Curtis Work Phone: [facility] Work Phone: Start: 08-05-2023 End: 08-05-[address] Froest Curtis Work Phone: [facility] Work Phone: Start: 07-24-2023 End: 07-24-[address] Forest Curtis Work Phone: [facility] Work Phone: Start: 07-24-2023 End: 07-24-[address] Forest Curtis Work Phone: [facility]-Pulmonary Services/Neurology Work Phone: Start: 07-22-2023 End: 07-22-[address] Forest Curtis Work Phone: [facility] Work Phone: Start: 04-09-2023 End: 04-09-[address] Forest Curtis Work Phone: [facility] Work Phone: Start: 04-09-2023 End: 04-09-[address] Forest Curtis [facility] Start: 01-30-2023 End: 01-30-[address] Forest Curtis Work Phone: [facility] Work Phone: Start: 08-29-2022 End: 08-29-2022 ambulatory [facility] Work Phone: Start: 08-29-2022 End: 08-29-2022 Patient encounter procedure [facility]-Outpatient Breast Imaging Start: 04-16-2022 End: 04-16-[address] Forest Curtis Work Phone: [facility]-Ultrasound, [facility] Start: 04-01-2022 End: 04-01-2022 Emergency department patient visit Dr. Forest Curtis Work Phone: [facility]-Emergency Department Start: 02-05-2022 End: 02-05-[address] Forest Curtis Work Phone: [facility] Start: 01-10-2022 End: 01-10-[address] Perlita Perry Work Phone: [facility]-Radiology, [place] Start: 12-25-2021 End: 12-25-2021 Admission to same day surgery center Dr. Perlita Perry Work Phone: [facility]-Surgical Day Care Start: 12-25-2021 Non-patient / Non-visit Dr. Miryam Perry Work Phone: [facility] Start: 12-25-2021 Non-patient / Non-visit Dr. Miryam Perry Work Phone: [facility] Start: 12-10-2021 End: 12-10-[address] Perlita Perry Work Phone: [facility]-Cardiovascu lar Services Start: 12-07-2021 End: 12-07-[address] Perlita Perry Work Phone: [facility], [facility] Start: 11-26-2021 End: 11-26-[address] Perlita Perry Work Phone: [facility]-Laboratory, Specimen Start: 11-23-2021 End: 11-24-2021 Emergency department patient visit Dr. Perlita Perry Work Phone: [facility]-Emergency Department Start: 11-05-2021 End: 11-05-2021 Admission to same day surgery center Dr. Perlita Perry Work Phone: [facility] Start: 11-01-2021 End: 11-01-[address] Perlita Perry Work Phone: [facility]-Laboratory, Specimen Start: 11-01-2021 End: 11-01-[address] Perlita Perry Work Phone: [facility] Start: 10-26-2021 End: 10-26-[address] Perlita Perry Work Phone: [facility]-Cat Scan, [facility] Start: 10-17-2021 End: 10-17-[address] Perlita Perry Work Phone: [facility]-Radiology, [place] Start: 08-23-2020 End: 08-23-2020 Emergency department patient visit Jus Ivey Work Phone: [facility] ED Comment on above: Ureterolithiasis (Pr imary Dx); Pulmonary nodule, right Procedures Date Procedure Procedure Detail Performing Clinician Start: 04-07-[address] Forest Mahmood Work Phone: Start: 02-21-2025 CT of abdomen and pelvis without contrast Dr. Forest Curtis MD Work Phone: Start: 12-08-2024 Urnls dip stick/tablet reagent auto microscopy Dr. Forest Curtis MD Work Phone: Start: 12-08-2024 CT of abdomen and pelvis without contrast Dr. Forest Curtis MD Work Phone: Start: 12-08-[address] Forest Curtis MD Work Phone: Start: 12-12-[address] Forest Curtis Work Phone: Start: 09-11-2023 Plain chest X-ray Dr. Forest Curtis Work Phone: Start: 08-28-[address] Forest Curtis Work Phone: Start: 04-09-2023 Diagnostic radiography of abdomen Dr. Forest Curtis Work Phone: Start: 08-29-2022 Screening mammography Start: 04-16-[address] Forest Curtis Work Phone: Start: 04-01-2022 CT of abdomen and pelvis without contrast Dr. Forest Curtis Work Phone: Start: 01-10-2022 Diagnostic radiography of abdomen Dr. Perlita Perry Work Phone: Start: 12-07-2021 CT of thorax with contrast Dr. Perlita gilbert Work Phone: Start: 11-26-[address] Perlita Perry Work Phone: Start: 11-23-2021 CT of abdomen and pelvis without contrast Dr. Perlita Perry Work Phone: Start: 11-05-[address] Perlita Perry Work Phone: Start: 11-05-[address] Perlita Perry Work Phone: Start: 10-26-2021 CT of abdomen and pelvis without contrast Dr. Perlita Perry Work Phone: Start: 10-17-2021 Diagnostic radiography of abdomen Dr. Perlita Perry Work Phone: Start: 08-23-2020 Urnls dip stick/tablet rgnt auto w/o microscopy Jus Ivey Work Phone: Start: 08-23-2020 Ct abdomen & pelvis w/o contrast material Jus Ivey Work Phone: Start: 08-23-2020 Blood count complete auto&auto difrntl wbc Jus Ivey Work Phone: Start: 08-23-2020 Comprehensive metabolic panel Jus Ivey Work Phone: Start: 08-23-2020 Gonadotropin chorionic qualitative Jus Ivey Work Phone: H/O: surgery H/O dilation and curettage Dr. Perlita Perry Work Phone: Plan of Treatment Date Care Activity Detail Author Start: 12-08-2024 [facility] Start: 02-02-2024 Patient referral [facility] Work Phone: Start: 12-25-2021 Anes lithotrp xtrcorp shock wave w/o water bath ANESTH KIDNEY STONE DESTRUCT [facility] Work Phone: Start: 12-25-2021 Hysteroscopy bx endometrium&/polypc w/wo d&c HYSTEROSCOPY BIOPSY [facility] Work Phone: Start: 12-25-2021 Lithotripsy xtrcorp shock wave FRAGMENTING OF KIDNEY STONE [facility] Work Phone: Start: 12-25-2021 Patient discharge [facility] Work Phone: Start: 06-13-2020 Influenza vaccination [facility] [place] Patient Education [facility] Work Phone: Patient referral [facility] Work Phone: Payers Date Payer Category Payer Self-pay [id number] 2012 Unknown [id number] Unknown [id number] 2.16.8 [id number] Unknown [id number] 2.16.8 [id number] Unknown [id number] 2.16.8 [id number] Unknown [id number] 2.16.8 [id number] Unknown [id number] 2.16.8 [id number] Unknown [id number] 2.16.8 [id number] Unknown [id number] 2.16.8 [id number] Unknown [id number] 2.16.8 [id number] Unknown [id number] 2.16.8 [id number] Unknown [id number] 2.16.8 [id number] Unknown [id number] 2.16.8 [id number] Social History Date Type Detail Facility Start: 08-23-2020 End: 03-31-2025 Tobacco smoking status NHIS Never smoker [facility] Start: 08-23-2020 Alcohol intake Ex-drinker (finding) [place], [place] Sex Assigned At Not on file [place] Exposure to SARS-CoV -2 (event) Not sure [place] Start: 11-26-2021 End: 02-02-2024 Tobacco smoking status NHIS Unknown if ever smoked [facility] Start: 1965 Sex Assigned At Female W [facility] Goals Date Patient Goal Desired Activity /State Functional Status Date Assessment Result Facility 12-25-2021 Functional status [facility] [facility] Work Phone: 11-05-2021 Functional status [facility] Work Phone: Mental Status Date Assessment Result Facility 12-25-2021 Cognitive function Voice/Name [facility] Work Phone: 12-25-2021 Cognitive function Patient Orien tation Person;Place;Time [facility] Work Phone: 11-05-2021 Cognitive function Voice/Name [facility] Work Phone: Clinical Notes 02-02-2024 to 05-24-2025 Note Date & Type Note Facility 05-24-2025 Progress note [facility] 03-31-2025 Progress note [facility] 02-23-2025 Evaluation note Diagnosis Onset Date Resolution Other obesity acute February 23, 11:28am Overweight (BMI 25.0-29.9) acute February 23, 2025 11:28am Renal calculus acute February 23, 2025 11:28am Sleep apnea acute February 23 11:28am Hypertension chronic February 23 11:28am [facility] Work Phone: 1(783) 906-549505-14-2025 Evaluation note* Diagnosis Onset Date Resolution Status Admit Date Other obesity acute February 23, 11:28am Overweight (BMI 25.0-29.9) acute February 23, 2025 11:28am Renal calculus acute February 23, 2025 11:28am Sleep apnea acute February 23 11:28am Hypertension chronic February 23 11:28am Other obesity acute March 31, 2025 9:29am Overweight (BMI 25.0-29.9) acute March 31, 2025 9:29am Renal calculus acute March 31, 2025 9:29am Sleep apnea acute March 31 9:29am Hypertension chronic March 31, 025 9:29am [facility] Work Phone: 1(172) 482-992005-14-2025 Evaluation note* Diagnosis Onset Date Resolution Status Admit Date Other obesity acute February 23, 2 025 11:28am Overweight (BMI 25.0-29.9) acute February 23, 2025 11:28am Renal calculus acute February 23, 2025 11:28am Sleep apnea acute February 23 11:28am Hypertension chronic February 23 11:28am Other obesity acute March 31, 2025 9:29am Overweight (BMI 25.0-29.9) acute March 31, 2025 9:29am Renal calculus acute March 31, 2025 9:29am Sleep apnea acute March 31 9:29am Hypertension chronic March 31, 025 9:29am Other obesity acute May 12:49pm Overweight (BMI 25.0-29.9) acute May 24, 2025 12:49pm Sleep apnea acute May 24, 2025 12:49pm Hypertension chronic May 24, 2025 12:49pm [facility] Work Phone: 1(345) 635-348305-14-2025 Radiology Diagnostic study note [facility] Imaging Services [address], [place] [id number] Abdomen/Pelvis without Cont MR#: [id number] Acct: [id number] Name: GENNY NEWMAN Rep #: [id number] : 1965 F 60 From: Jonathan Meraz MD PCP: Dr. Forest Curtis MD Status: REG C LI Study:Abdomen/Pelvis without Cont Date of Exa m: 02/21/25 Exam# [id number] Ordering Dr: Uma Graham MD PROCEDURE: ABDOMEN/PELVIS WITHOUT CONT 02/21/2025 REASON FOR EXAM: URETERAL STONE No pain at this time. TECHNIQUE: Abdomen and pelvis CT without intravenous contrast. Noncontrast technique limits evaluation of the abdominal and pelvic viscera. Coronal and Sagittal reconstruction series were provided. One or more dose reduction techniques were used (e.g., Automated exposure control, adjustment of the mA and/or kV according to patient size, use of iterative reconstruction technique). PATIENT PREPARATION: Per protocol ORAL CONTRAST TYPE: None. CT DLP volume: 8.97 mGy. DLP: 432.94 COMPARISON: Prior study dated December 08, 2024. FINDINGS: Lung bases: Unremarkable Liver: Normal size. No obvious mass. Gallbladder: Once again, there is evidence of soft tissue density in the fundus of the gallbladder suggestive of possible tumefactive sludge. Spleen: Normal size. Pancreas: Normal size. No surrounding inflammation. Adrenals: Unremarkable Kidneys: There is a 2 mm nonobstructive calculus in the posterior calyx of the upper pole of the right kidney. A 3 mm calculus is seen in the lower pole calyx of the right kidney. Punctate nonobstructive calculus in the upper pole of the left kidney. Punctate nonobstructive calculus in the lower pole of the left kidney. Bladder: Unremarkable Reproductive Organs: Stable bilateral predominantly cystic lesions in the ovaries more prominent onthe right side. Correlation with ultrasound recommended. Bowel: Colonic diverticulosis without diverticulitis. Appendix: The appendix is not identified. There is no inflammatory process identified in the right lower quadrant to suggest appendicitis. Lymph nodes: Unremarkable. Vasculature: The abdominal aorta and IVC contours are normal. Noncontrast technique limits evaluation. Peritoneum / Retroperitoneum: Unremarkable Bones: Once again, there is evidence of minimal anterior listhesis of L5 on S1 with the spondylolysis of the pars interarticularis of the L5 vertebrae. CT/Abdomen/Pelvis without Cont IMPRESSION: Stable small bilateral nonobstructive intrarenal calculi. No evidence of hydronephrosis at this time. The remainder of the examination is unchanged. OVERALL FINAL ASSESSMENT: . LI-RADS is not meant to be used in patients <18 years or patients with cirrhosisdue to congenital hepatic fibrosis or due to vascular disorders, because these patients have a lower chance of developing HCC. Reading Location: [facility] CC: Dr. Uma Graham MD; Dr. Forest Curtis MD ~ Product Support Representative: Signed [facility]05-14-2025 Evaluation note* Diagnosis Onset Date Resolution Status Admit Date Other obesity acute February 23, 025 11:28am Overweight (BMI 25.0-29.9) acute February 23, 2025 11:28am Renal calculus acute February 23, 2025 11:28am Sleep apnea acute February 23 11:28am Hypertension chronic February 23 11:28am BMI 29.0-29.9,adult resolved February 102024 11:28am [facility] Work Phone: 1(824) 346-963804-22-2024 NotePap Smear Specimen AdequacyApril 2023 1:21pmComment.Satisfactory for evaluation. Endocervical component may not bedistinguished in cases of atrophy.[facility] INTER[facility]ACED A#[id number] Flower HospitalComment on above:Satisfactory for evaluation. Endocervical component may not bedistinguished in cases of atrophy.Evaluation note* Diagnosis Onset Date Resolution Status Renal calculus acute Renal calculus acute [facility] Work Phone: evaluation note* Diagnosis Onset Date Resolution Status Renal calculus acute Encounter for postoperative care noneactive [facility] Work Phone: evaluation noteNo assessment information available [facility] Work Phone: evaluation note* Diagnosis Onset Date Resolution Status Encounter for routine gynecological examination noneactive [facility] Work Phone: evaluation note* Diagnosis Onset Date Resolution Status BMI 31.0-31.9,adult acute Other obesity acute Renal calculus acute Sleep apnea acute Hypertension chronic [facility] Work Phone: evaluation note* Diagnosis Onset Date Resolution Status Other obesity acute Renal calculus acute Sleep apnea acute Hypertension chronic BMI 31.0-31.9,adult resolved BMI 30.0-30.9,adult acute Other obesity acute Sleep apnea acute Hypertension chronic Urinary tract infection none active [facility] Work Phone: Evaluation note* Diagnosis Onset Date Resolution Status Other obesity acute Renal calculus acute Sleep apnea acute Hypertension chronic BMI 31.0-31.9,adult resolved Other obesity acute Sleep apnea acute Hypertension chronic BMI 30.0-30.9,adult resolved Urinary tract infection none active BMI 29.0-29.9,adult acute Other obesity acute Renal calculus acute Sleep apnea acute Hypertension chronic [facility] Work Phone: Evaluation note* Diagnosis Onset Date Resolution Status Other obesity acute Renal calculus acute Sleep apnea acute Hypertension chronic BMI 29.0-29.9,adult resolved Acute left otitis media reso lved Blood blister resolved Other obesity acute Overweight (BMI 25.0-29.9) a cute Sleep apnea acute Hypertension chronic [facility] Work Phone: Progress note Author Susannah Rosario [facility] Note Date/Time March 31, 2025 10:1 2am [facility] [address], [address] [place] [address] OFFICE VISIT Date of Service: 03/31/25 MR#: [id number] Acct: [id number] Name: GENNY NEWMAN Rep #: [id number] : 1965 Provider: MYRNA Rosario Age/Sex: 60/F [place] [facility] [place] Signed Intake Vital Signs 02/23/25 11:30 03/31/25 09:39 Height 4 ft 10 in 4 ft 10 in Weight: 146 lb 2 oz 144 lb BMI 30.5 30.1 BP 146/81 H 134/86 H Pulse 73 Intake Visit Reasons: 5 wk f/u Optical 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 Required: No Is patient in pain?: No Allergies No Known Allergies Allergy (Verified 03/31/25 09:37) Medications ?Medication ?Instructions ?Recorded ?Confirmed ?Type ibuprofen 600 mg tablet 600 mg PO Q8H PRN PRN pain # 20 12/08/24 03/31/25 Rx TABLETS tamsulosin 0.4 mg capsule 0.4 mg PO DAILY #7 CAPSULES 12/08/24 03/31/25 Rx naltrexone 8 mg-bupropion 90 mg 2 tab PO BID 12 weeks #336 tabs 03/31/25 03/31/25 Rx tablet,extended release (Contrave) Last Menstrual Period: 05/10/20 Zika: Zika virus screening: Negative : No Have you fallen in the past year?: No PFSH PFSH Medical History History of stress test Cardiology follow-up encounter Hx of kidney disease Endometrial polyp Renal calculus Wears contact lenses Post-menopausal MRSA infection Postmenopausal bleeding Obesity Surgical History History of laparoscopy History of Family History Father No problems noted. 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 pets and animals: Yes leisure activities: other history of recent travel: Yes ([employer], [employer], [employer]) sexually active: Yes Smoking Status: Never smoker alcohol intake: current substance use type: does not use diet: low carbohydrate and other well-balanced diet: daily or most days caffeine: No what type of physical activity do you participate in: walking, aerobics and weight training frequency: other details: 10,000 steps daily seatbelt use: always do you feel safe at home: Yes 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 Date Name GA/Weeks Outcome Route Bth [facility]- Luisa 24 Unknown 1990-Richard Unknown 1991- Tia Unknown 1992- Larissa Delivery Date: Last Updated by: Millicent Charlton a few hours after - GBS infection HPI 5 wk f/u Details: GENNY NEWMAN is a 60 year old Female presenting for a weight management follow up. She reports she is doing well. Taking contrave 2 tabs twice a day. She is down additional 2 pounds. Has been traveling-this makes it difficult withher fasting as she is not sure when she will be able to eat on her trips. She continues to monitor her BP's at home; they are staying less than 140/90. She has her cuff here today to compare readings. Female Reproductive History Last Menstrual Period: 05/10/20 ROS Const Reports as per HPI, Denies difficulty sleeping, Denies excessive sweating, Denies fatigue (new onset severe) and Denies fever(s) Eyes Denies change in vision and Denies diplopia ENT Denies dizziness Card Denies chest pain, Denies dyspnea, Denies dyspnea on exertion, Denies palpitations and Denies rapid heart rate Resp Denies dyspnea and Denies dyspnea on exertion GI Reports as per HPI, Denies abdominal pain and Denies constipation Neuro No confusion, No dizziness and No memory loss Psych Denies confusion, Denies depression, Denies memory loss, Denies mood swings and Denies suicidal ideation Endo Denies excessive sweating, Denies fatigue (new onset severe), Denies palpitations and Reports other (denies symptoms of hypoglycemia) Exam Const General: cooperative, healthy appearing, comfortable and no acute distress Orientation: alert HENMT Head: normal to inspection and normocephalic Eyes General: appearance normal, both eyes and all related structures Neck Neck: normal visual inspection, no lymphadenopathy and trachea midline Thyroid: thyroid normal Resp Effort & Inspection: normal respiratory effort Auscultation: clear to auscultation bilaterally Cardio Rate: regular rate Rhythm: regular rhythm Heart Sounds: S1 normal and S2 normal Musc Other: gross motor intact no deficits, full bilateral strength Skin General: no rashes or lesions noted Neuro Motor: muscle tone normal throughout Extrem General: no pedal edema Assessment and Plan Assessment and Plan (1) Hypertension: Status: Chronic Comment: s/p 9% weight reduction Plan: BP stable today; records from home show stable BP. Recommend conitinuing to monitor--if greater than 140/90 needs to follow with PCP. No symptoms noted today. (2) Sleep apnea: Status: Acute Comment: seeing william for evaluation, recommend 10% weight reduction Plan: uses cpap at home. (3) Overweight (BMI 25.0-29.9): Status: Acute Comment: SW- 150 (160 previously) s/p 10% total weight reduction nutritional and medication intervention recommendations. Current 144lb. initial obesity assessment lab panel reviewed, ekg previously. (4) Other obesity: Status: Acute Comment: Nutrition plan: plan to restart 16:8 IF; bump up to 5x weekly, 4881-1527 Balanced calorie restricted nutritional plan. Travels often. Medication plan: Contrave. bps at home WNL, fu with pcp. control- post menopause. Behavior intervention: recommend daily journal of food intake with electronic methods; limit snacking. Exercise plan: 82822 steps daily and resistance training daily; recently bought a weighted vest; occasionally using. (5) Renal calculus: Status: Acute Plan: management through Dr. Graham. Medications: Refilled naltrexone-bupropion 8-90 mg (Contrave) 2 tabs PO BID 12 weeks 336 tabs 2RF Plan A comprehensive lifestyle modification program was recommended and reviewed withthe patient to address the above medical assessments. see additional a/p comments for more detailed plan information on each comorbidity. Discussed risks, benefits, and alternatives, as well as common side effects of various anti-obesity medications including on and off label use. I discussed that I will only prescribe anti-obesity medications to be used in conjunction with a formal nutritional plan. The patient was counseled regarding common risks, benefits, and side effects as well as the appropriate follow-up and program compliance that will be needed for medication to continue to be prescribed. Relevant weight management and prescription drug information handouts were given if needed. Motivational interviewing was performed at this visit on relevant topics based on the patients needs today. After reviewing her current history and preferences, I would consider her being a candidate now or in the future for the following medications/interventions: Phentermine: yes Topiramate: no Contrave: yes GLP-1 agonists: yes Metformin: yes Vyvanse: no Bariatric surgery: no Continue contrave. Follow up: 8 weeks; needs annual and WM check. She will follow up with PCP for BP if needed. 25 minutes face to face with patient, 5 minutes in precharting and in documentation of plan, reviewing of records and coordinating care. Quality Reporting Tobacco Screening ([facility] 138) Smoking Status: Never smoker Obesity Visit Obesity Testing Results Obesity Orderset Results: Cholesterol 213 mg/dL (200) H 09/13/24 Triglycerides 138 mg/dL (-199) 09/13/24 HDL Cholesterol 68 mg/dL (40-) 09/13/24 LDL Cholesterol 117 mg/dL (0-130) 09/13/24 VLDL Cholesterol 28 mg/dL (5-40) 09/13/24 Urine Protein 15 mg/dl (Negative) H 12/08/24 TSH 4.110 uIU/mL (0.358-3.740) H 09/13/24 Hemoglobin A1c 5.9 % (3.8-5.6) H 09/13/24 Calcium 9.7 mg/dL (7.6-11.0) 12/08/24 TSH 4.110 uIU/mL (0.358-3.740) H 09/13/24 Free T4 0.85 ng/dL (0.76-1.46) 09/13/24 Glucose 164 mg/dL (70-99) H 12/08/24 Complete Blood Count: RBC 4.60 M/mm3 (4.2-5.4) 12/08/24 WBC 12.2 K/mm3 (4.4-11.0) H 12/08/24 Hgb 13.4 g/dL (12.0-15.0) 12/08/24 Hct 40.1 % (37-47) 12/08/24 Plt Count 237 K/mm3 (150-450) 12/08/24 CMP: Glucose 164 mg/dL (70-99) H 12/08/24 BUN 21 mg/dL (4-19) H 12/08/24 BUN/Creatinine Ratio 19.0 RATIO (10-20) 12/08/24 Sodium 139 mmol/L (133-145) 12/08/24 Potassium 3.9 mmol/L (3.3-5.1) 12/08/24 Carbon Dioxide 20.2 mmol/L (22.0-29.0) L 12/08/24 Anion Gap 16 (5-15) H 12/08/24 Urinalysis Complete: Micro Urine Specimen 08/31/24 Urine Color Yellow (Yellow) 12/08/24 Urine Clarity Clear (Clear) 12/08/24 Urine Bilirubin Negative mg/dL (Negative) 12/08/24 Ur Ketones (Stick) Trace (5) 08/31/24 Urine Ketones Negative mg/dl (Negative) 12/08/24 Ur Specific [place] 1.020 (1.002-1.030) 12/08/24 Urine pH 6.0 (5.0 - 8.0) 12/08/24 Urine Protein 15 mg/dl (Negative) H 12/08/24 Urine Blood Large 08/31/24 Urine Occult Blood 150 /ul (Negative) H 12/08/24 Ur Squamous Epith Cells 0 SEEN /hpf (5-10) 12/08/24 Urine Bacteria 0 SEEN /hpf (None Seen) 12/08/24 Urine Mucus 0 SEEN /hpf (<or=2+) 12/08/24 Questionnaires Weight Management Follow-Up What nutritional plan/diet are you following?: contrave How are you tracking your food intake?: sometimes On average, how many days a week are you recording your food intake?: 3 How many days a week are you staying within your recommended intake goals?: 5 What is your current weekly exercise?: 10k steps . weights, yoga On a scale of 1-10, how difficult is it to follow your current weight managementplan?: 7 What are you struggling most with right now in following your weight loss plan?:eating when i shouldnt Are there any changes we need to make to your current plan right now?: ? Side Effects: No Chest Pain, No Palpitations, No Increased Heart Rate, No Irregular Heart Rhythm, No Increased Blood Pressure, No Change in breathing patterns, No Kidney Stones, No Change in vision, No Insomnia, No Difficulty withmemory/speech, Yes Numbness in hands/feet (with sleeping), No New onset severe fatigue, No Nausea/vomiting, No Constipation and No Depressed mood Are there any side effects interfering with quality of life enough you would want to stop medication?: No What's improved for you since losing weight and making your lifestyle change?: feel better Is there anything else we can help you with on your weight loss journey today?: ? 03/31/25 1012 <Electronically signed by Susannah NORRIS> Date _ Susannah Montoya Signature: Date (if applicable) CC: ~ [facility] Work Phone: Progress note Author Moon Slater [facility] Note Date/Time May 24, 2025 1: 40pm [facility] [address], [address] [place] [address] OFFICE VISIT Date of Service: 05/24/25 MR#: [id number] Acct: [id number] Name: GENNY NEWMAN Rep #: [id number] : 1965 Provider: Dr. 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 Required: No Is patient in pain?: No Allergies No Known Allergies Allergy (Verified 05/24/25 13:01) Medications ?Medication ?Instructions ?Recorded ?Confirmed ?Type naltrexone 8 mg-bupropion 90 mg 2 tab PO BID 12 weeks #336 tabs 03/31/25 05/24/25 Rx tablet,extended release (Contrave) tamsulosin 0.4 mg capsule 0.4 mg PO DAILY PRN 05/24/25 History tirzepatide (weight loss) 2.5 2.5 mg (0.5 mL) subcut Q WEEK #2 mL 05/24/25 05/24/25 Rx mg/0.5 mL subcutaneous pen injector (Zepbound) Is last menstrual period known: No Post menopausal: Yes Patient : No : No Nurse's Note: Weight management follow up. She is currently being treated with the anti obesity medication Contrave. Weight loss since previous visit: 0.4 lbs Total weight loss leading up to present visit: 11.4 lbs She is tracking her food intake, following IF-1500 calories per day, increasing protein intake. On average, she is tracking food intake 3 days a week and staying within intake goals 3 days a week. ? Her current weekly exercise is 10,000 steps daily with weights x4 times per weekand aerobics x3 times per week. On a scale 1-10 she rates the difficulty of her current weight management program a 6. She says she is struggling the most right now with what else she could be doing right now to continue to loose weight, her current weight is not where she wantsto be but she also does not know what she wants her end weight to be. side effects of medications: None PFSH Medical History History of stress test Cardiology follow-up encounter Hx of kidney disease Endometrial polyp Renal calculus Wears contact lenses Post-menopausal MRSA infection Postmenopausal bleeding Obesity Surgical History History of laparoscopy History of Family History Father No problems noted. 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 pets and animals: Yes leisure activities: other history of recent travel: Yes ([employer], [employer], [employer]) sexually active: Yes Smoking Status: Never smoker alcohol intake: current substance use type: does not use diet: low carbohydrate and other well-balanced diet: daily or most days caffeine: No what type of physical activity do you participate in: walking, aerobics and weight training frequency: other details: 10,000 steps daily seatbelt use: always do you feel safe at home: Yes 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 watching bps at home and they are fluctuating. Last PAP: 02/02/24 - normal History of abnormal PAP: Last mammogram: 04/07/25 - normal History of abnormal mammogram: Colon cancer screening: Other preventative health care screenings: PCP Kirsten Female Reproductive History Questions: metrorrhagia: No, sexually active: Yes, dyspareunia: No and PCB: No Menopausal Symptoms: No hot flashes, No night sweats, No weight change, No mood changes, No difficulty concentrating, No sleep problems and No change in libido ROS Const Constitutional: Reports as per HPI and weight loss; Denies fatigue, increased appetite, poor appetite, night sweats or weight gain Cardio Card: Denies chest pain Resp Resp: Denies cough or dyspnea GI GI: Reports as per HPI; Denies abdominal pain, bloating, constipation, nausea or vomiting : Reports as per HPI and other; Denies difficulty voiding, dysuria, hematuria, hot flashes, nipple discharge, pelvic pain, prolapse symptoms, urinary frequency, urinary incontinence, urinaryurgency, vaginal discharge, vaginal dryness, vaginal odor or vaginal pruritus Skin Skin/Breast: Denies changing lesions, breast mass, breast pain, breast skin changes or nipple discharge Psych Psych: Denies anxiety, change in libido, depression or difficulty concentrating Exam Const General: cooperative, healthy appearing, comfortable, no acute distress, well developed and well groomed HENOR Head: normal to inspection and normocephalic Ears: hearing grossly normal bilaterally and external ears normal Nose: external nose normal Face and sinus: normal facial exam Neck Neck: normal visual inspection, full ROM and no lymphadenopathy Thyroid: thyroid normal Chest Chest palpation & inspection: normal inspection of the chest Breast inspection: normal inspection of the breasts and normal inspection of theaxillae Breast palpation: normal palpation of the breasts, normal palpation of the axillae and no axillary lymphadenopathy Resp Effort & Inspection: normal respiratory effort GI Inspection: normal to inspection and non-distended Palpation: soft, no hepatosplenomegaly and no guarding General: bladder normal to palpation External Female Exam: normal external appearance, normal appearance of the urethra and no lesions Urethra: normal appearance of the urethra and normal palpation Speculum Exam - Vagina: normal appearance of the vagina and normal vaginal discharge Speculum Exam - Cervix: normal appearance of the cervix, no cervical discharge, no lesions and nontender Bimanual Exam- Vagina & Uterus: normal bimanual exam, uterine size normal, bladder normal to palpation, No tender, uterine mobility normal, consistency normal, non-tender and no cervical motion tenderness Bimanual Exam- Adnexa, other: normal adnexae, no masses and non-tender Skin General: no rashes or lesions noted Neuro General: patient alert, moves all extremities and no focal motor deficits Extrem General: normal to inspection and no pedal edema Psych Appearance: grossly normal Mental Status: mental status grossly normal Affect: normal affect Speech and Movement: speech and movement normal Attitude: cooperative Coding Level of Care Code Off vis,est,prev 40-64yrs Diagnoses Overweight (BMI 25.0-29.9) E66.3 Hypertension I10 Sleep apnea G47.30 Other obesity E66.8 Assessment and Plan Assessment and Plan (1) Overweight (BMI 25.0-29.9): Status: Acute Comment: SW- 150 (160 previously) s/p 10% total weight reduction nutritional and medication intervention recommendations. Current 144lb. initial obesity assessment lab panel reviewed, ekg previously. (2) Hypertension: Status: Chronic Comment: s/p 9% weight reduction (3) Sleep apnea: Status: Acute Comment: seeing william for evaluation, recommend 10% weight reduction. ordered zepbound. (4) Other obesity: Status: Acute Comment: Nutrition plan: plan to restart 16:8 IF; bump up to 5x weekly, [id number] Balanced calorie restricted nutritional plan. Travels often. Medication plan: Contrave. bps at home WNL, fu with pcp. control- post menopause. Behavior intervention: recommend daily journal of food intake with electronic methods; limit snacking. Exercise plan: 87466 steps daily and resistance training daily; recently bought a weighted vest; occasionally using. Orders: Orders [facility] MAMM (CAD)W/LOUISA BILAT 04/07/25 Z12.31 - Encounter for screening mammogramfor malignant neoplasm of breast Medications: New tirzepatide (weight loss) (Zepbound) for 4 weeks 2.5 mg (0.5 mL) subcut QWEEK 2 mL 0RF G47.30 - Sleep apnea, unspecified Plan Cervical cancer screening: pap hpv Breast cancer screening: mamm other health maintenance examination reviewed and orders placed if needed. Encouraged maintenance of a healthy weight and active lifestyle and handout given. Annual exam handout including recommendations for good health guidelines, Calcium/vitamin D recommendations, and basic screening information given. Problem list up to date, see problem list details for any additional plan information. Follow up in one year for annual health maintenance exam or sooner if needed. 05/24/25 1340 <Electronically signed by Moon taylor MD> Date _ Moon Slater MD Cosigner Signature: Date (if applicable) CC: ~ [facility] Work Phone: Reason for referral (narrative)No reason for referral information availableLong [facility] Center Work Phone: Reason for Referral Status Reason Specialty Diagnoses / Procedures Referred By Contact Referred To Contact [facility] Required Urology Diagnoses Ureterolithiasis Jus Ivey MD [address] [place] [address] [facility] [address] [place] [address] Scheduling Instructions [facility] [place] [place] [address], [address] [place] [address] Discharge Instructions * Instructions* Jus Ivey MD - 08/23/2020 Return to Emergency Room immediately if fever greater than 100.5, vomiting and unable to keep fluids or medications down or worsening pain in any other way. * Attachments The following attachments cannot be sent through Care Everywhere. * Kidney Stone (Palestinian) * Pulmonary Nodules: General Info (Palestinian) documented in this encounter Assessments Diagnosis Ureterolithiasis Calculus of ureter Pulmonary nodule, right Solitary pulmonary nodule Summary Purpose Family History No Family History Records Found Relationship Condition Age at Onset Recorded Date/T justine father Cardiac disease Unknown aunt Malignant neoplasm of breast Unknown mother Parkinson's disease Unknown Relationship Condition Age at Onset Recorded Date/T justine Not Specified Cardiac disease Unknown aunt Malignant neoplasm of breast Unknown mother Parkinson's disease Unknown Advance Directives No Advanced Directives Records Found Advance Directive Response Recorded Date/ Time Name of Medical Power of Tree Specialist Neo Max November 05, 2021 1:28pm Living Will No November 24 1:22am Power of Tree Specialist No November 24, 2021 1:22am Advance Directive Response Recorded Date/ Time Living Will No April 01, 2022 7:36am Power of Tree Specialist No April 01 7:36am Advance Directive Response Recorded Date/ Time Living Will No April 01, 2022 6:36am Power of Tree Specialist No April 01 6:36am Advance Directive Response Recorded Date/ Time Living Will Yes December 08 025 3:50am Do you have a Healthcare Pow er of Tree Specialist? Yes December 08, 2024 3:50am Name of Medical Power of Tree Specialist Neo brown December 08, 2024 3:50am Chief Complaint and Reason for Visit Chief Complaint KUB- KIDNEY STONES KIDNEY STONES PMB, Dr. Graham advised pt to schedule AUB FLANK PAIN Discuss getting D&C CAROTID BRUIT, ABD X-RAY LUNG FIELD CAROTID BRUIT, ABD X-RAY LUNG FIELD LEFT ESWL LEFT ESWL LEFT ESWL KUB- KIDNEY CALC. Reason for Visit Renal calculus Renal calculus Chief Complaint LEFT ESWL LEFT ESWL LEFT ESWL KUB- KIDNEY CALC. 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) KUB- KIDNEY STONE Reason for Visit Encounter for routin e gynecological examination Chief Complaint KUB- KIDNEY STONE Weight Management Consult, form mailed OBESITY Reason for Visit BMI 31.0-31.9,adult Other obesity Renal calculus Sleep apnea Hypertension Chief Complaint Weight Management Co nsult, form mailed OBESITY WT/BP/HR Urinary tract infection Reason for Visit Other obesity Renal calculus Sleep apnea Hypertension BMI 31.0-31.9,adult BMI 30.0-30.9,adult Other obesity Sleep apnea Hypertension Urinary tract infection Chief Complaint Weight Management Co nsult, form mailed OBESITY WT/BP/HR Urinary tract infection 6-7 WK FU CHRONIC CAUGH Reason for Visit Other obesity Renal calculus Sleep apnea Hypertension BMI 31.0-31.9,adult Other obesity Sleep apnea Hypertension BMI 30.0-30.9,adult Urinary tract infection BMI 29.0-29.9,adult Other obesity Renal calculus Sleep apnea Hypertension Chief Complaint 2 M FU EAR PAIN SCREENING TICK BITE/BRUISE 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) , wt mgmt fu Reason for Visit Other obesity Renal calculus Sleep apnea Hypertension BMI 29.0-29.9,adult Acute left otitis media Blood blister Other obesity Overweight (BMI 25.0-29.9) Sleep apnea Hypertension Chief Complaint Admit Date flank December 08, 2024 2:41am URETERAL STONE February 21, 2025 4:07p m 3 m f/u February 23, 2025 11:28 am Reason for Visit Admit Date Other obesity February 23, 2025 11:28 am Overweight (BMI 25.0-29.9) February 23 11:28am Renal calculus February 23, 2025 11:28 am Sleep apnea February 23, 2025 11:28 am Hypertension February 23, 2025 11:28 am BMI 29.0-29.9,adult February 23, 2025 11:28 am Reason for Visit Admit Date Other obesity February 23, 2025 11:28 am Overweight (BMI 25.0-29.9) February 23 11:28am Renal calculus February 23, 2025 11:28 am Sleep apnea February 23, 2025 11:28 am Hypertension February 23, 2025 11:28 am Chief Complaint Admit Date flank December 08, 2024 2:41am URETERAL STONE February 21, 2025 4:07p m 3 m f/u February 23, 2025 11:28 am INT LAB ORDER March 02, 2025 4:23p m Chief Complaint Admit Date flank December 08, 2024 2:41am URETERAL STONE February 21, 2025 4:07p m 3 m f/u February 23, 2025 11:28 am INT LAB ORDER March 02, 2025 4:23p m 5 wk f/u March 31, 2025 9:29 am Reason for Visit Admit Date Other obesity February 23, 2025 11:28 am Overweight (BMI 25.0-29.9) February 23 11:28am Renal calculus February 23, 2025 11:28 am Sleep apnea February 23, 2025 11:28 am Hypertension February 23, 2025 11:28 am Other obesity March 31, 2025 9:29 am Overweight (BMI 25.0-29.9) March 31 9:29am Renal calculus March 31, 2025 9:29 am Sleep apnea March 31, 2025 9:29 am Hypertension March 31, 2025 9:29 am Chief Complaint Admit Date URETERAL STONE February 21, 2025 4:07p m 3 m f/u February 23, 2025 11:28 am INT LAB ORDER March 02, 2025 4:23p m 5 wk f/u March 31, 2025 9:29 am screen for breast cancer April 07, 2025 2:36pm Chief Complaint Admit Date URETERAL STONE February 21, 2025 4:07p m 3 m f/u February 23, 2025 11:28 am INT LAB ORDER March 02, 2025 4:23p m 5 wk f/u March 31, 2025 9:29 am screen for breast cancer April 07, 2025 2:36pm 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) *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* May 12:49pm Reason for Visit Admit Date Other obesity February 23, 2025 11:28 am Overweight (BMI 25.0-29.9) February 23 11:28am Renal calculus February 23, 2025 11:28 am Sleep apnea February 23, 2025 11:28 am Hypertension February 23, 2025 11:28 am Other obesity March 31, 2025 9:29 am Overweight (BMI 25.0-29.9) March 31 9:29am Renal calculus March 31, 2025 9:29 am Sleep apnea March 31, 2025 9:29 am Hypertension March 31, 2025 9:29 am Other obesity May 24, 2025 12 :49pm Overweight (BMI 25.0-29.9) May 24, 2025 12:49pm Sleep apnea May 24, 2025 12 :49pm Hypertension May 24, 2025 12 :49pm Additional Source Comments Reason for Visit (unrecogniz ed section and content) Reason Comments Flank Pain INFORMATION SOURCE (unrecogn ized section and content) DATE CREATED AUTHOR 08/24/2020 [facility] DATE CREATED AUTHOR AUTHOR'S ORGANIZ ATION 05/26/2025 [facility] Goals (unrecognized section and content) Goals may be documented in a n alternate sectionGoals may be documented in an alternate sectionGoals may be documented in an alternate sectionGoals may be documented in an alternate sectionGoals may be documented in an alternate sectionGoals may be documented in an alternate sectionGoals may be documented in an alternate sectionGoals may be documented in an alternate sectionGoals may be documented in an alternate sectionGoals may be documented in an alternate sectionGoals may be documented in an alternate sectionGoals may be documented in an alternate sectionGoals may be documented in an alternate section Care Teams (unrecognized sec tion and content) Team Status: Active Member Role Status Dates Dr. Rainer Teran MD Family Provider Active Dr. Forest Curtis MD Primary Care Provider Active Team Status: Inactive Member Role Status Dates Dr. Forest Curtis MD Primary Care Provider, Referring Provider Active Dr. Moon Slater MD Attending Provider Active Team Status: Inactive Member Role Status Dates Dr. Forest Curtis MD Primary Care Provider Active Dr. Uma Graham MD Attending Provider, Referring P sarah Active Team Status: Inactive Member Role Status Dates Dr. Foerst Curtis MD Primary Care Provider Active Dr. Moon Slater MD Attending Provider, Referr ing Provider Active Team Status: Inactive Member Role Status Dates Dr. Forest Curtis MD Primary Care Provider, Referring Provider Active SASHA Badillo Attending Provider Active Team Status: Inactive Member Role Status Dates Dr. Forest Curtis MD Primary Care Provider Active SASHA Badillo Attending Provider Active Team Status: Inactive Member Role Status Dates Dr. Forest Curtis MD Primary Care Provider Active Dr. Simba Collier MD Attending Provider, Referring Pr ovidregino Active Team Status: Active Member Role Status Dates Dr. Forest Curtis MD Primary Care Provider Active Team Status: Inactive Member Role Status Dates Dr. Forest Curtis MD Primary Care Provider Active Start: December 08, 2024 End: December 08, 2024 Dr. Montez Nance DO Attending Provider Active Start: December 08, 2024 End: December 08, 2024 Dr. Montez Nance DO Emergency Provider Active Start: December 08, 2024 End: December 08, 2024 Dr. Uma Graham MD Other Provider Active Sta rt: December 08, 2024 End: December 08, 2024 Team Status: Active Member Role Status Dates Dr. Forest Curtis MD Primary Care Provider Active Start: February 21, 2025 Dr. Uma Graham MD Attending Provider Active Start: February 21, 2025 Dr. Uma Graham MD Referring Provider Active Start: February 21, 2025 Team Status: Inactive Member Role Status Dates Dr. Forest Curtis MD Primary Care Provider Active Start: February 23, 2025 End: February 23, 2025 Dr. Forest Curtis MD Referring Provider Active Start: February 23, 2025 End: February 23, 2025 MYRNA Reyes Attending Provider Active Start: February 23, 2025 End: February 23, 2025 Team Status: Inactive Member Role Status Dates Dr. Forest Curtis MD Primary Care Provider Active Start: February 21, 2025 End: February 21, 2025 Dr. Uma Graham MD Attending Provider Active Start: February 21, 2025 End: February 21, 2025 Dr. Uma Graham MD Referring Provider Active Start: February 21, 2025 End: February 21, 2025 Team Status: Inactive Member Role Status Dates Dr. Forest Curtis MD Primary Care Provider Active Start: March 02, 2025 End: March 02, 2025 Dr. Forest Curtis MD Attending Provider Active Start: March 02, 2025 End: March 02, 2025 Dr. Forest Curtis MD Referring Provider Active Start: March 02, 2025 End: March 02, 2025 Team Status: Inactive Member Role Status Dates Dr. Forest Curtis MD Primary Care Provider Active Start: March 31, 2025 End: March 31, 2025 Dr. Forest Curtis MD Referring Provider Active Start: March 31, 2025 End: March 31, 2025 MYRNA Reyes Attending Provider Active Start: March 31, 2025 End: March 31, 2025 Team Status: Active Member Role/Relationship Status Dates Dr. Forest Curtis MD Primary Care Provider Active Team Status: Inactive Member Role/Relationship Status Dates Dr. Forest Curtis MD Primary Care Provider Active Start: February 21, 2025 End: February 21, 2025 Dr. Uma Graham MD Attending Provider Active Start: February 21, 2025 End: February 21, 2025 Dr. Uma Graham MD Referring Provider Active Start: February 21, 2025 End: February 21, 2025 Team Status: Inactive Member Role/Relationship Status Dates Dr. Forest Curtis MD Primary Care Provider Active Start: February 23, 2025 End: February 23, 2025 Dr. Forest Curtis MD Referring Provider Active Start: February 23, 2025 End: February 23, 2025 MYRNA Reyes Attending Provider Active Start: February 23, 2025 End: February 23, 2025 Team Status: Inactive Member Role/Relationship Status Dates Dr. Forest Curtis MD Primary Care Provider Active Start: March 02, 2025 End: March 02, 2025 Dr. Forest Curtis MD Attending Provider Active Start: March 02, 2025 End: March 02, 2025 Dr. Forest Curtis MD Referring Provider Active Start: March 02, 2025 End: March 02, 2025 Team Status: Inactive Member Role/Relationship Status Dates Dr. Forest Curtis MD Primary Care Provider Active Start: March 31, 2025 End: March 31, 2025 Dr. Forest Curtis MD Referring Provider Active Start: March 31, 2025 End: March 31, 2025 MYRNA Reyes Attending Provider Active Start: March 31, 2025 End: March 31, 2025 Team Status: Inactive Member Role/Relationship Status Dates Dr. Forest Curtis MD Primary Care Provider Active Start: April 07, 2025 End: April 07, 2025 Dr. Moon Slater MD Attending Provider Active Start: April 07, 2025 End: April 07, 2025 Dr. Moon Slater MD Referring Provider Active Start: April 07, 2025 End: April 07, 2025 Team Status: Inactive Member Role/Relationship Status Dates Dr. Forest Curtis MD Primary Care Provider Active Start: April 12, 2025 Dr. Uma Graham MD Attending Provider Active Start: April 12, 2025 Team Status: Inactive Member Role/Relationship Status Dates Dr. Forest Curtis MD Primary Care Provider Active Start: May 24, 2025 End: May 24, 2025 Dr. Forest Curtis MD Referring Provider Active Start: May 24, 2025 End: May 24, 2025 Dr. Moon Slater MD Attending Provider Active Start: May 24, 2025 End: May 24, 2025 FOR RECORDS PERTAINING TO PATIENTS WHO ARE [...] BE BASED ON THE PRIMARY CLINICAL RECORDS. [facility] [employer] [facility]. provides no warranty or guarantee of the accuracy or completeness of information in this document.
[2025-06-23 02:39] LABS: Anion Gap 19 (5-15); BUN 22 mg/dL (4-19); BUN/Creat Ratio 19.6 RATIO (10-20); Calcium,Total 9.6 mg/dL (7.6-11.0); Carbon Dioxide 18.3 mmol/L (21.0-32.0); Chloride 100 mmol/L (98-108); Estimated Creatinine Clearance 44.99 ml/min (50-250); Glucose 173 mg/dL (70-99); Potassium 3.8 mmol/L (3.3-5.1)
[2025-06-23] MEDS: DiphenhydrAMINE 50 MG/ML Syringe IV (03:18)
[2025-06-23 03:40] VITALS: BP 164/99; PULSE 81; RESP 16; O2SAT 100
--- NOTE | 2025-06-23 04:06 | EX.ED.DYSGE1 ---
HPI History of Present Illness Chief Complaint: Complaint Informant: patient and spouse/S.O. Narrative Narrative: Patient is a 60-year-old female with past medical history of kidney stone. She states that she has had to see urology in the past secondary to this and has required lithotripsy. She reports in the last day or so she has noticed pain mainly along the right abdomen/back. With this she is also felt pressure in the suprapubic region and is noticed blood with urination. She states that she is unsure if she has a repeat kidney stone or UTI. She states symptoms worsened this evening and secondary to this she comes in for evaluation. [facility] Medical History History of stress test Cardiology follow-up encounter Hx of kidney disease Endometrial polyp Renal calculus Wears contact lenses Post-menopausal MRSA infection Postmenopausal bleeding Obesity Home Medications ?Medication ?Instructions ?Recorded ?Last Taken ?Type naltrexone 8 mg-bupropion 90 mg 2 tab PO BID 12 weeks #336 tabs 03/31/25 Unknown Rx tablet,extended release (Contrave) tamsulosin 0.4 mg capsule 0.4 mg PO DAILY PRN 05/24/25 Unknown History tirzepatide (weight loss) 2.5 2.5 mg (0.5 mL) subcut QWEEK #2 mL 05/24/25 Unknown Rx mg/0.5 mL subcutaneous pen injector (Zepbound) ketorolac 10 mg tablet 10 mg PO 4X/DAY PRN pain 5 days 06/23/25 Unknown Rx #20 tabs ondansetron 4 mg disintegrating 4 mg PO TID PRN nausea and 06/23/25 Unknown Rx tablet vomiting #21 tabs Allergy/AdvReac Type Severity Reaction Status Date / Time No Known Allergies Allergy Verified 06/23/25 01:42 Family History Father No problems noted. 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 pets and animals: Yes leisure activities: other history of recent travel: Yes ([place], [place], [place]) sexually active: Yes Smoking Status: Never smoker alcohol intake: current substance use type: does not use diet: low carbohydrate and other well-balanced diet: daily or most days caffeine: No what type of physical activity do you participate in: walking, aerobics and weight training frequency: other details: 10,000 steps daily seatbelt use: always do you feel safe at home: Yes 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 ROS ROS ED Constitutional Constitutional ED: Denies chills or fever(s) ENT ENT ED: Denies sore throat Cardiovascular Cardiovascular: Denies chest pain Respiratory/Chest Respiratory/Chest: Denies cough or dyspnea Gastrointestinal Gastrointestinal: Reports abdominal pain, nausea and vomiting; Denies diarrhea Genitourinary Genitourinary ED: Reports hematuria; Denies dysuria Musculoskeletal Musculoskeletal: Reports back pain and other Details: Positive right flank pain ; Denies myalgias Integumentary Denies rash Neurologic Neurologic: Denies headache(s) Hematologic/Lymphatic Hematologic/Lymphatic: Denies easy bleeding or easy bruising EXAM Physical Exam Const Vital Signs: 06/23/25 01:41 06/23/25 03:40 06/23/25 04:24 Temperature 97.6 F L 98.0 F Temperature Source Oral Pulse Rate 73 81 79 Respiratory Rate 18 16 18 Blood Pressure 136/112 H 164/99 H 143/80 H Blood Pressure Mean 120 120 101 Pulse Ox 100 100 98 Oxygen Delivery Method Room Air Room Air Positive well nourished and well developed General Appearance ED: well developed; Negative for pallor HEENT HEENT Narrative: Normocephalic atraumatic Eyes PERRL and EOMs intact bilaterally General Eye ED: Negative for scleral icterus Neck supple Neck Narrative: No nuchal rigidity or meningeal signs Resp normal respiratory effort and clear to auscultation bilaterally Cardio regular rate and regular rhythm Rate: other Other Details: Heart is regular rate and rhythm without murmurs rubs or gallops Radial and carotid pulses are equal and symmetric GI non-distended and no masses GI Narrative: Abdomen is soft and nondistended with hypoactive bowel sounds. There is pain along the right lateral abdomen and in the suprapubic region but no voluntary guarding or rigidity or pulsatile mass Auscultation: hypoactive bowel sounds Palpation: soft Back/Spine Back/Spine Narrative: Positive right CVA pain noted Extremity normal to inspection Neuro oriented x3, CN's II-XII intact bilaterally and no sensory deficits noted Sensorium / Orientation: alert Motor Exam: strength 5/5 throughout Psych mental status grossly normal Skin no rashes or lesions noted General Skin Exam: Negative for jaundice or pallor MDM MDM MDM Narrative Medical decision making narrative: Patient arrived to the ER hypertensive but states she gets this way when she is in pain and otherwise vitals are stable. She reported mainly right sided abdominal and back pain for the last day with blood in the urine and she states this is similar to kidney stone or UTI. In order to rule out UTI versus pyelonephritis versus kidney stone versus acute kidney injury I did elect to perform basic laboratory studies and a urine sample. We discussed performing a CT scan but chart review reveals she had a CT scan in February of this year which showed a right sided 2 and 3 mm kidney stone. With pain on the right side and this known history symptoms are most consistent with ureteral calculus. The patient states she has had multiple CT scans and would prefer not to undergo repeat imaging especially as there was known kidney stones on the last scan and symptoms are on that side. Blood work revealed mild leukocytosis at 12.3 which is most likely stress response as her urine sample does not show any sign of infection. There is no signs of acute kidney injury as creatinine is normal at 1.13. After IV hydration Toradol Zofran Benadryl and Haldol the patient had resolution of her pain. Therefore this time the patient does not have urosepsis she does not have acute kidney injury and she is not in intractable pain and therefore there is no need for emergent urology consultation or admission to the hospital. The patient will follow-up with her urologist as an outpatient to discuss need for imaging and/or lithotripsy/stent placement. However at this time without signs of infection kidney damage or intractable pain she is otherwise safe for discharge. History & Record Review Discussion w/independent historian: Patient and Significant other Lab Data Attestation: I reviewed the patient's lab results. Labs: Laboratory Results - last 24 hr 06/23/25 06/23/25 01:50 01:55 WBC 12.3 H RBC 4.51 Hgb 13.4 Hct 39.0 MCV 86.5 MCH 29.7 MCHC 34.4 RDW Std Deviation 39.8 RDW Coeff of Kit 12.5 Plt Count 292 MPV 9.3 Immature Gran % (Auto) 0.400 Neut % (Auto) 62.9 Lymph % (Auto) 29.4 [place] % (Auto) 5.4 Eos % (Auto) 1.5 Baso % (Auto) 0.4 Absolute Neuts (auto) 7.7 Absolute Lymphs (auto) 3.62 Nucleated RBC % 0 Sodium 137 Potassium 3.8 Chloride 100 Carbon Dioxide 18.3 L Anion Gap 19 H BUN 22 H Creatinine 1.13 Estim Creat Clear Calc 44.99 L Est GFR (MDRD) Non-Af 56 L BUN/Creatinine Ratio 19.6 Glucose 173 H Calcium 9.6 Urine Color Yellow Urine Clarity Sl. Cloudy Urine pH 8.0 Ur Specific [place] 1.015 Urine Protein 15 H Urine Glucose (UA) Normal Urine Ketones 50 H Urine Occult Blood 10 H Urine Nitrite Negative Urine Bilirubin Negative Urine Urobilinogen Normal Ur Leukocyte Esterase Negative Urine RBC 0-5 SEEN Urine WBC 0-5 SEEN Ur Squamous Epith Cells 0-5 SEEN Urine Bacteria RARE Urine Mucus 0 SEEN Discharge Plan Triage Chief Complaint: Complaint ED Provider: Brenton Nicolas Dx/Rx/DC Orders Clinical Impression: Kidney stone, Renal colic, Hypertension Instructions: ED Kidney Stone with Pain Prescriptions: New ketorolac 10 mg tablet 10 mg PO 4X/DAY PRN (Reason: pain) 5 Days Qty: 20 0RF ondansetron 4 mg tablet,disintegrating 4 mg PO TID PRN (Reason: nausea and vomiting) Qty: 21 0RF No Action Contrave 8-90 mg tablet extended release 2 tab PO BID 84 Days Qty: 336 2RF tamsulosin 0.4 mg capsule 0.4 mg PO DAILY PRN Zepbound 2.5 mg/0.5 mL pen injector 2.5 mg subcut QWEEK Qty: 2 0RF Rx Instructions: for 4 weeks Primary Care Provider: Forest Curtis Referrals: Uma Graham MD [Med Staff - Active Staff] - Forest Curtis MD [Primary Care Provider] - Activity Restrictions/Additional Instructions: Please keep yourself well-hydrated and stay active to help pass your kidney stone. Take the Toradol with 2 extra strength Tylenol to help control pain. You can take both the Toradol and Tylenol up to 4 times a day. You may add 2 [id number] Benadryl up to 3 times a day for pain relief if needed. If you develop a fever of 100.4 or higher or have worsening pain despite taking your medications please return to the ER for repeat evaluation. Please continue your tamsulosin/Flomax as this will help with potentially pass the kidney stone as well. Print Language: Kinyarwanda Disposition Disposition: Home, Self Care Discharge Date/Time: 06/23/25 04:25
[2025-06-23 04:24] VITALS: BP 143/80; PULSE 79; RESP 18; TEMP 36.7; O2SAT 98
== END 2025-06-23 04:25 | disposition home or self-care (01) ==
PROVIDERS: Emergency Provider Emergency Medicine; PCP Family Medicine; Visit Provider Emergency Medicine
DX: N20.0 Calculus of kidney (principal); I10 Essential (primary) hypertension; D72.829 Elevated white blood cell count, unspecified
CPT/HCPCS: 80048; 81001; 85025; 96361; 96374; 96375; 99283; A4216; J2405

== ENCOUNTER → 2025-08-31 | Outpatient (CLI) | payer OTHER, SELFPAY ==
--- NOTE | 2025-08-31 07:57 | RAD_ITS ---
PROCEDURE: ABDOMEN SINGLE VIEW 08/31/2025 REASON FOR EXAM: KIDNEY STONES TECHNIQUE: Procedure Code: RADABD Modality: DX Procedure: ABDOMEN SINGLE VIEW COMPARISON: KUB, 04/09/2023. FINDINGS: There is moderate gastric distention. There is an otherwise unremarkable bowel gas pattern. There are no abnormal soft tissue calcifications projected over either renal outline or along the path of either ureter. There are no significant bony abnormalities. RAD/Abdomen Single View IMPRESSION: Gastric distention. No kidney stones identified. Reading Location: [place] [id number]
[2025-08-31 10:19] LABS: Hematocrit 39.2 % (37-47); Hemoglobin 12.8 g/dL (12.0-15.0); Immature Granulocytes Count 0.010 X10^3/uL (0.0-0.0); Mean Corp Hgb Conc 32.7 g/dL (32-36); Mean Corpuscular Volume 89.9 fL (81-99); Mean Platelet Vol. 9.2 fl (6.2-12.0); NRBC Flagged by Analyzer 0 % (0-5); Platelet Count 224 K/mm3 (150-450); RBC Distribution Width CV 12.6 % (11.6-14.6); RBC Distribution Width SD 41.1 fl (35.1-43.9); Red Blood Count 4.36 M/mm3 (4.2-5.4); White Blood Count 8.3 K/mm3 (4.4-11.0)
[2025-08-31 10:40] LABS: AST(SGOT) 23 U/L (<=31); Alanine Aminotransfer ALT/SGPT 29 U/L (<=34); Albumin, Serum 4.5 g/dL (3.5-5.0); Alkaline Phosphatase 80 U/L (35-104); Anion Gap 9 (5-15); BUN 16 mg/dL (4-19); BUN/Creat Ratio 17.8 RATIO (10-20); Calcium,Total 9.9 mg/dL (7.6-11.0); Carbon Dioxide 27.1 mmol/L (21.0-32.0); Chloride 104 mmol/L (98-108); Cholesterol 235 mg/dL (<=200); Globulin 3.0 g/dL (2.2-4.2); Glucose 110 mg/dL (70-99); Low Density Lipoprotein Calc. 146 mg/dL; Potassium 4.1 mmol/L (3.3-5.1); Triglycerides 145 mg/dL; Very Low Density Lipoprotein 29 mg/dL (5-40); cholesterol:hdl ratio screen 3.74
== END | disposition home or self-care (01) ==
PROVIDERS: PCP Family Medicine; Referring Provider Urology; Visit Provider Urology
DX: N20.0 Calculus of kidney (principal); I10 Essential (primary) hypertension; R23.3 Spontaneous ecchymoses
CPT/HCPCS: 36415; 74018; 80053; 80061; 85025